=== PATIENT | male | born 1965 | race Caucasian/White ===

== ENCOUNTER → 2016-07-16 | Day surgery (SDC) | payer BC ==
[2016-07-10 07:58] VITALS: Ht 182.9 cm; Wt 168.2 kg
[~2016-07-16] VITALS: Ht 182.9 cm; Wt 168.2 kg
[~2016-07-16] MED LIST: ASPI81TA28 PO; BTP80 PO; CMD5 PO; FURO20TA PO; LIDOCAINE HCL 2% 2 ML VIAL (20MG/ML) ONE; LISI1TAB3 PO; MIDAZOLAM HCL 1 MG/ML 2ML VIAL ONE; ONDANSETRON INJ 2 MG/ML 2 ML VIAL IV PRN; OXYC-57 PO; PHEN-775 PO; PHEN95TA14 PO; PROPOFOL IV EMULSION 10 MG/ML 20 ML VIAL IV ONE; SOTA80TA PO; TAMS0.4C38 PO
[2016-07-16 09:41] VITALS: TEMP 36.6
--- NOTE | 2016-07-16 09:50 | Endo History and Physical ---
History & Physical Date of Service: Jul 16, 2016. Chief Complaint: screening Referring Physician: Liv CAPUTO History of Present Illness patient for CRC screening, no symptoms or family history. Past surgical history notable for an appendectomy and umbilical hernia repair. Past Surgical History Hx Cardiac Surgery: No Hx Internal Defibrillator: No Hx Pacemaker: No Hx Abdominal Surgery: Yes (APPY) Hx Cancer Surgery: No Hx Thoracic Surgery: No Hx Orthopedic: No Hx Urinary Tract Surgery: No Family History None Social History Smoking Status: Never Smoker Hx Alcohol Use: Yes (OCCASSIONALLY) Allergies Coded Allergies: No Known Allergies (Verified , 07/16/16) Current Medications Reported Home Medications Medications Dose Route/Sig Max Daily Dose Days Date Category Zestril (Lisinopril) 30 Mg Tab 30 Mg PO QAM 06/25/16 Reported Aspirin Ec (Aspirin) 81 Mg Tab 81 Mg PO QAM 01/01/16 Reported Vital Signs Weight (Kilograms): 168.18 Height (Feet): 6 Height (Inches): 0 Date Time Temp Pulse Resp B/P Pulse Ox O2 Delivery O2 Flow Rate FiO2 07/16/16 09:41 36.6 84 20 159/78 98 Room Air Physical Exam General Appearance: no apparent distress Respiratory/Chest: Auscultation: breath sounds normal Cardiovascular: Heart Auscultation: RRR Abdomen: Inspection & Palpation: soft Assessment and Plan Patient for CRC screening, discussed the risks to include bleeding, infection, peforation, pain, and missed polyps.
--- NOTE | 2016-07-16 10:43 | Discharge Instructions ---
Endoscopy Patient Instructions Date / Procedure(s) Performed Jul 16, 2016. Colonoscopy Allergy Information Coded Allergies: No Known Allergies (Verified , 07/16/16) Discharge Date / Findings Jul 16, 2016. Several colon polyps Internal hemorrhoids diverticulosis of the colon Medication Instructions Stopped Medication(s): stopped ASA Thursday Reported Home Medications Medications Dose Route/Sig Max Daily Dose Days Date Category Zestril (Lisinopril) 30 Mg Tab 30 Mg PO QAM 06/25/16 Reported Aspirin Ec (Aspirin) 81 Mg Tab 81 Mg PO QAM 01/01/16 Reported Provider Instructions Activity Restrictions - No exercising or heavy lifting for 24 hours. - Do not drink alcohol the day of the procedure. - Do not drive a car or operate machinery until the day after the procedure. - Do not make any important decisions or sign important papers in 24 hours after the procedure. Following Day: - Return to full activity which may include returning to work/school. Diet Start your diet with liquids and light foods (jello, soup, juice, toast). Then eat your usual diet if not nauseated. Treatment For Common After Affects For mild abdominal pain, bloating, or excessive gas: - Rest - Eat lightly - Lie on right side Follow-Up Information Await pathology results Repeat colonoscopy in 3 to 5 years depending on the pathology Anesthesia Information What You Should Know You have had a procedure that required some medicine to reduce anxiety and discomfort. This treatment is called moderate sedation. After receiving the treatment, you may be sleepy, but you will be able to breathe on your own. The effects of the treatment may last for several hours. Follow these instructions along with Activity/Diet recommendations noted above: * Do NOT do anything where dizziness or clumsiness would be dangerous. * Rest quietly at home today, then you can be up and about tomorrow. * Have a responsible person stay with you the rest of today. * You may have had an I.V. today. If so, you may take the dressing off later today. Recommendations Call your doctor if: * Trouble breathing * Continuous vomiting for more than 24 hours * Temperature above 101 degrees * Severe abdominal pain or bloating * Pain not relieved by pain medicine ordered * There is increased drainage or redness from any incision * A large amount of rectal bleeding greater than 2-3 tablespoons. (If you had a polyp/s removed or have hemorrhoids, a small amount of blood - from the rectum is to be expected.) * You have any unanswered questions or concerns. IN THE EVENT OF A SERIOUS EMERGENCY, GO TO THE NEAREST EMERGENCY ROOM Your discharge instructions were prepared by provider Missy Shultz. Patient Instructions Signature Page [place] Patient (or Guardian) Signature/Date: I have read and understand the instructions given to me by my caregivers. Caregiver/RN/Doctor Signature/Date: The above-named patient and/or guardian has received patient instructions on this date. + Original Patient Signature Page (only) stays with chart. Please make copy for patient.
[2016-07-16 11:05] VITALS: BP 146/89; PULSE 70; O2SAT 97
--- NOTE | 2016-07-16 12:34 | Anesthesiology Progress Note ---
Anesthesia Post Op Note Date & Time Jul 16, 2016 at 12:33 Vital Signs Pain Intensity: 0 Vital Signs Past 12 Hours Date Time Temp Pulse Resp B/P Pulse Ox O2 Delivery O2 Flow Rate FiO2 07/16/16 11:05 70 20 146/89 97 Room Air 07/16/16 10:50 76 20 140/76 96 Room Air 07/16/16 10:35 77 20 132/66 97 Room Air 07/16/16 09:41 36.6 84 20 159/78 98 Room Air Notes Mental Status: alert / awake / arousable Nausea / Vomiting: adequately controlled Pain: adequately controlled Airway Patency, RR, SpO2: stable & adequate BP & HR: stable & adequate Hydration State: stable & adequate Anesthetic Complications: no major complications apparent
== END | disposition home or self-care (01) ==
LOC: C.GI 09:22
PROVIDERS: ATTEND Internal Medicine Gastroenterology
DX: Z12.11 Encounter for screening for malignant neoplasm of colon (principal); D12.2 Benign neoplasm of ascending colon; D12.4 Benign neoplasm of descending colon; D12.5 Benign neoplasm of sigmoid colon; K57.32 Diverticulitis of large intestine without perforation or abscess without bleeding; K64.8 Other hemorrhoids; Z79.82 Long term (current) use of aspirin; I10 Essential (primary) hypertension; E66.9 Obesity, unspecified

== ENCOUNTER 2016-09-03 07:02 | Day surgery (SDC) | payer BC ==
[2016-08-25 14:14] VITALS: BMI 50.0
[~2016-09-03] VITALS: Ht 182.9 cm; Wt 165.9 kg
[~2016-09-03 07:02] MED LIST changes: -ASPI81TA28 PO; -BTP80 PO; +CEFAZOLIN 3000 MG/65 ML D5W IV SCH; -CMD5 PO; -FURO20TA PO; +LACTATED RINGER'S 1000ML 1,000 ML IV SCH; -LIDOCAINE HCL 2% 2 ML VIAL (20MG/ML) ONE; -LISI1TAB3 PO; -MIDAZOLAM HCL 1 MG/ML 2ML VIAL ONE; -ONDANSETRON INJ 2 MG/ML 2 ML VIAL IV PRN; -OXYC-57 PO; -PHEN-775 PO; -PHEN95TA14 PO; -PROPOFOL IV EMULSION 10 MG/ML 20 ML VIAL IV ONE; -SOTA80TA PO; -TAMS0.4C38 PO
[2016-09-03 07:44] VITALS: BP 154/80; PULSE 72; TEMP 36.7; O2SAT 99; Ht 182.9 cm; Wt 165.9 kg
[2016-09-03 07:44] LABS: HEMATOCRIT 42.1 % (42-52); MEAN CELL VOLUME 102.7 fL (80-100); MEAN CORPUSCULAR HEMOGLOBIN 35.1 pg (25-34); MEAN PLATELET VOLUME 8.7 fL (7.4-10.4); PLATELET COUNT 204 K/uL (130-400); WHITE BLOOD COUNT 5.07 K/uL (4.8-10.8)
[2016-09-03 07:47] LABS: MEAN CORPUSCULAR HGB CONC 34.2 g/dl (32-36)
[2016-09-03] MEDS ORDERED: FENTANYL CITRATE INJ 50 MCG/1 ML 2 ML VIAL ONE (08:13)
[2016-09-03] MEDS ORDERED: MIDAZOLAM HCL 1 MG/ML 2ML VIAL ONE (08:13)
[2016-09-03] MEDS ORDERED: KETAMINE HCL INJ 50 MG/ML 10 ML VIAL ONE (08:13)
[2016-09-03] MEDS ORDERED: HYDROmorphone INJ 1 MG/ML SYR IV PRN (09:00)
[2016-09-03] MEDS ORDERED: ATROPINE SULFATE 0.1 MG/ML 5ML SYR IV PRN (09:00)
[2016-09-03] MEDS ORDERED: FENTANYL CITRATE INJ 50 MCG/1 ML 2 ML VIAL IV PRN (09:00)
[2016-09-03] MEDS ORDERED: ONDANSETRON INJ 2 MG/ML 2 ML VIAL IV PRN (09:00)
[2016-09-03] MEDS ORDERED: EpHEDrine SULFATE INJ 50 MG/ML AMP IV PRN (09:00)
[2016-09-03] MEDS ORDERED: MEPERIDINE HCL 25 MG/ML CARP IV PRN (09:00)
[2016-09-03] MEDS ORDERED: LABETALOL HCL IV 5 MG/ML 20ML IV PRN (09:00)
--- NOTE | 2016-09-03 09:09 | History & Physical Bridge Note ---
H&P Re-Evaluation Bridge Note: I have examined the patient, reviewed the History & Physical and in the interval since the performance of the History & Physical I have noted the following changes of clinical significance: No changes noted
[2016-09-03] MEDS ORDERED: BELLADONNA/OPIUM SUPP 60 MG SUPP PR ONE (10:15)
[2016-09-03] MEDS ORDERED: DEXAMETHASONE SOD INJ 4 MG/ML VIAL ONE (10:20)
[2016-09-03] MEDS ORDERED: PROPOFOL IV EMULSION 10 MG/ML 20 ML VIAL IV ONE (10:20)
[2016-09-03] MEDS ORDERED: LIDOCAINE HCL 2% 2 ML VIAL (20MG/ML) ONE (10:20)
[2016-09-03] MEDS ORDERED: ROCURONIUM BROMIDE 10 MG/ML 5 ML VIAL ONE (10:20)
[2016-09-03] MEDS ORDERED: SODIUM CHLORIDE 0.9% INJ 10 ML VIAL ONE (10:33)
[2016-09-03] MEDS ORDERED: NEOSTIGMINE METHYLSULFATE 5 MG/5 ML SYR ONE (10:57)
[2016-09-03] MEDS ORDERED: GLYCOPYRROLATE INJ 0.2 MG/ML VIAL ONE (10:57)
--- NOTE | 2016-09-03 11:38 | [facility] Operative Report ---
Operative Report Operative Date Sep 03, 2016. Pre-Operative Diagnosis Large Right Kidney Stone Post-Operative Diagnosis same Procedure(s) Performed cysto right ureteroscopy, laser lithotripsy, right stent placement Surgeon Dr. Roselia Mckeon Fire Lookout Surgeon(s) none Estimated Blood Loss 5ML Findings large radio-opaque renal pelvis stone right Fluids 1700mL Specimens none per surgeon Dr. Roselia Mckeon Drains 6 fr 26 centimeter double J stent right Anesthesia GET Complication(s) None Disposition Recovery Room / PACU Indications large right renal pelvis stone filling the kidney right side. we plan staged right ureteroscopy with laser lithotripsy Description of Procedure Patient was given general GET anesthesia and placed in lithotomy position. His genitals were prepped and draped in sterile fashion. We used bariatric stirrups due to his size and weight of his legs. Time out held with team. I placed a 21 fr rigid cystoscope to bladder. The urethra is unremarkable. The prostate is trilobar but not long. The UOs are normal. I placed a stiff wire up right ureter and saw it reach kidney and stone on fluoro., I calibrated the right UO with the dual lumen cath. I placed a second wire and a 36 centimeter 12/14 fr ureteral access sheath. I spent 80 minutes lasering the large hard right renal pelvis stone. I have most of the middle vaporized but edges are adherent to the urothelium and bleed briskly imparing vision. I opted to stop and finish another day. I placed a 26 centimeter 6 Fr double J stent easily. There is brisk efflux after placement. I left bladder empty and concluded case. I placed a belladonna and opium suppository for post-op pain. He transferred to recovery under my escort, in stable condition. 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 Any exceptions are noted below.
[2016-09-03] MEDS ORDERED: OXYC-57 PO (11:39)
[2016-09-03] MEDS ORDERED: TAMS0.4C38 PO (11:39)
[2016-09-03] MEDS ORDERED: PHEN-775 PO (11:39)
--- NOTE | 2016-09-03 11:41 | Discharge Instructions ---
Discharge Instructions Date of Service Sep 03, 2016. Admission Reason for Admission: Right Kidney Stone Discharge Discharge Diagnosis / Problem: large right kidney stone Discharge Goals Goal(s): Increase independence Activity Recommendations Activity Limitations: resume your previous activity Lifting Limitations: none Exercise/Sports Limitations: as tolerated May Resume Sexual Activity: when tolerated Shower/Bathe: no limitations Driving or Machine Use: resume 1 day after discharge . Instructions / Follow-Up Instructions / Follow-Up urine will be very bloody for several days. We will work on the stone in another 2 weeks. take flomax daily take pyridium as needed if burning with urination use ibuprofen for mild pain and narcotic for severe pain. Discharge Diet Recommended Diet: Regular Diet Fluid Restriction: None Procedures Procedures Performed: Cystoscopy, Right Ureteroscopy, Laser Lithotripsy, Right Stent Placement Pending Studies Studies pending at discharge: no Medical Emergencies . Who to Call and When: Medical Emergencies: If at any time you feel your situation is an emergency, please call 911 immediately. . Non-Emergent Contact Non-Emergency issues call your: Urologist ([phone]) Call Non-Emergent contact if: temperature is above 100.5 . . "Provider Documentation" section prepared by Roselia Mckeon. . VTE Core Measure Inpt VTE Proph given/why not?: SCD's [place] Drug Monitoring Program Search Results: patient reviewed within database, no issues identified
--- NOTE | 2016-09-03 12:07 | DIAGNOSTIC IMAGING REPORT ---
INTRAOPERATIVE RADIOGRAPHS CLINICAL HISTORY: Nephrolithiasis. Right-sided laser lithotripsy and ureteral stent placement. Fluoroscopy time: 26 seconds. FINDINGS: 6 spot fluoroscopic views of the right abdomen from a retrograde ureterogram with lithotripsy and stent placement are correlated with abdominal CT dated 01/01/2016. The initial image shows a staghorn calculus in the right renal pelvis. There is catheterization of the right ureter and a lithotripsy device is noted. The final image shows a right ureteral stent having been deployed. Surgical clips are seen in the right lower quadrant. IMPRESSION: Intraoperative images from right sided lithotripsy and ureteral stent placement as above. See operative report for detailed findings. Electronically signed by: Kade Emerson M.D. 09/03/2016 12:05 PM Dictated Date/Time: 09/03/2016 12:03 PM
--- NOTE | 2016-09-03 12:17 | Anesthesiology Progress Note ---
Anesthesia Post Op Note Date & Time Sep 03, 2016 at 12:16 Vital Signs Pain Intensity: 0 Vital Signs Past 12 Hours Date Time Temp Pulse Resp B/P Pulse Ox O2 Delivery O2 Flow Rate FiO2 09/03/16 12:08 36.6 09/03/16 12:06 168/75 09/03/16 12:04 63 22 09/03/16 12:04 63 22 92 09/03/16 12:01 165/76 09/03/16 11:59 64 21 09/03/16 11:59 63 21 90 09/03/16 11:56 164/77 09/03/16 11:54 66 21 97 09/03/16 11:54 65 21 09/03/16 11:53 62 21 98 09/03/16 11:53 63 21 09/03/16 11:51 165/69 09/03/16 11:48 66 23 99 09/03/16 11:48 66 23 09/03/16 11:46 174/67 09/03/16 11:43 64 19 100 09/03/16 11:43 64 19 09/03/16 11:41 119/84 09/03/16 11:38 72 25 09/03/16 11:38 72 25 98 09/03/16 11:36 181/72 09/03/16 11:33 72 21 09/03/16 11:33 73 21 100 09/03/16 11:31 173/75 09/03/16 11:29 189/80 09/03/16 11:28 75 09/03/16 11:28 75 99 09/03/16 11:28 36.6 74 16 189/80 100 Mask 10 09/03/16 07:44 36.7 72 20 154/80 99 Room Air Notes Mental Status: alert / awake / arousable, participated in evaluation Pt Amnestic to Procedure: Yes Nausea / Vomiting: adequately controlled Pain: adequately controlled Airway Patency, RR, SpO2: stable & adequate BP & HR: stable & adequate Hydration State: stable & adequate Anesthetic Complications: no major complications apparent
[2016-09-03 12:25] VITALS: BP 144/82; PULSE 70; TEMP 37.1; O2SAT 94
[2016-09-03 12:55] VITALS: BP 159/85; PULSE 84; O2SAT 95
[2016-09-03 13:20] VITALS: BP 168/89; PULSE 73; TEMP 36.9; O2SAT 97
[2016-09-04] MEDS ORDERED: CEFAZOLIN 3000 MG/65 ML D5W IV SCH (06:00)
[2016-09-17] MEDS ORDERED: TAMS0.4C38 PO (10:19)
[2016-09-17] MEDS ORDERED: OXYC-57 PO (10:19)
[2016-09-17] MEDS ORDERED: PHEN-775 PO (10:19)
[2016-10-02] MEDS ORDERED: BTP80 PO (17:45)
[2016-10-02] MEDS ORDERED: CMD5 PO (17:49)
[2016-10-20] MEDS ORDERED: SOTA80TA PO (15:40)
== END 2016-09-03 13:23 | disposition home or self-care (01) ==
LOC: C.ACU 07:02
PROVIDERS: ATTEND Urology
DX: N20.0 Calculus of kidney (principal)

== ENCOUNTER → 2016-09-17 | Day surgery (SDC) | payer BC ==
[2016-09-10 11:48] VITALS: BMI 50.0
[~2016-09-17] VITALS: Ht 182.9 cm; Wt 165.9 kg
[~2016-09-17] MED LIST changes: +ASPI81TA28 PO; +ATROPINE SULFATE 0.1 MG/ML 5ML SYR IV PRN; +BELLADONNA/OPIUM SUPP 60 MG SUPP PR ONE; +BTP80 PO; -CEFAZOLIN 3000 MG/65 ML D5W IV SCH; +CEFAZOLIN IV 3,000 MG/65 ML D5W IV ONE; +CMD5 PO; +DEXAMETHASONE SOD INJ 4 MG/ML VIAL ONE; +EpHEDrine SULFATE INJ 50 MG/ML AMP IV PRN; +EpHEDrine SULFATE INJ 50 MG/ML AMP ONE; +FENTANYL CITRATE INJ 50 MCG/1 ML 2 ML VIAL IV PRN; +FENTANYL CITRATE INJ 50 MCG/1 ML 2 ML VIAL ONE; +FURO20TA PO; +LIDOCAINE HCL 2% 2 ML VIAL (20MG/ML) ONE; +LISI1TAB3 PO; +MIDAZOLAM HCL 1 MG/ML 2ML VIAL ONE; +ONDANSETRON INJ 2 MG/ML 2 ML VIAL IV PRN; +ONDANSETRON INJ 2 MG/ML 2 ML VIAL ONE; +OXYC-57 PO; +PHEN-775 PO; +PHEN95TA14 PO; +PHENYLEPHRINE 100MCG/ML 5ML SYR ONE; +PROPOFOL IV EMULSION 10 MG/ML 20 ML VIAL IV ONE; +ROCURONIUM BROMIDE 10 MG/ML 5 ML VIAL ONE; +SOTA80TA PO; +SUCCINYLCHOLINE CHLORIDE 20 MG/ML 10 ML VIAL IV ONE; +TAMS0.4C38 PO
[2016-09-17 05:35] VITALS: BP 159/75; PULSE 74; TEMP 36.6; O2SAT 96; Ht 182.9 cm; Wt 165.9 kg
--- NOTE | 2016-09-17 07:07 | History and Physical ---
History Date of Service: September 17, 2016. Chief Complaint: right staghorn kidney stone Primary Care Physician: Liv Cedillo Pt seen a urologist before?: Yes If yes, why?: stone History of Present Illness Patient presents for second session of lithotripsy of staghorn kidney stone. He had an uneventful recovery from the last treatment. He bled for about [address] Laboratory Labs were reviewed and are within normal limits unless listed below. Labs are available in the chart and at [facility] Problem List Medical Problems: (1) Acute appendicitis with rupture Status: Acute Past History Past Medical History: hypertension, other (morbid obesity, lymphedema) Family History no stones Social History Hx Tobacco Use In Past Year?: No Smoking: non-smoker Alcohol: socially Occupation status: employed Allergies Coded Allergies: No Known Allergies (Unverified , 09/17/16) Medications Home Medications: Home Meds and Scripts Medications Dose Route/Sig Max Daily Dose Days Date Category Percocet 5MG/325MG (Oxycodone/Acetaminophen) Tab 1 Tablet PO Q4H PRN 09/03/16 Rx Flomax (Tamsulosin Hcl) 0.4 Mg Cap 0.4 Mg PO DAILY 30 09/03/16 Rx Zestril (Lisinopril) 30 Mg Tab 30 Mg PO Q2D 06/25/16 Reported Aspirin Ec (Aspirin) 81 Mg Tab 81 Mg PO QAM 01/01/16 Reported Inpatient Medications: Current Inpatient Medications Medications (Trade) Dose Ordered Sig/Cleo Route Start Time Stop Time Status Last Admin Dose Admin Lactated Ringer's (Lr 1000ml) 1,000 ml @ 15 mls/hr Q24H IV 09/17/16 06:00 09/18/16 05:59 Review of Systems Review of Systems Constitutional: No chills, No fever, No weight loss Endocrine: No too cold, No too hot Gastrointestinal: No abdominal pain, No nausea, No vomiting Male : + blood in urine, + frequent urination, + kidney stones, + nocturia more than once/night Physical Exam Vital Signs: Vital Signs Past 12 Hours Date Time Temp Pulse Resp B/P Pulse Ox O2 Delivery O2 Flow Rate FiO2 09/17/16 05:35 36.6 74 18 159/75 96 Room Air Physical Exam: General Appearance: WD/WN, no apparent distress, + obese Eyes: bilateral eyes normal inspection ENT: hearing grossly normal Respiratory/Chest: lungs clear, normal breath sounds, no respiratory distress, no accessory muscle use Cardiovascular: regular rate, rhythm, + pertinent finding (edema) Extremities: non-tender, normal inspection, no calf tenderness, + pedal edema Neurologic/Psychiatric: alert, normal mood/affect, oriented x 3 Skin: normal color, warm/dry, no rash Assessment & Plan Assessment & Plan right staghorn kidney stone plan right ureteroscopy laser lithotripsy basket stone extraction stent exchange general anesthesia 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
--- NOTE | 2016-09-17 10:17 | [facility] Operative Report ---
Operative Report Operative Date September 17, 2016. Pre-Operative Diagnosis Right staghorn kidney stone Post-Operative Diagnosis same Procedure(s) Performed right ureteroscopy laser lithotripsy basket stone extraction stent exchange Surgeon Dr. Roselia Mckeon Route Delivery Service Driver Surgeon(s) None Estimated Blood Loss 10 mL Findings radio-opaque dense right staghorn stone, small ureter Fluids 1700mL Specimens Permanent specimens A: Right staghorn kidney stone for analysis Drains 6 fr 26 centimeter double J stent Anesthesia GET, glidescope Complication(s) None Disposition Recovery Room / PACU Indications large staghorn, obese patient , have opted for staged ureteroscopy rather than put him prone for PCNL. Description of Procedure Patient was given general GET anesthesia this time with glidescope and placed in lithotomy position. His genitals were prepped and draped in sterile fashion. We used bariatric stirrups due to his size and weight of his legs. Time out held with team. I placed a 22 fr rigid cystoscope to bladder. The urethra is unremarkable. The prostate is trilobar but not long. The UOs are normal. I grasped stent tip and withdrew to meatus. I placed a stiff wire thru stent up right ureter and saw it reach kidney and stone on fluoro. I removed stent and found it to be intact. I passed the flexible ureteroscope into the distal and mid ureter about a dozen time to remove dozens of stone fragments which had migrated down the ureter. I used a 2.4 Fr zero tip basket. His ureter has not dilated much with stent and space is tight. Once the ureter was free of stone to the UPJ I placed a second wire and placed a 46 centimeter 14/16 sheath, which would only pass to the top of mid ureter and no further. I spent 2 hours lasering the large hard right renal pelvis stone and removing dozens more fragments with the basket. I did switch to a shorter 14/ 16 36 centimeter sheath to reach into the calyces. I have all of the renal pelvis and 2 calyces free of stone with 2 more calyces still with large stone. I placed a 26 centimeter 6 Fr double J stent easily. There is brisk efflux after placement. Stone fragments were sent for analysis. I left bladder empty and concluded case. I placed a belladonna and opium suppository for post-op pain. He transferred to recovery under my escort, in stable condition. 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 Any exceptions are noted below.
--- NOTE | 2016-09-17 10:20 | Discharge Instructions ---
Discharge Instructions Date of Service September 17, 2016. Admission Reason for Admission: Kidney Stone Discharge Discharge Diagnosis / Problem: right staghorn kidney stone Discharge Goals Goal(s): Improve disease control Activity Recommendations Activity Limitations: resume your previous activity Lifting Limitations: none Exercise/Sports Limitations: none May Resume Sexual Activity: when tolerated Shower/Bathe: no limitations Driving or Machine Use: resume 1 day after discharge . Instructions / Follow-Up Instructions / Follow-Up urine will be bloody call for fever or severe burning repeat surgery in 2 weeks Discharge Diet Recommended Diet: Regular Diet Fluid Restriction: None Procedures Procedures Performed: Cystoscopy, Right Ureteroscopy, Laser Lithotripsy, Basket Stone Extaction; Right ureteral stent Exchange Pending Studies Studies pending at discharge: no Medical Emergencies . Who to Call and When: Medical Emergencies: If at any time you feel your situation is an emergency, please call 911 immediately. . Non-Emergent Contact Non-Emergency issues call your: Urologist ([phone]) Call Non-Emergent contact if: temperature is above 100.5 . . "Provider Documentation" section prepared by Roselia Mckeon. . VTE Core Measure Inpt VTE Proph given/why not?: [place]CD's [place] Drug Monitoring Program Search Results: patient reviewed within database, no issues identified
[2016-09-17 10:45] VITALS: BP 136/73; PULSE 82; TEMP 36.4; O2SAT 94
--- NOTE | 2016-09-17 10:50 | Anesthesiology Progress Note ---
Anesthesia Post Op Note Date & Time September 17, 2016 at 10:50 Vital Signs Pain Intensity: 1 Vital Signs Past 12 Hours Date Time Temp Pulse Resp B/P Pulse Ox O2 Delivery O2 Flow Rate FiO2 09/17/16 10:40 36.5 80 20 128/61 95 Room Air 09/17/16 10:30 82 20 131/68 93 Room Air 09/17/16 10:20 82 20 128/62 100 Mask 10 09/17/16 10:10 78 14 103/52 100 Mask 10 09/17/16 10:01 36.0 81 14 168/98 97 Mask 10 09/17/16 05:35 36.6 74 18 159/75 96 Room Air Notes Mental Status: alert / awake / arousable, participated in evaluation Pt Amnestic to Procedure: Yes Nausea / Vomiting: adequately controlled Pain: adequately controlled Airway Patency, RR, SpO2: stable & adequate BP & HR: stable & adequate Hydration State: stable & adequate Anesthetic Complications: no major complications apparent
[2016-09-17 11:15] VITALS: BP 140/85; PULSE 76; TEMP 36.4; O2SAT 94
--- NOTE | 2016-09-17 12:44 | DIAGNOSTIC IMAGING REPORT ---
FLUOROSCOPIC IMAGES FROM RIGHT RETROGRADE EXAM CLINICAL HISTORY: Cystoscopy. Lithotripsy. Extraction. COMPARISON STUDY: Fluoroscopic images September 03, 2016. Fluoroscopy time: 38 seconds. FINDINGS: 3 fluoroscopic images from right retrograde exam were obtained and demonstrate a right ureteral stent exchange. A right renal staghorn calculus is suspected and partially imaged on this exam. Distal aspect of the stent is within the bladder. IMPRESSION: Fluoroscopic images from right retrograde exam with stent exchange. Electronically signed by: Agus Servin M.D. 09/17/2016 12:43 PM Dictated Date/Time: 09/17/2016 12:40 PM
== END | disposition home or self-care (01) ==
LOC: C.ACU 04:57
PROVIDERS: ATTEND Urology
DX: N20.0 Calculus of kidney (principal); N18.9 Chronic kidney disease, unspecified; I12.9 Hypertensive chronic kidney disease with stage 1 through stage 4 chronic kidney disease, or unspecified chronic kidney disease; E66.01 Morbid (severe) obesity due to excess calories; Z68.43 Body mass index [BMI] 50.0-59.9, adult

== ENCOUNTER 2016-09-29 10:55 | Inpatient (IN) | payer BC ==
[~2016-09-29] VITALS: Ht 182.9 cm; Wt 158.7 kg
[~2016-09-29 10:55] MED LIST changes: -ASPI81TA28 PO; -ATROPINE SULFATE 0.1 MG/ML 5ML SYR IV PRN; -BELLADONNA/OPIUM SUPP 60 MG SUPP PR ONE; -BTP80 PO; -CEFAZOLIN IV 3,000 MG/65 ML D5W IV ONE; -CMD5 PO; -DEXAMETHASONE SOD INJ 4 MG/ML VIAL ONE; -EpHEDrine SULFATE INJ 50 MG/ML AMP IV PRN; -EpHEDrine SULFATE INJ 50 MG/ML AMP ONE; -FENTANYL CITRATE INJ 50 MCG/1 ML 2 ML VIAL IV PRN; -FENTANYL CITRATE INJ 50 MCG/1 ML 2 ML VIAL ONE; -FURO20TA PO; -LACTATED RINGER'S 1000ML 1,000 ML IV SCH; -LIDOCAINE HCL 2% 2 ML VIAL (20MG/ML) ONE; -LISI1TAB3 PO; -MIDAZOLAM HCL 1 MG/ML 2ML VIAL ONE; -ONDANSETRON INJ 2 MG/ML 2 ML VIAL IV PRN; -ONDANSETRON INJ 2 MG/ML 2 ML VIAL ONE; -PHEN-775 PO; -PHEN95TA14 PO; -PHENYLEPHRINE 100MCG/ML 5ML SYR ONE; -PROPOFOL IV EMULSION 10 MG/ML 20 ML VIAL IV ONE; -ROCURONIUM BROMIDE 10 MG/ML 5 ML VIAL ONE; -SOTA80TA PO; -SUCCINYLCHOLINE CHLORIDE 20 MG/ML 10 ML VIAL IV ONE
[2016-09-29] MEDS ORDERED: ASPI81TA28 PO (11:02)
[2016-09-29] MEDS ORDERED: TAMS0.4C38 PO (11:04)
[2016-09-29] MEDS ORDERED: PHEN95TA14 PO (11:05)
[2016-09-29] MEDS ORDERED: DILTIAZEM HCL 5 MG/ML 5 ML VIAL IV STA (11:16)
[2016-09-29] MEDS ORDERED: DILTIAZEM BOLUS / DRIP IV STA ×2 (11:16→14:00)
[2016-09-29] MEDS ORDERED: DILTIAZEM HCL INJ 125 MG in DEXTROSE 5% 100ML IV PRN (11:30)
--- NOTE | 2016-09-29 11:33 | DIAGNOSTIC IMAGING REPORT ---
CHEST ONE VIEW PORTABLE CLINICAL HISTORY: Chest pain and shortness of breath COMPARISON STUDY: 01/01/2016 FINDINGS: The heart is at the upper limits of normal in size. There is no failure. There is no focal pulmonary consolidation. There are no pleural effusions.[ IMPRESSION: No active disease in the chest. Electronically signed by: Mert Araya M.D. 09/29/2016 11:31 AM Dictated Date/Time: 09/29/2016 11:31 AM
[2016-09-29 11:49] LABS: PARTIAL THROMBOPLASTIN RATIO 1.2; PROTHROMBIN TIME (PATIENT) 10.7 SECONDS (9.0-12.0)
[2016-09-29 11:56] LABS: CHLORIDE 107 mmol/L (98-107); POTASSIUM 3.8 mmol/L (3.5-5.1); SODIUM 141 mmol/L (136-145)
[2016-09-29 12:01] LABS: ALT/SGPT 16 U/L (12-78); AST/SGOT 14 U/L (15-37); BLOOD UREA NITROGEN 12 mg/dl (7-18); BUN/CREATININE RATIO 10.3 (10-20); CALCIUM 9.4 mg/dl (8.5-10.1); CARBON DIOXIDE 26 mmol/L (21-32); GLUCOSE 102 mg/dl (70-99)
[2016-09-29 12:03] LABS: MEAN CORPUSCULAR HGB CONC 34.6 g/dl (32-36); MEAN PLATELET VOLUME 9.6 fL (7.4-10.4); PLATELET COUNT 185 K/uL (130-400)
[2016-09-29 12:06] LABS: ALB/GLOB RATIO 0.9 (0.9-2); ALKALINE PHOSPHATASE 59 U/L (45-117); CKMB/CK RATIO 0.7 (0-3.0)
[2016-09-29 12:18] LABS: HEMATOCRIT 43.9 % (42-52); MEAN CELL VOLUME 101.4 fL (80-100); MEAN CORPUSCULAR HEMOGLOBIN 35.1 pg (25-34); RED BLOOD COUNT 4.33 M/uL (4.7-6.1); WHITE BLOOD COUNT 8.21 K/uL (4.8-10.8)
[2016-09-29] MEDS ORDERED: SODIUM CHLORIDE 0.9% 500ML 500 ML IV STA (12:54)
[2016-09-29] MEDS ORDERED: LISI1TAB3 PO (13:13)
[2016-09-29] MEDS ORDERED: ACETAMINOPHEN 325 MG TAB PO PRN (14:00)
[2016-09-29] MEDS ORDERED: ONDANSETRON INJ 2 MG/ML 2 ML VIAL IV PRN (14:00)
[2016-09-29] MEDS ORDERED: IV FLUIDS COMPLETED PRN ×2 (14:00→15:45)
[2016-09-29] MEDS ORDERED: FURO20TA PO (14:06)
[2016-09-29 14:51] LABS: URINE APPEARANCE CLOUDY (CLEAR); URINE BILIRUBIN NEG (NEG); URINE COLOR YELLOW; URINE EPITHELIAL CELL AUTO >30 /lpf (0-5); URINE NITRITE NEG (NEG); UROBILINOGEN NEG (NEG); ZZUR CULT IF INDIC CLEAN CATCH YES
[2016-09-29 14:55] VITALS: BP 163/80; PULSE 86; TEMP 36.9; O2SAT 99; Ht 182.9 cm; Wt 158.7 kg
[2016-09-29 14:55] LABS: MANUAL MICROSCOPIC REQUIRED? NO; REVIEW REQ? YES
[2016-09-29] MEDS ORDERED: PERFLUTREN LIPID MICROSPHERE (DEFINITY) IV ONE (15:29)
[2016-09-29 15:49] VITALS: BP 114/73; PULSE 87; TEMP 36.6; O2SAT 97
--- NOTE | 2016-09-29 16:59 | EMERGENCY ROOM VISIT NOTE ---
History Report prepared by Salvador: Rosa Elena Thurston Under the Supervision of: Dr. Kodak Sinclair M.D. First contact with patient: 11:13 Chief Complaint: CARDIAC ASSESSMENT Stated Complaint: RESPIRATORY/ CHEST PAIN Nursing Triage Summary: pt working at [employer] at 0930 c/o substernal cp, stationary, dull, c/o dizziness and sob, 2 months ago this happened and resolved on its own, pt went to the breakroom at 1015 c/o extreme sob unable to walk any further, sat down recovered on own, police responded and applied o2 felt much better denies any sob or cp on arrival of ems, took 81 mg asa this am, afib on monitor, hx kidney stones pt is scheduled for surgery on . History of Present Illness The patient is a 50 year old male who presents to the Emergency Room for a cardiac assessment. The patient was working at [employer] this morning when he developed a sensation of "fluttering" in his throat around 930am. He then developed shortness of breath and slight, dull chest pain. This pain did not radiate anywhere. He rates the pain as a 2/10 in severity and states that it has resolved at this time. He is still experiencing the shortness of breath. He states that it feels like he has just done an intense work-out. Police responded to the 911 call, and the patient felt better with oxygen. He was brought to the ED by ambulance. EMS found the patient to be in A-fib. He does not have a history of A-fib. The patient states that he has experienced symptoms like this in the past and they typically resolve on their own in about 30 minutes. He initially thought today's symptoms were due to anxiety because he has been more anxious lately. He denies any recent alcohol use. Pt denies LOC , headache, fevers, chills, diaphoresis, visual changes, neck pain, tearing pain radiating to the back, uncontrolled hypertension, leg swelling, coagulation abnormalities, prolonged travel, recent surgery or immobilization, nausea, vomiting, abdominal pain, melena, hematochezia, numbness, lymphadenopathy, rash, or other complaints. He is scheduled to have surgery later this week for a kidney stone. He has been urinating more frequently due to his stone. 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 A total of ten systems were reviewed and were otherwise negative. Past Medical & Surgical Medical Problems: (1) Atrial fibrillation (2) Hypertension Family History No pertinent history stated. Social History Smoking Status: Never Smoker Alcohol Use: occasionally Housing Status: lives with family Occupation Status: employed Current/Historical Medications Scheduled Aspirin (Aspirin Ec), 81 MG PO QAM Furosemide (Lasix), 20 MG PO UD Lisinopril (Zestril), 30 MG PO Q2D Phenazopyridine Hcl (Azo Tabs), 190 MG PO DAILY Tamsulosin Hcl (Flomax), 0.4 MG PO DAILY Allergies Coded Allergies: No Known Allergies (Unverified , 09/29/16) Physical Exam Vital Signs Date Time Temp Pulse Resp B/P Pulse Ox O2 Delivery O2 Flow Rate FiO2 09/29/16 13:33 94 18 99/68 100 Room Air 09/29/16 13:26 97 09/29/16 13:06 98 18 96/52 95 Room Air 09/29/16 12:01 101/60 09/29/16 11:55 104 23 120/78 98 09/29/16 11:46 96/60 09/29/16 11:40 120 19 98 09/29/16 11:36 101/55 09/29/16 11:30 132 09/29/16 11:25 144 32 94 09/29/16 11:13 127 96 Room Air 09/29/16 11:12 100 Room Air 09/29/16 11:10 133 20 99 09/29/16 11:04 144 09/29/16 11:03 100 Room Air 09/29/16 11:03 36.4 132 22 115/78 100 Room Air 09/29/16 11:03 100 Room Air 09/29/16 11:01 115/78 Physical Exam GENERAL: Awake, alert, well-appearing, in no distress HENT: Normocephalic, atraumatic. Oropharynx unremarkable. EYES: Normal conjunctiva. Sclera non-icteric. NECK: Supple. No nuchal rigidity. FROM. No JVD. RESPIRATORY: Clear to auscultation. CARDIAC: Tachycardic rate, irregular rhythm. Extremities warm and well perfused. Pulses equal. ABDOMEN: Soft, non-distended. No tenderness to palpation. No rebound or guarding. No masses. RECTAL: Deferred. MUSCULOSKELETAL: Chest examination reveals no tenderness. The back is symmetrical on inspection without obvious abnormality. There is no CVA tenderness to palpation. No joint edema. LOWER EXTREMITIES: Calves are equal size bilaterally and non-tender. 1+ edema. No discoloration. NEURO: Normal sensorium. No sensory or motor deficits noted. SKIN: No rash or jaundice noted. Medical Decision & Procedures ER Provider Diagnostic Interpretation: Radiology results as stated below per my review and radiologist interpretation: CHEST ONE VIEW PORTABLE CLINICAL HISTORY: Chest pain and shortness of breath COMPARISON STUDY: 01/01/2016 FINDINGS: The heart is at the upper limits of normal in size. There is no failure. There is no focal pulmonary consolidation. There are no pleural effusions.[ IMPRESSION: No active disease in the chest. Electronically signed by: Mert Araya M.D. 09/29/2016 11:31 AM Dictated Date/Time: 09/29/2016 11:31 AM Laboratory Results 09/29/16 11:10 09/29/16 11:10 Test 09/29/16 11:10 09/29/16 11:55 Red Blood Count 4.33 M/uL (4.7-6.1) Mean Corpuscular Volume 101.4 fL (80-100) Mean Corpuscular Hemoglobin 35.1 pg (25-34) Mean Corpuscular Hemoglobin Concent 34.6 g/dl (32-36) RDW Standard Deviation 46.2 fL (36.4-46.3) RDW Coefficient of Variation 12.5 % (11.5-14.5) Mean Platelet Volume 9.6 fL (7.4-10.4) Prothrombin Time 10.7 SECONDS (9.0-12.0) Prothromb Time International Ratio 1.0 (0.9-1.1) Activated Partial Thromboplast Time 31.1 SECONDS (21.0-31.0) Partial Thromboplastin Ratio 1.2 Anion Gap 8.0 mmol/L (3-11) Est Creatinine Clear Calc Drug Dose 116.1 ml/min Estimated GFR () 81.2 Estimated GFR (Non- 70.1 BUN/Creatinine Ratio 10.3 (10-20) Calcium Level 9.4 mg/dl (8.5-10.1) Total Bilirubin 0.4 mg/dl (0.2-1) Aspartate Amino Transf (AST/SGOT) 14 U/L (15-37) Alanine Aminotransferase (ALT/SGPT) 16 U/L (12-78) Alkaline Phosphatase 59 U/L (45-117) Total Creatine Kinase 138 U/L (39-308) Creatine Kinase MB 1.0 ng/ml (0.5-3.6) Creatine Kinase MB Ratio 0.7 (0-3.0) Troponin I < 0.015 ng/ml (0-0.045) Total Protein 7.9 gm/dl (6.4-8.2) Albumin 3.7 gm/dl (3.4-5.0) Globulin 4.2 gm/dl (2.5-4.0) Albumin/Globulin Ratio 0.9 (0.9-2) Thyroid Stimulating Hormone (TSH) 2.790 uIu/ml (0.300-4.500) Urine Color YELLOW Urine Appearance CLOUDY (CLEAR) Urine pH 6.0 (4.5-7.5) Urine Specific Craig 1.010 (1.000-1.030) Urine Protein 2+ (NEG) Urine Glucose (UA) NEG (NEG) Urine Ketones NEG (NEG) Urine Occult Blood 3+ (NEG) Urine Nitrite NEG (NEG) Urine Bilirubin NEG (NEG) Urine Urobilinogen NEG (NEG) Urine Leukocyte Esterase MODERATE (NEG) Urine WBC (Auto) 10-30 /hpf (0-5) Urine RBC (Auto) 5-10 /hpf (0-4) Urine Hyaline Casts (Auto) 5-10 /lpf (0-5) Urine Epithelial Cells (Auto) >30 /lpf (0-5) Urine Bacteria (Auto) NEG (NEG) Urine Renal Epithelial Cells 0-5 /lpf (0-5) Laboratory results reviewed by me. Medications Administered Medications (Trade) Dose Ordered Sig/Cleo Route Start Time Stop Time Status Last Admin Dose Admin Diltiazem HCl 10 mg 10 mg NOW STAT IV 09/29/16 11:16 09/29/16 11:18 DC 09/29/16 11:29 10 MG Diltiazem HCl 125 mg/Dextrose 125 ml @ 5 mls/hr Q24H PRN IV 09/29/16 11:30 10/29/16 11:29 09/29/16 11:36 5 MLS/HR Sodium Chloride (Nss 500ml) 500 ml @ 999 mls/hr Q31M STAT IV 09/29/16 12:54 09/29/16 13:24 DC 09/29/16 13:04 999 MLS/HR ECG Indication: SOB/dyspnea Rate (beats per minute): 127 Rhythm: atrial fibrillation (with RVR) Findings: nonspecific-ST abn, other (no WPW) ED Course 1113: The patient was evaluated in room C7. A complete history and physical exam was performed. 1116: Diltiazem HCl 125 ml @ 5 mls/hr IV, Cardizem 10 mg IV 1254: NSS 500 ml @ 999 mls/hr IV 1257: I spoke with Dr. Donald. We discussed the patient's results and treatment plan. [facility]. 1305: I reassessed the patient at this time. He is feeling better and resting comfortably. I discussed the results and treatment plan with the patient. I answered all pertaining questions that he had. He expressed understanding and verbalized agreement. Medical Decision Triage Nursing notes reviewed. The patient's presentation and history were concerning for palpitations and shortness of breath. Etiologies such as ectopy, cardiac dysrhythmia, electrolyte abnormality, thyroid dysfunction, pulmonary embolism, infection, gastrointestinal, as well as others were entertained. The patient was evaluated. He was found to be in rapid atrial fibrillation. His chest x-ray, chemistry panel, coags and cardiac markers were unremarkable. The patient was placed on a diltiazem drip after 10 mg bolus. His heart rate improved. He was still in atrial fibrillation. His blood pressure was mildly low but he was tolerating this very well. The patient will need further evaluation and management in the hospital. Internal medicine was consulted. The patient was evaluated in the Emergency Room for further treatment. The chart was completed utilizing [employer] voice recognition software. Grammatical errors, random word insertions, pronoun errors, and incomplete sentences are an occasional consequence of this system due to software limitations, ambient noise, and hardware issues. Any formal questions or concerns about the content, text, or information contained within the body of this dictation should be directly addressed to the physician for clarification. Consults Time Called: [phone] Consulting Physician: Dr. Donald Returned Call: [phone] Donald. We discussed the patient's results and treatment plan. [facility]. Impression Primary Impression: Atrial fibrillation with rapid ventricular response Scribe Attestation The scribe's documentation has been prepared under my direction and personally reviewed by me in its entirety. I confirm that the note above accurately reflects all work, treatment, procedures, and medical decision making performed by me. Departure Information Dispostion Being Evaluated By Hospitalist Referrals Rohan Murray M.D. (MEDICAL) (PCP) Patient Instructions My [facility]
[2016-09-29] MEDS ORDERED: ASPIRIN 81 MG CHEW PO STA (17:35)
--- NOTE | 2016-09-29 17:57 | History and Physical ---
History & Physical Date & Time of Service: September 29, 2016 at 14:08 Chief Complaint: Respiratory/ Chest Pain Primary Care Physician: Liv Cedillo History of Present Illness Source: patient, clinic records This is a 50 year old male with PMH of hypertension, dyslipidemia, obesity, and other problems listed below who presents to the ED with fluttering in chest. Patient states he was in his usual state of health until 9 am this morning while working at [employer] he developed fluttering in his chest. His work involved lifting boxes 40 lb or less which he typically does with no issues. While walking to break room he developed associated SOB, dull discomfort in left chest which was nonradiating, diaphoresis, lightheadedness. He improved with rest but fluttering and SOB returned when he was walking back to the work area. 911 was called and EMS found patient to be in atrial fibrillation. In the ER rate was up to 140s with EKG showing Afib. Patient was started on Cardizem bolus and drip with improvement of rate to 90s-100. Patient is now feeling asymptomatic. Patient states he has a staghorn renal calculus and has undergone 2 of [address] Mckeon with the next planned for 10/01/16. He has urinary frequency while on Flomax and has been passing stone pieces. He does not believe he has had any UTI's. He reports chronic BLLE edema which increases throughout the day and resolves with elevation of the legs. He denies prior exertional chest pain or SOB. He denies fever, chills, weight gain, focal neurological symptoms, URI symptoms, cough, N/V/D, dysuria, hematuria, calf pain , abnormal bleeding. Patient denies prior dx of AF. He reports having a similar episode of fluttering a few months ago lasting 15 minutes. No history of DM, stroke, TIA. No known hx of valvular disease or CHF. Has not had echo or stress test in the past. Past Medical/Surgical History Medical Problems: (1) Dyslipidemia Status: Chronic (2) Hypertension Status: Chronic (3) Obesity, Class III, BMI 40-49.9 (morbid obesity) Status: Chronic (4) Staghorn renal calculus Status: Chronic Surgical Problems: (1) H/O lithotripsy Status: Chronic (2) H/O umbilical hernia repair Status: Chronic (3) Hx of tympanostomy tubes Status: Chronic (4) S/P laparoscopic appendectomy Status: Chronic (5) S/P tonsillectomy Status: Chronic Family History Stroke FATHER Valvular heart disease MOTHER No family history of arrhythmia or CAD. Social History Drinks 1 cup decaf coffee and 2 diet Pepsi per day. Smoking Status: Never Smoker Alcohol Use: occasionally (occasional glass of wine. none in past few days. ) Drug Use: none Occupational Status: employed ([employer]) Allergies Coded Allergies: No Known Allergies (Unverified , 09/29/16) Home Medications Scheduled Aspirin (Aspirin Ec), 81 MG PO QAM Furosemide (Lasix), 20 MG PO UD Lisinopril (Zestril), 30 MG PO Q2D Phenazopyridine Hcl (Azo Tabs), 190 MG PO DAILY Tamsulosin Hcl (Flomax), 0.4 MG PO DAILY Physical Exam Vital Signs Date Time Temp Pulse Resp B/P Pulse Ox O2 Delivery O2 Flow Rate FiO2 09/29/16 13:33 94 18 99/68 100 Room Air 09/29/16 13:26 97 09/29/16 13:06 98 18 96/52 95 Room Air 09/29/16 12:01 101/60 09/29/16 11:55 104 23 120/78 98 09/29/16 11:46 96/60 09/29/16 11:40 120 19 98 09/29/16 11:36 101/55 09/29/16 11:30 132 09/29/16 11:25 144 32 94 09/29/16 11:13 127 96 Room Air 09/29/16 11:12 100 Room Air 09/29/16 11:10 133 20 99 09/29/16 11:04 144 09/29/16 11:03 100 Room Air 09/29/16 11:03 36.4 132 22 115/78 100 Room Air 09/29/16 11:03 100 Room Air 09/29/16 11:01 115/78 General Appearance: no apparent distress, + obese, + pertinent finding ( pleasant alert 50 y/o male, not in distress) Head: normocephalic, atraumatic Eyes: normal inspection, PERRL, EOMI ENT: hearing grossly normal, pharynx normal Neck: supple, trachea midline Respiratory/Chest: lungs clear, normal breath sounds, no respiratory distress Cardiovascular: no murmur, + irregularly irregular (rate 90-100) Abdomen/GI: normal bowel sounds, non tender, soft Extremities/Musculoskelatal: no calf tenderness, normal capillary refill, + pertinent finding (trace pretibial edema bilaterally) Neurologic/Psych: alert, normal mood/affect, oriented x 3, + pertinent finding (no focal deficit on gross examination) Skin: normal color, warm/dry Diagnostics Laboratory Results Results Past 24 Hours Test 09/29/16 11:10 Range/Units White Blood Count 8.21 4.8-10.8 K/uL Red Blood Count 4.33 4.7-6.1 M/uL Hemoglobin 15.2 14.0-18.0 g/dL Hematocrit 43.9 42-52 % Mean Corpuscular Volume 101.4 80-100 fL Mean Corpuscular Hemoglobin 35.1 25-34 pg Mean Corpuscular Hemoglobin Concent 34.6 32-36 g/dl RDW Standard Deviation 46.2 36.4-46.3 fL RDW Coefficient of Variation 12.5 11.5-14.5 % Platelet Count 185 130-400 K/uL Mean Platelet Volume 9.6 7.4-10.4 fL Prothrombin Time 10.7 9.0-12.0 SECONDS Prothromb Time International Ratio 1.0 0.9-1.1 Activated Partial Thromboplast Time 31.1 21.0-31.0 SECONDS Partial Thromboplastin Ratio 1.2 Sodium Level 141 136-145 mmol/L Potassium Level 3.8 3.5-5.1 mmol/L Chloride Level 107 98-107 mmol/L Carbon Dioxide Level 26 21-32 mmol/L Anion Gap 8.0 3-11 mmol/L Blood Urea Nitrogen 12 7-18 mg/dl Creatinine 1.20 0.60-1.40 mg/dl Est Creatinine Clear Calc Drug Dose 116.1 ml/min Estimated GFR () 81.2 Estimated GFR (Non- 70.1 BUN/Creatinine Ratio 10.3 10-20 Random Glucose 102 70-99 mg/dl Calcium Level 9.4 8.5-10.1 mg/dl Total Bilirubin 0.4 0.2-1 mg/dl Aspartate Amino Transf (AST/SGOT) 14 15-37 U/L Alanine Aminotransferase (ALT/SGPT) 16 12-78 U/L Alkaline Phosphatase 59 45-117 U/L Total Creatine Kinase 138 39-308 U/L Creatine Kinase MB 1.0 0.5-3.6 ng/ml Creatine Kinase MB Ratio 0.7 0-3.0 Troponin I < 0.015 0-0.045 ng/ml Total Protein 7.9 6.4-8.2 gm/dl Albumin 3.7 3.4-5.0 gm/dl Globulin 4.2 2.5-4.0 gm/dl Albumin/Globulin Ratio 0.9 0.9-2 Diagnostic Radiology CHEST ONE VIEW PORTABLE CLINICAL HISTORY: Chest pain and shortness of breath COMPARISON STUDY: 01/01/2016 FINDINGS: The heart is at the upper limits of normal in size. There is no failure. There is no focal pulmonary consolidation. There are no pleural effusions.[ IMPRESSION: No active disease in the chest. EKG atrial fibrillation with RVR, rate 127, nonspecific ST and T wave abnormality, when compared to prior EKG Afib is new, rate increased by 45 bpm, nonspecific T wave abnormality worse in inferior leads Impression Assessment and Plan NEW ONSET ATRIAL FIBRILLATION WITH RVR Rate up to 140s in ER -> improved to 90s with Cardizem bolus and drip CXR- no acute findings; UA- possibly infected, c/o frequency, known staghorn calculus -> start IV Rocephin Potassium WNL, check Mag-pending, TSH WNL Initial troponin negative; EKG with nonspecific STTWA Chest pain (resolved) possibly due to AF, will r/o ACS Trend serial cardiac enzymes Aspirin 324 mg and atorvastatin 80 mg x 1 dose Check echo Lipid panel in am Cardizem drip continued- will transition to PO Cardizem this evening CHADS2 score 1 for HTN Consult cardiology HYPERTENSION BP is stable On Cardizem drip; being transitioned to PO Cardizem Hold lisinopril and Lasix for now DYSLIPIDEMIA Will give Lipitor 80 mg x 1 Check fasting lipid panel in am STAGHORN CALCULUS S/p 2 recent lithotripsy procedures, planned for 3rd procedure on 10/01- patient aware it will need to be postponed Continue Flomax and Azo F/u with urology as outpatient LYMPHEDEMA Hold Lasix for now DVT PROPHYLAXIS Heparin SQ FULL CODE DISPOSITION Admission to telemetry Follows with Dr. Murray for primary care Patient seen in collaboration with Dr. Donald. Please see her addendum. I have seen and evaluated the patient and discussed the case with the provider above. For new onset atrial fibrillation, there are no signs/symptoms of PE or pulmonary infection, other infection, abnormal thyroid function, heart disease present. TTE ordered to evaluate structure/function of heart. Rate being controlled with dilt drip and will transition to PO. Cards added heparin drip while contemplating long-term plan. I agree with the assessment and plan with the exceptions that I don't agree he has lymphedema-he is just obese. Additionally, I don't see a need to hold his lisinopril, and have restarted it in the morning. Lasix may be restarted at the discretion of the provider tomorrow. Odilon, DO Level of Care Telemetry Resuscitation Status FULL RESUSCITATION VTE Prophylaxis VTE Risk Assessment Done? Y/N: Yes Risk Level: Moderate Given or contraindicated: Other Anticoagulation (heparin)
[2016-09-29 17:58] LABS: CKMB/CK RATIO 0.7 (0-3.0)
[2016-09-29] MEDS ORDERED: DILTIAZEM HCL 30 MG TAB PO ONE (18:00)
[2016-09-29] MEDS ORDERED: ATORVASTATIN 40 MG TAB PO ONE (18:15)
[2016-09-29] MEDS: CEFTRIAXONE SOD INJ 1 GM in DEXTROSE 5% ADD-VANTAGE 50ML 50 ML IV SCH (18:20)
[2016-09-29 19:38] VITALS: BP 114/74; PULSE 75; TEMP 36.8; O2SAT 96
[2016-09-29] MEDS ORDERED: HEPARIN IV BOLUS 9,000 UNIT in SYRINGE 0 ML IV ONE (19:45)
[2016-09-29] MEDS: DILTIAZEM HCL 60 MG TAB PO SCH (20:04)
[2016-09-29] MEDS: HEPARIN 25,000 UNIT/500ML D5W 500 ML IV PRN (20:05)
[2016-09-29] MEDS ORDERED: DILTIAZEM HCL 30 MG TAB PO SCH (21:00)
[2016-09-29] MEDS ORDERED: HEPARIN SOD 5000 UNIT/0.5 ML CARP SQ SCH (22:00)
[2016-09-29 23:38] VITALS: BP 120/77; PULSE 98; TEMP 36.7; O2SAT 95
[2016-09-30] VITALS (7 sets, daily range): BP systolic 109–136; BP diastolic 70–79; PULSE 69–81; TEMP 36.4–36.9; O2SAT 95–98
[2016-09-30 02:42] LABS: PARTIAL THROMBOPLASTIN RATIO 2.7
[2016-09-30 06:31] LABS: HEMATOCRIT 41.7 % (42-52); MEAN CELL VOLUME 102.2 fL (80-100); MEAN CORPUSCULAR HEMOGLOBIN 34.1 pg (25-34); MEAN CORPUSCULAR HGB CONC 33.3 g/dl (32-36); MEAN PLATELET VOLUME 9.1 fL (7.4-10.4); PLATELET COUNT 208 K/uL (130-400); RED BLOOD COUNT 4.08 M/uL (4.7-6.1)
[2016-09-30 07:18] LABS: BUN/CREATININE RATIO 16.5 (10-20); CHOLESTEROL/HDL RATIO 4.2; MAGNESIUM 2.3 mg/dl (1.8-2.4); POTASSIUM 4.6 mmol/L (3.5-5.1)
[2016-09-30] MEDS: ASPIRIN 81 MG ECTAB PO SCH (07:33)
[2016-09-30] MEDS: DILTIAZEM HCL 60 MG TAB PO SCH ×2 (07:33→13:32)
[2016-09-30] MEDS: TAMSULOSIN HCL 0.4 MG CAP PO SCH (07:34)
[2016-09-30] MEDS: HEPARIN 25,000 UNIT/500ML D5W 500 ML IV PRN ×2 (07:36→21:09)
[2016-09-30] MEDS ORDERED: SOTALOL HCL 80 MG TAB PO ONE (11:04)
--- NOTE | 2016-09-30 11:35 | ECHOCARDIOGRAM REPORT ---
*NOTICE TO RECEIVING LIBERTARIAN AGENCY This information is strictly Confidential and protected under [place] law. [place] law prohibits you from making any further disclosure of this information unless further disclosure is expressly permitted by the written consent of the person to whom it pertains or is authorized by law. A general authorization for the release of medical or other information is not sufficient for this purpose. Hospital accepts no responsibility if the information is made available to any other person, INCLUDING THE PATIENT. Interpretation Summary * Name: FABRIZIO MENON Study Date: 09/29/2016 02:56 PM BP: 114/73 mmHg * Patient Location: C.2T\S\E221\S\1 HR: 101 * : 1965 (M/d/yyyy) Gender: Male Height: 72 in * Age: 50 yrs Ethnicity: CA Weight: 357 lb * Ordering Physician: Roselia Crain * Referring Physician: Self, Referred * Performed By: Ada Beavers RCS * * Reason For Study: A-FIB * BSA: 2.7 m2 * -- Conclusions -- * Normal LV chamber size with mild concentric LVH. * Normal LV systolic function, EF 55-60%. * No segmental left ventricular wall motion abnormalities are noted. * No significant valvular pathology. * Mild left atrial enlargement. Procedure Details * A complete two-dimensional transthoracic echocardiogram was performed (2D, M-mode, Doppler and color flow Doppler). * The study was technically difficult. * There were technical limitations due to patient'sbody habitus * A contrast injection of Definity was performed to improve assessment of LV function. * Contrast was injected into an intravenous site in the right arm. * One vial of Definity ultrasound contrast was diluted in normal saline to a total volume of 10 ml. A total of '2' ml of solution was administered during imaging. * Lot # [id number] of Definity utilized for procedure. * Expiration date SEP 02. * The attending nurse who injected the contrast agent was AAKASH MCCORMICK RN. Left Ventricle * The left ventricle is normal in size. * There is mild concentric left ventricular hypertrophy. * Ejection Fraction = 55-60%. * Left ventricular systolic function is normal. * No segmental left ventricular wall motion abnormalities are noted. * The left ventricular wall motion is normal. Right Ventricle * The right ventricular cavity size is normal (basal dimension <4.2 cm in right ventricular apical 4-chamber view). * The right ventricular systolic function is normal as assessed by tricuspid annular plane systolic excursion (TAPSE) (normal >1.5 cm). Atria * The left atrium is mildly dilated. * Right atrium not well visualized. * There is no evidence of atrial septal defect, but resolution does not allow assessment for a patent foramen ovale. Mitral Valve * The mitral valve is normal in structure and function. Tricuspid Valve * The tricuspid valve is normal in structure and function. Aortic Valve * The aortic valve is not well visualized. * No hemodynamically significant valvular aortic stenosis. * There is no significant aortic regurgitation. Pulmonic Valve * The pulmonary valve is not well seen, but the Doppler examination is normal without significant regurgitation or stenosis. Great Vessels * The aortic root and proximal ascending aorta are normal sized. Pericardium/Pleural * Pericardial fat pad present. * There is no pericardial effusion. MMode 2D Measurements and Calculations IVSd 1.7 cm IVSs 2.0 cm LVIDd 3.8 cm LVIDs 2.9 cm LVPWd 1.5 cm LVPWs 1.8 cm IVS/LVPW 1.2 FS 23.1 % EDV(Teich) 60.4 ml ESV(Teich) 32.0 ml EF(Teich) 47.0 % EDV(cubed) 53.1 ml ESV(cubed) 24.2 ml EF(cubed) 54.5 % % IVS thick 15.8 % % LVPW thick 20.1 % LV mass(C)d 244.7 grams LV mass(C)dI 89.8 grams/m\S\2 LV mass(C)s 234.9 grams LV mass(C)sI 86.2 grams/m\S\2 SV(Teich) 28.4 ml SI(Teich) 10.4 ml/m\S\2 SV(cubed) 28.9 ml SI(cubed) 10.6 ml/m\S\2 Ao root diam 4.0 cm Ao root area 12.6 cm\S\2 LA dimension 4.0 cm LA/Ao 0.99 LVOT diam 2.0 cm LVOT area 3.3 cm\S\2 LVAd ap4 27.0 cm\S\2 LVLd ap4 7.5 cm EDV(MOD-sp4) 79.8 ml EDV(sp4-el) 83.0 ml LVAs ap4 18.8 cm\S\2 LVLs ap4 7.1 cm ESV(MOD-sp4) 42.2 ml ESV(sp4-el) 41.9 ml EF(MOD-sp4) 47.1 % EF(sp4-el) 49.5 % SV(MOD-sp4) 37.6 ml SI(MOD-sp4) 13.8 ml/m\S\2 SV(sp4-el) 41.1 ml SI(sp4-el) 15.1 ml/m\S\2 Doppler Measurements and Calculations MV E max shailesh 91.1 cm/sec MV P1/2t max shailesh 138.9 cm/sec MV P1/2t 68.2 msec MVA(P1/2t) 3.2 cm\S\2 MV dec slope 596.7 cm/sec\S\2 MV dec time 0.24 sec Ao V2 max 160.1 cm/sec Ao max PG 10.3 mmHg Ao max PG (full) 5.4 mmHg TAD(V,A) 2.2 cm\S\2 TAD(V,D) 2.2 cm\S\2 AI max shailesh 353.1 cm/sec AI max PG 49.9 mmHg AI dec slope 138.7 cm/sec\S\2 AI P1/2t 745.8 msec LV V1 max PG 4.8 mmHg LV V1 max 109.7 cm/sec PA V2 max 89.5 cm/sec PA max PG 3.2 mmHg
--- NOTE | 2016-09-30 14:27 | CARDIOLOGY CONSULTATION ---
DATE OF CONSULTATION: 09/30/2016 CONSULTATION REQUESTED BY: Dr. Donald. REASON FOR CONSULTATION: New onset atrial fibrillation. HISTORY OF PRESENT ILLNESS: Mr. Bay is a very pleasant 50-year-old gentleman who presented to [facility] on 09/29/2016 with a complaint of fluttering sensation in his chest. The patient states he woke up yesterday in his normal state of health and then after going to work, he started noticing some fluttering in his chest. He was not overly exerting himself, just doing his normal work of lifting boxes when he felt his heart start to race faster and he was getting a little tired. He then walked across the room to go to the break room when he became significantly dyspneic. Evidently, his coworkers told him that he was very pale and frail in appearance and helped him to sit down. At that time, his overwhelming sensations were as palpitations and significant shortness of breath. Upon further questioning, he admits that he had a similar episode approximately 1 month ago, but that episode lasted only approximately 12 minutes. 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 Upon arrival, he was found to be in atrial fibrillation with rapid ventricular response. He was transported to [facility] Emergency Department. In the Emergency Department, he was given IV Cardizem with successful improvement of his rate response and he was admitted to telemetry. I started the patient on heparin anticoagulation. Currently, he is without complaint at rest and states he is feeling much better. He denies any further chest pain, shortness of breath, palpitations, lightheadedness, dizziness, or syncope. PAST SURGICAL HISTORY: 1. Colonoscopy. 2. Laparoscopic appendectomy. 3. Tonsillectomy. 4. Hernia repair. 5. Tympanostomy tube. MEDICAL ILLNESSES: 1. Dyslipidemia. 2. Hypertension. 3. Varicella. 4. Obesity. FAMILY HISTORY: Denies any premature coronary artery disease or sudden cardiac . SOCIAL HISTORY: Denies any alcohol, tobacco or recreational drug use. He does not drink any significant caffeine, but admits he does not drink much water during the day. He is not . No children. He lives by himself. He is currently employed at [employer]. REVIEW OF SYSTEMS: As per HPI, all other review of systems reviewed and negative at this time. ALLERGIES: ZOFRAN. MEDICATIONS AN OUTPATIENT: 1. Lisinopril 30 mg daily. 2. Lasix 20 mg p.r.n. fluid accumulation. 3. Aspirin 81 mg daily. PHYSICAL EXAMINATION: VITALS: Temperature 36.8, pulse 71, respiratory rate 12, and blood pressure 123/79. GENERAL: Awake, alert, and oriented x3, in no acute distress. HEENT: Normocephalic and atraumatic. Pupils equal, round, and reactive to light and accommodation. Extraocular muscles intact. Anicteric sclerae. Moist mucous membranes. NECK: No JVD. No bruit. CARDIOVASCULAR: Irregularly irregular. Unable to appreciate any murmurs, rubs or gallops. PULMONARY: Clear to auscultation bilaterally. No rales, rhonchi, or wheezing. ABDOMEN: Bowel sounds x4, soft. No rebound, guarding, or tenderness. No organomegaly. EXTREMITIES: No clubbing, cyanosis or edema. +2 pedal pulses bilaterally. SKIN: Warm and dry. TEST RESULTS: 2D echocardiogram performed on 09/30/2016 was read as normal LV chamber size with mild concentric LVH, normal LV systolic function, EF 55%-60%, no segmental left ventricle wall motion abnormalities were noted. No significant valvular pathology. Mild left atrial enlargement. IMPRESSION: 1. New onset atrial fibrillation with rapid ventricular response with a TIARA score of 1. 2. Hypertension. 3. Normal ventricular systolic function. RECOMMENDATIONS: It was my pleasure to see Mr. Bay in consultation today. The pathophysiology and treatment options were discussed with the patient at great lengths. After the pros and cons of rate versus rhythm control strategy were discussed with the patient at great lengths, the patient has elected to proceed with a MICHELLE-guided cardioversion along with sotalol loading. The patient has also elected for Coumadin anticoagulation over any novel oral anticoagulants. So, Coumadin will be started today at 10 mg daily. I will start sotalol 80 mg b.i.d., first dose now. Daily EKGs will be maintained and the patient will be followed on telemetry continuously for the next few days. The patient will be made n.p.o. after midnight and we will proceed with MICHELLE-guided cardioversion in the a.m.
[2016-09-30] MEDS: WARFARIN SOD 5 MG TAB PO SCH (16:32)
[2016-09-30] MEDS: CEFTRIAXONE SOD INJ 1 GM in DEXTROSE 5% ADD-VANTAGE 50ML 50 ML IV SCH (18:21)
[2016-09-30] MEDS ORDERED: NURSING VERBAL MED ORDER ONE (19:00)
[2016-09-30] MEDS: SOTALOL HCL 80 MG TAB PO SCH (21:10)
--- NOTE | 2016-09-30 21:52 | Progress Note ---
Medicine Progress Note Date & Time of Visit: September 30, 2016 at 21:46. Subjective converted to sinus rhythm, HR controlled resting in bed, comfortable , pleasant states he feels fine overall denies chest pain, dyspnea, dizziness, palpitations no bleeding no other symptoms Objective Last 8 Hrs Date Time Temp Pulse Resp B/P Pulse Ox O2 Delivery O2 Flow Rate FiO2 09/30/16 20:00 Room Air 09/30/16 19:57 36.9 69 16 116/74 97 Room Air 09/30/16 16:12 36.6 73 16 117/70 98 Room Air 09/30/16 16:00 Room Air Physical Exam: General- oriented x 3, not in distress, speaks in sentences with no effort Head- atraumatic Eyes- EOMI, anicteric ENT- oropharynx clear Neck- supple, no JVD, no adenopathy, no thyromegaly; no bruits appreciated Lungs- clear to auscultation b/l Heart- regular rhythm; no murmur, no gallop, normal rate Abdomen- normal bowel sounds, soft, nontender Extremities- no pretibial edema, no calf tenderness; peripheral pulses intact Neuro- alert, oriented x 3; no gross focal deficits Skin- warm & dry Laboratory Results: Last 24 Hours Test 09/29/16 23:10 09/30/16 02:10 09/30/16 06:20 Total Creatine Kinase 104 U/L Creatine Kinase MB 1.0 ng/ml Creatine Kinase MB Ratio 1.0 Troponin I < 0.015 ng/ml Activated Partial Thromboplast Time 69.0 SECONDS Partial Thromboplastin Ratio 2.7 White Blood Count 5.30 K/uL Red Blood Count 4.08 M/uL Hemoglobin 13.9 g/dL Hematocrit 41.7 % Mean Corpuscular Volume 102.2 fL Mean Corpuscular Hemoglobin 34.1 pg Mean Corpuscular Hemoglobin Concent 33.3 g/dl RDW Standard Deviation 47.2 fL RDW Coefficient of Variation 12.7 % Platelet Count 208 K/uL Mean Platelet Volume 9.1 fL Sodium Level 140 mmol/L Potassium Level 4.6 mmol/L Chloride Level 107 mmol/L Carbon Dioxide Level 27 mmol/L Anion Gap 6.0 mmol/L Blood Urea Nitrogen 16 mg/dl Creatinine 1.00 mg/dl Est Creatinine Clear Calc Drug Dose 138.7 ml/min Estimated GFR () 101.3 Estimated GFR (Non- 87.4 BUN/Creatinine Ratio 16.5 Random Glucose 106 mg/dl Calcium Level 9.0 mg/dl Magnesium Level 2.3 mg/dl Triglycerides Level 105 mg/dl Cholesterol Level 166 mg/dl HDL Cholesterol 40 mg/dl LDL Cholesterol, Calculated 105 mg/dl VLDL Cholesterol, Calculated 21 mg/dl Cholesterol/HDL Ratio 4.2 Chemistry Specimen Hemolysis Assessment & Plan NEW ONSET ATRIAL FIBRILLATION WITH RVR Rate up to 140s in ER -> improved to 90s with Cardizem bolus and drip - placed on Cardizem IV then po and Sotalol also started on Heparin + Coumadin - converted to Sinus Rhythm this evening NPO for possible MICHELLE/Cardioversion in AM in case he reverts back to A fib POSSIBLE UTI HISTORY OF [facility] - ff up urine cultures - on Ceftriaxone IV HYPERTENSION usual Lisinopril and Lasix on hold DYSLIPIDEMIA lipid panel ordered [facility] S/p 2 recent lithotripsy procedures, planned for 3rd procedure on 10/01- patient aware it will need to be postponed Continue Flomax and Azo F/u with urology as outpatient LYMPHEDEMA Hold Lasix for now DVT PROPHYLAXIS Heparin drip + coumadin FULL CODE DISPOSITION pending anticipate d/c home when cleared by cardiology may need lovenox bridge with coumadin on discharge will need to be established with Coumadin Clinic PCP and Cardiology ff up Current Inpatient Medications: Current Inpatient Medications Medications (Trade) Dose Ordered Sig/Cleo Route Start Time Stop Time Status Last Admin Dose Admin Acetaminophen (Tylenol Tab) 650 mg Q4H PRN PO 09/29/16 14:00 10/29/16 13:59 Ondansetron HCl (Zofran Inj) 4 mg Q6H PRN IV 09/29/16 14:00 10/29/16 13:59 Miscellaneous (Iv Fluids Completed) 1 ea PRN PRN N/A 09/29/16 14:00 09/29/17 13:59 Aspirin (Ecotrin Tab) 81 mg QAM PO 09/30/16 09:00 10/30/16 08:59 09/30/16 07:33 81 MG Tamsulosin HCl (Flomax Cap) 0.4 mg DAILY PO 09/30/16 09:00 10/30/16 08:59 09/30/16 07:34 0.4 MG Miscellaneous Information (Order Awaiting Action) 1 ea QS N/A 09/29/16 16:00 10/29/16 15:59 Miscellaneous 1 ea 1 ea PRN PRN N/A 09/29/16 15:45 09/29/17 15:44 Ceftriaxone Sodium 1 gm/ Dextrose 50 ml @ 100 mls/hr Q24H IV 09/29/16 18:00 10/09/16 17:29 09/30/16 18:21 100 MLS/HR Heparin Sodium/ Dextrose (Heparin 25,000 Unit/500ml D5W) 500 ml @ 41 mls/hr [id number] PRN IV 09/29/16 19:45 10/29/16 19:44 09/30/16 21:09 41 MLS/HR Lisinopril (Zestril Tab) 30 mg Q2D@0900 PO 10/01/16 09:00 10/31/16 08:59 Sotalol HCl (Betapace Tab) 80 mg BID PO 09/30/16 21:00 10/30/16 20:59 09/30/16 21:10 80 MG Warfarin Sodium (Coumadin Tab) 10 mg DAILY@16 PO 09/30/16 16:00 10/30/16 15:59 09/30/16 16:32 10 MG
[2016-10-01] VITALS (10 sets, daily range): BP systolic 94–120; BP diastolic 58–74; PULSE 66–106; TEMP 36.4–37; O2SAT 95–98
[2016-10-01 05:26] LABS: HEMATOCRIT 41.3 % (42-52); MEAN CELL VOLUME 102.2 fL (80-100); MEAN CORPUSCULAR HEMOGLOBIN 35.1 pg (25-34); MEAN PLATELET VOLUME 9.3 fL (7.4-10.4); PLATELET COUNT 196 K/uL (130-400); RED BLOOD COUNT 4.04 M/uL (4.7-6.1); WHITE BLOOD COUNT 5.42 K/uL (4.8-10.8)
[2016-10-01 05:32] LABS: MEAN CORPUSCULAR HGB CONC 34.4 g/dl (32-36)
[2016-10-01 05:43] LABS: PARTIAL THROMBOPLASTIN RATIO 2.1; PROTHROMBIN TIME (PATIENT) 10.7 SECONDS (9.0-12.0)
[2016-10-01 05:51] LABS: BUN/CREATININE RATIO 15.5 (10-20); CALCIUM 8.6 mg/dl (8.5-10.1); CREATININE 1.1 mg/dl (0.60-1.40); POTASSIUM 4.4 mmol/L (3.5-5.1)
[2016-10-01] MEDS: SOTALOL HCL 80 MG TAB PO SCH ×2 (07:06→21:26)
[2016-10-01] MEDS: ASPIRIN 81 MG ECTAB PO SCH (07:07)
[2016-10-01] MEDS: TAMSULOSIN HCL 0.4 MG CAP PO SCH (07:08)
[2016-10-01] MEDS ORDERED: LISINOPRIL 20 MG TAB PO SCH (09:00)
[2016-10-01] MEDS: HEPARIN 25,000 UNIT/500ML D5W 500 ML IV PRN ×2 (09:57→22:12)
--- NOTE | 2016-10-01 11:11 | Cardiology Follow-Up ---
Subjective Subjective Date of Service: October 01, 2016. Pt evaluation today including: conversation w/ patient, physical exam, chart review, lab review, review of studies, review of inpatient medication list Additional Details: Pt seen and examined, states that he feels great. Denies cp, sob, palpitations, lightheadedness or dizziness Tele reviewed: spontaneously converted to sinus rhythm last PM, no further arrhythmias or significant ectopy EKG: sinus rhythm QTc of 431 ms. Problem List Medical Problems: (1) Acute appendicitis with rupture Status: Acute (2) Atrial fibrillation with rapid ventricular response Status: Acute Review of Systems Respiratory: No cough, No dyspnea at rest, No dyspnea on exertion, No hemoptysis, No problem reported, No see HPI, No shortness of breath, No sputum, No wheezing Cardiac: No PND, No chest pain, No claudication, No edema, No orthopnea, No palpitations, No problem reported, No see HPI Objective Vital Signs Last Vital Signs Documentation Date Time Temp Pulse Resp B/P Pulse Ox O2 Delivery O2 Flow Rate FiO2 10/01/16 08:00 96 Room Air 10/01/16 07:20 36.9 73 18 114/74 Physical Exam: General Appearance: WD/WN, no apparent distress Eyes: bilateral eyes EOMI, bilateral eyes PERRL, bilateral eyes normal inspection ENT: normal ENT inspection, hearing grossly normal, pharynx normal Neck: supple, no adenopathy, thyroid normal, no JVD, no carotid bruits, trachea midline Respiratory/Chest: lungs clear, normal breath sounds, no respiratory distress, no accessory muscle use Cardiovascular: regular rate, rhythm, no edema, no JVD, no murmur, + gallop/S4 Abdomen: normal bowel sounds, non tender, soft, no organomegaly Extremities: non-tender, normal inspection, no pedal edema, no calf tenderness , + pedal edema Neurologic/Psychiatric: director safety II-XII nml as tested, no motor/sensory deficits, alert, normal mood/affect, oriented x 3 Skin: normal color, warm/dry, no rash Lymphatic: no adenopathy Assessment and Plan 1. atrial fibrillation new onset spontaneously converted to sinus MICHELLE/CV obviously canceled tolerating sotalol well, QTc stable will cont heparin bridge along with coumadin, goal INR of 2-3 CHADS2 score of 1, will anticoagulate for at least 1 month daily ECG to monitor QTc on sotalol load cont to monitor on tele sotalol dose should not be held unless directed by cardiology
[2016-10-01] MEDS: WARFARIN SOD 5 MG TAB PO SCH (16:44)
[2016-10-01] MEDS: CEFTRIAXONE SOD INJ 1 GM in DEXTROSE 5% ADD-VANTAGE 50ML 50 ML IV SCH (17:33)
--- NOTE | 2016-10-01 22:52 | Progress Note ---
Internal Med Progress Note Date of Service: October 01, 2016. Provider Documentation: SUBJECTIVE: denies of any chest pain or SOB ' remains in sinus rhythm in monitor OBJECTIVE: Vital Signs-as noted below Exam: General-no sign of distress Eyes-sclera non icteric ENT-NAd Neck-no JVD , no thyromegaly Lungs-CTA, no wheeze or rales Heart-regular S1/S2 Abdomen-soft, non tender, bowel sound active Extremities-no edema, no rash or deformity Neuro-AAO x3,no focal deficit Lab data as noted below. ASSESSMENT & PLAN: AFIB RVR ; new diagnosis , converted to sinus spontaneously stated on Sotalol load calculated CHAD2 score ~1 on IV heparin /started on Coumadin no evidence of ACS , no complain of chest pain ECHO :no wall motion abnormality appreciate input from Cardiology pt will remain in Tele while getting Sotalol Daily EKG monitoring to assess Qtc prolongation will be discharged home with Coumadin need to establish care with Coumadin clinic Cardiology follow up as out patient [facility] S/p 2 recent lithotripsy procedures, planned for 3rd procedure on 10/01- patient aware it will need to be postponed as pt will be on Coumadin urine culture -no growth D/C Rocephin Continue Flomax and Azo F/u with urology as outpatient DVT PROPHYLAXIS IV heparin /Coumadin DISPOSITION Discharge home when medically stable Vital Signs: Date Time Temp Pulse Resp B/P Pulse Ox O2 Delivery O2 Flow Rate FiO2 10/02/16 18:02 36.9 65 18 99 Room Air 10/02/16 16:00 Room Air 10/02/16 15:25 36.9 65 18 143/75 99 Room Air 10/02/16 12:00 Room Air 10/02/16 11:41 37.2 62 18 124/73 97 Room Air 10/02/16 08:00 Room Air 10/02/16 07:49 37.1 67 18 123/83 97 Room Air 10/02/16 04:00 94 Room Air 10/02/16 03:07 36.5 70 17 107/69 94 Room Air 10/02/16 00:01 97 Room Air 10/01/16 23:29 36.4 68 21 98/61 97 Room Air 10/01/16 20:00 98 Room Air Lab Results: Results Past 24 Hours Test 10/02/16 04:40 10/02/16 04:44 Range/Units Prothrombin Time 11.1 9.0-12.0 SECONDS Prothromb Time International Ratio 1.0 0.9-1.1 Activated Partial Thromboplast Time 60.4 21.0-31.0 SECONDS Partial Thromboplastin Ratio 2.3 White Blood Count 6.07 4.8-10.8 K/uL Red Blood Count 4.06 4.7-6.1 M/uL Hemoglobin 14.1 14.0-18.0 g/dL Hematocrit 40.8 42-52 % Mean Corpuscular Volume 100.5 80-100 fL Mean Corpuscular Hemoglobin 34.7 25-34 pg Mean Corpuscular Hemoglobin Concent 34.6 32-36 g/dl RDW Standard Deviation 45.8 36.4-46.3 fL RDW Coefficient of Variation 12.4 11.5-14.5 % Platelet Count 201 130-400 K/uL Mean Platelet Volume 9.1 7.4-10.4 fL Sodium Level 140 136-145 mmol/L Potassium Level 4.4 3.5-5.1 mmol/L Chloride Level 106 98-107 mmol/L Carbon Dioxide Level 29 21-32 mmol/L Anion Gap 5.0 3-11 mmol/L Blood Urea Nitrogen 19 7-18 mg/dl Creatinine 1.10 0.60-1.40 mg/dl Est Creatinine Clear Calc Drug Dose 124.6 ml/min Estimated GFR () 90.2 Estimated GFR (Non- 77.9 BUN/Creatinine Ratio 17.5 10-20 Random Glucose 96 70-99 mg/dl Calcium Level 8.5 8.5-10.1 mg/dl
[2016-10-02] VITALS (7 sets, daily range): BP systolic 107–143; BP diastolic 69–83; PULSE 62–70; TEMP 36.5–37.2; O2SAT 94–99
[2016-10-02 04:48] LABS: HEMATOCRIT 40.8 % (42-52); MEAN CELL VOLUME 100.5 fL (80-100); MEAN CORPUSCULAR HEMOGLOBIN 34.7 pg (25-34); MEAN CORPUSCULAR HGB CONC 34.6 g/dl (32-36); MEAN PLATELET VOLUME 9.1 fL (7.4-10.4); PLATELET COUNT 201 K/uL (130-400); RED BLOOD COUNT 4.06 M/uL (4.7-6.1); WHITE BLOOD COUNT 6.07 K/uL (4.8-10.8)
[2016-10-02 05:04] LABS: PARTIAL THROMBOPLASTIN RATIO 2.3; PROTHROMBIN TIME (PATIENT) 11.1 SECONDS (9.0-12.0)
[2016-10-02 05:07] LABS: BUN/CREATININE RATIO 17.5 (10-20); CALCIUM 8.5 mg/dl (8.5-10.1); CREATININE 1.1 mg/dl (0.60-1.40); POTASSIUM 4.4 mmol/L (3.5-5.1)
[2016-10-02] MEDS: ASPIRIN 81 MG ECTAB PO SCH (08:05)
[2016-10-02] MEDS: TAMSULOSIN HCL 0.4 MG CAP PO SCH (08:05)
[2016-10-02] MEDS: SOTALOL HCL 80 MG TAB PO SCH (08:05)
[2016-10-02] MEDS ORDERED: SODIUM CHLORIDE 0.9% 1000ML 1,000 ML IV SCH (08:15)
--- NOTE | 2016-10-02 09:10 | Cardiology Follow-Up ---
Subjective Subjective Date of Service: October 02, 2016. Pt evaluation today including: conversation w/ patient, physical exam, chart review, lab review, review of studies, review of inpatient medication list Additional Details: Pt seen and examined, states that he continues to feel great. Denies cp, sob, palpitations, lightheadedness or dizziness. Tele reviewed: sinus rhythm without arrhythmia or significant ectopy EKG: sinus rhythm QTc of 415 ms. Problem List Medical Problems: (1) Acute appendicitis with rupture Status: Acute (2) Atrial fibrillation with rapid ventricular response Status: Acute Review of Systems Respiratory: No cough, No dyspnea at rest, No dyspnea on exertion, No hemoptysis, No problem reported, No see HPI, No shortness of breath, No sputum, No wheezing Cardiac: No PND, No chest pain, No claudication, No edema, No orthopnea, No palpitations, No problem reported, No see HPI Objective Vital Signs Last Vital Signs Documentation Date Time Temp Pulse Resp B/P Pulse Ox O2 Delivery O2 Flow Rate FiO2 10/02/16 07:49 37.1 67 18 123/83 97 Room Air Physical Exam: General Appearance: WD/WN, no apparent distress Eyes: bilateral eyes EOMI, bilateral eyes PERRL, bilateral eyes normal inspection ENT: normal ENT inspection, hearing grossly normal, pharynx normal Neck: supple, no adenopathy, thyroid normal, no JVD, no carotid bruits, trachea midline Respiratory/Chest: lungs clear, normal breath sounds, no respiratory distress, no accessory muscle use Cardiovascular: regular rate, rhythm, no edema, no JVD, no murmur, + gallop/S4 Abdomen: normal bowel sounds, non tender, soft, no organomegaly Extremities: non-tender, normal inspection, no pedal edema, no calf tenderness , + pedal edema Neurologic/Psychiatric: air vice marshal II-XII nml as tested, no motor/sensory deficits, alert, normal mood/affect, oriented x 3 Skin: normal color, warm/dry, no rash Lymphatic: no adenopathy Assessment and Plan 1. atrial fibrillation new onset spontaneously converted to sinus MICHELLE/CV obviously canceled tolerating sotalol well, QTc actually decreasing cont heparin and coumadin since converted to since do not need to bridge, ok to d/c to home with INR <2 will need to be scheduled with outpatient coumadin clinic CHADS2 score of 1, will anticoagulate for at least 1 month since no arrhythmias and QTc actually shortening will give 6th dose at 1600 check ECG at 1700 as long as no significant abnormality will d/c to home this evening my office will arrange f/u with me in 1 month
[2016-10-02] MEDS ORDERED: SOTALOL HCL 80 MG TAB PO ONE ×2 (14:00→16:00)
[2016-10-02] MEDS: WARFARIN SOD 5 MG TAB PO SCH (16:08)
[2016-10-02] MEDS ORDERED: BTP80 PO (17:45)
--- NOTE | 2016-10-02 17:48 | Discharge Instructions ---
Discharge Instructions Date of Service October 02, 2016. Admission Reason for Admission: Atrial Fibrillation Discharge Discharge Diagnosis / Problem: ATRIAL FIBRILLATION Discharge Goals Goal(s): Decrease discomfort, Increase independence, Diagnostic testing Activity Recommendations Activity Limitations: resume your previous activity . Instructions / Follow-Up Instructions / Follow-Up HOSPITAL FOLLOW UP ON 10/06/2016 @ 1:[address] Tobi Murray MD Family Practice, [place] CARDIOLOGY FOLLOW UP ON @ 3:[address] Oscar Monzon Jr., DO Cardiology, [facility] NEED TO FOLLOW UP WITH COUMADIN CLINIC AT [facility] FOR MONITORING OF BLOOD WORK/PT/INR PERIODICALLY AND ADJUSTMENT OF COUMADIN DOSE APPOINTMENT SCHEDULED WITH COUMADIN CLINIC FOR TOMORROW Thursday10/03/2016 @ 6 :15 PM [facility] [place] [facility], [facility] Diet Patient's current hospital diet: AHA Diet (Heart Healthy) Discharge Diet Recommended Diet: AHA Diet (Heart Healthy) Pending Studies Studies pending at discharge: yes List of pending studies: LAB WORK : PT/INR ON THRUS10/03/16 Laboratory Results Lipid Panel Test 09/30/16 06:20 Range/Units Triglycerides Level 105 0-150 mg/dl Cholesterol Level 166 0-200 mg/dl HDL Cholesterol 40 mg/dl Cholesterol/HDL Ratio 4.2 LDL Cholesterol, Calculated 105 mg/dl Medical Emergencies . Who to Call and When: Medical Emergencies: If at any time you feel your situation is an emergency, please call 911 immediately. . Non-Emergent Contact Non-Emergency issues call your: Primary Care Provider . . "Provider Documentation" section prepared by Catalina Topete. . VTE Core Measure Inpt VTE Proph given/why not?: Warfarin (Coumadin), Other Anticoagulation ( heparin) [place] Drug Monitoring Program Search Results: no issues identified
[2016-10-02] MEDS ORDERED: CMD5 PO (17:49)
--- NOTE | 2016-10-02 19:43 | Progress Note ---
Internal Med Progress Note Date of Service: October 02, 2016. Provider Documentation: SUBJECTIVE: remains asymptomatic no complain of chest pain or SOB , no [place] feels fine remains in sinus rhythm evaluated by Cardiology this Am stable to be discharged home OBJECTIVE: Vital Signs-as noted below Exam: General-no sign of distress Eyes-sclera non icteric ENT-NAd Neck-no JVD , no thyromegaly Lungs-CTA, no wheeze or rales Heart-regular S1/S2 Abdomen-soft, non tender, bowel sound active Extremities-no edema, no rash or deformity Neuro-AAO x3,no focal deficit Lab data as noted below. ASSESSMENT & PLAN: AFIB RVR ; new diagnosis , converted to sinus spontaneously stated on Sotalol load , Qtc remains stable calculated CHAD2 score with spontaneous conversion to sinus ~1 need at least 1 months of anticoagulation on IV heparin /started on Coumadin ;does not need bridge anticoagulation tx oK to discharge home with Coumadin no evidence of ACS , no complain of chest pain ECHO :no wall motion abnormality appreciate input from Cardiology EKG today shows Qtc 412 stable to be be discharged home with Coumadin follow up with Coumadin clinic tomorrow 10/03/16 for PT/INR check and establish care Cardiology follow up as out patient on 11/03/16 [facility] S/p 2 recent lithotripsy procedures, planned for 3rd procedure on 10/01- patient aware it will need to be postponed as pt will be on Coumadin urine culture -no growth D/C Rocephin Continue Flomax and Azo F/u with urology as outpatient HTN : BP remains stable cont Lisinopril DVT PROPHYLAXIS Coumadin DISPOSITION Discharge home today Vital Signs: Date Time Temp Pulse Resp B/P Pulse Ox O2 Delivery O2 Flow Rate FiO2 10/02/16 18:02 36.9 65 18 99 Room Air 10/02/16 16:00 Room Air 10/02/16 15:25 36.9 65 18 143/75 99 Room Air 10/02/16 12:00 Room Air 10/02/16 11:41 37.2 62 18 124/73 97 Room Air 10/02/16 08:00 Room Air 10/02/16 07:49 37.1 67 18 123/83 97 Room Air 10/02/16 04:00 94 Room Air 10/02/16 03:07 36.5 70 17 107/69 94 Room Air 10/02/16 00:01 97 Room Air 10/01/16 23:29 36.4 68 21 98/61 97 Room Air 10/01/16 20:00 98 Room Air Lab Results: Results Past 24 Hours Test 10/02/16 04:40 10/02/16 04:44 Range/Units Prothrombin Time 11.1 9.0-12.0 SECONDS Prothromb Time International Ratio 1.0 0.9-1.1 Activated Partial Thromboplast Time 60.4 21.0-31.0 SECONDS Partial Thromboplastin Ratio 2.3 White Blood Count 6.07 4.8-10.8 K/uL Red Blood Count 4.06 4.7-6.1 M/uL Hemoglobin 14.1 14.0-18.0 g/dL Hematocrit 40.8 42-52 % Mean Corpuscular Volume 100.5 80-100 fL Mean Corpuscular Hemoglobin 34.7 25-34 pg Mean Corpuscular Hemoglobin Concent 34.6 32-36 g/dl RDW Standard Deviation 45.8 36.4-46.3 fL RDW Coefficient of Variation 12.4 11.5-14.5 % Platelet Count 201 130-400 K/uL Mean Platelet Volume 9.1 7.4-10.4 fL Sodium Level 140 136-145 mmol/L Potassium Level 4.4 3.5-5.1 mmol/L Chloride Level 106 98-107 mmol/L Carbon Dioxide Level 29 21-32 mmol/L Anion Gap 5.0 3-11 mmol/L Blood Urea Nitrogen 19 7-18 mg/dl Creatinine 1.10 0.60-1.40 mg/dl Est Creatinine Clear Calc Drug Dose 124.6 ml/min Estimated GFR () 90.2 Estimated GFR (Non- 77.9 BUN/Creatinine Ratio 17.5 10-20 Random Glucose 96 70-99 mg/dl Calcium Level 8.5 8.5-10.1 mg/dl
--- NOTE | 2016-10-02 19:45 | Discharge Summary ---
Discharge Summary Date of Service October 02, 2016. Discharge Summary Admission Date: September 29, 2016 at 14:02 Discharge Date: October 02, 2016 Discharge Disposition: Home Principal Diagnosis: ATRIAL FIBRILLATION Procedures: ECHO : Normal LV chamber size with mild concentric LVH. Normal LV systolic function, EF 55-60%. No segmental left ventricular wall motion abnormalities are noted. No significant valvular pathology. Mild left atrial enlargement. Consultations: [facility] DR GARCIA Medication Reconciliation New Medications: Sotalol HCl (Sotalol HCl) 80 Mg Tab 80 MG PO BID for 30 Days, #60 TAB 2 Refills Warfarin Sod (Coumadin) 5 Mg Tab 10 MG PO DAILY@16 for 30 Days, #60 TAB Continued Medications: Aspirin (Aspirin Ec) 81 Mg Tab 81 MG PO QAM Furosemide (Lasix) 20 Mg Tab 20 MG PO UD, TAB 20 mg by mouth twice a day for 3 days then off for 3 days. Lisinopril (Zestril) 30 Mg Tab 30 MG PO Q2D, TAB Phenazopyridine Hcl (Azo Tabs) 95 Mg Tab 190 MG PO DAILY Tamsulosin Hcl (Flomax) 0.4 Mg Cap 0.4 MG PO DAILY, CAP Referrals At Discharge Follow up Referrals: Roofing Machine Tender Referral - 11/03/16 with Oscar Garcia D.O. Physician Referral - 10/06/16 with Rohan Murray M.D. (MEDICAL) Admission Information HPI (per Admitting provider): This is a 50 year old male with PMH of hypertension, dyslipidemia, obesity, and other problems listed below who presents to the ED with fluttering in chest. Patient states he was in his usual state of health until 9 am this morning while working at [employer] he developed fluttering in his chest. His work involved lifting boxes 40 lb or less which he typically does with no issues. While walking to break room he developed associated SOB, dull discomfort in left chest which was nonradiating, diaphoresis, lightheadedness. He improved with rest but fluttering and SOB returned when he was walking back to the work area. 911 was called and EMS found patient to be in atrial fibrillation. In the ER rate was up to 140s with EKG showing Afib. Patient was started on Cardizem bolus and drip with improvement of rate to 90s-100. Patient is now feeling asymptomatic. Patient states he has a staghorn renal calculus and has undergone 2 of [address] Mckeon with the next planned for 10/01/16. He has urinary frequency while on Flomax and has been passing stone pieces. He does not believe he has had any UTI's. He reports chronic BLLE edema which increases throughout the day and resolves with elevation of the legs. He denies prior exertional chest pain or SOB. He denies fever, chills, weight gain, focal neurological symptoms, URI symptoms, cough, N/V/D, dysuria, hematuria, calf pain , abnormal bleeding. Patient denies prior dx of AF. He reports having a similar episode of fluttering a few months ago lasting 15 minutes. No history of DM, stroke, TIA. No known hx of valvular disease or CHF. Has not had echo or stress test in the past. Physical Exam (per Admitting): General Appearance: no apparent distress, + obese, + pertinent finding ( pleasant alert 50 y/o male, not in distress) Head: normocephalic, atraumatic Eyes: normal inspection, PERRL, EOMI ENT: hearing grossly normal, pharynx normal Neck: supple, trachea midline Respiratory/Chest: lungs clear, normal breath sounds, no respiratory distress Cardiovascular: no murmur, + irregularly irregular (rate 90-100) Abdomen/GI: normal bowel sounds, non tender, soft Extremities/Musculoskelatal: no calf tenderness, normal capillary refill, + pertinent finding (trace pretibial edema bilaterally) Neurologic/Psych: alert, normal mood/affect, oriented x 3, + pertinent finding (no focal deficit on gross examination) Skin: normal color, warm/dry Hospital Course AFIB RVR ; new diagnosis , converted to sinus spontaneously stated on Sotalol load , Qtc remains stable calculated CHAD2 score with spontaneous conversion to sinus ~1 need at least 1 months of anticoagulation on IV heparin /started on Coumadin ;does not need bridge anticoagulation tx oK to discharge home with Coumadin no evidence of ACS , no complain of chest pain ECHO :no wall motion abnormality appreciate input from Cardiology EKG today shows Qtc 412 stable to be be discharged home with Coumadin follow up with Coumadin clinic tomorrow 10/03/16 for PT/INR check and establish care Cardiology follow up as out patient on 11/03/16 STAGHORN CALCULUS S/p 2 recent lithotripsy procedures, planned for 3rd procedure on 10/01- patient aware it will need to be postponed as pt will be on Coumadin urine culture -no growth D/C Rocephin Continue Flomax and Azo F/u with urology as outpatient HTN : BP remains stable cont Lisinopril DVT PROPHYLAXIS Coumadin DISPOSITION Discharge home today Total time spent on discharge = 40 MINS This includes examination of the patient, discharge planning, medication reconciliation, and communication with other providers. Discharge Instructions DI: Medical v4 Discharge Instructions Date of Service October 02, 2016. Admission Reason for Admission: Atrial Fibrillation Discharge Discharge Diagnosis / Problem: ATRIAL FIBRILLATION Discharge Goals Goal(s): Decrease discomfort, Increase independence, Diagnostic testing Activity Recommendations Activity Limitations: resume your previous activity . Instructions / Follow-Up Instructions / Follow-Up HOSPITAL FOLLOW UP ON 10/06/2016 @ 1:[address] Tobi Murray MD [facility] CARDIOLOGY FOLLOW UP ON @ 3:[address] Oscar Garcia Jr., Cardiology, [facility] NEED TO FOLLOW UP WITH COUMADIN CLINIC AT [facility] FOR MONITORING OF BLOOD WORK/PT/INR PERIODICALLY AND ADJUSTMENT OF COUMADIN DOSE APPOINTMENT SCHEDULED WITH COUMADIN CLINIC FOR TOMORROW Thursday10/03/2016 @ 6 :15 PM [facility], [facility] Diet Patient's current hospital diet: AHA Diet (Heart Healthy) Discharge Diet Recommended Diet: AHA Diet (Heart Healthy) Pending Studies Studies pending at discharge: yes List of pending studies: LAB WORK : PT/INR ON THRUS10/03/16 Laboratory Results Lipid Panel Test 09/30/16 06:20 Range/Units Triglycerides Level 105 0-150 mg/dl Cholesterol Level 166 0-200 mg/dl HDL Cholesterol 40 mg/dl Cholesterol/HDL Ratio 4.2 LDL Cholesterol, Calculated 105 mg/dl Medical Emergencies . Who to Call and When: Medical Emergencies: If at any time you feel your situation is an emergency, please call 911 immediately. . Non-Emergent Contact Non-Emergency issues call your: Primary Care Provider . . "Provider Documentation" section prepared by Catalina Topete. . VTE Core Measure Inpt VTE Proph given/why not?: Warfarin (Coumadin), Other Anticoagulation ( heparin) [place] Drug Monitoring Program Search Results: no issues identified Additional Copies To Rohan Murray M.D. (MEDICAL) Oscar Garcia D.O.
[2016-10-20] MEDS ORDERED: SOTA80TA PO (15:40)
[2016-10-22] MEDS ORDERED: PHEN-775 PO (13:36)
[2016-10-22] MEDS ORDERED: OXYC-57 PO (13:36)
[2016-11-05] MEDS ORDERED: OXYC-57 PO (10:50)
[2016-11-05] MEDS ORDERED: PHEN-775 PO (10:50)
== END 2016-10-02 19:40 | disposition home or self-care (01) | DRG 309 ==
LOC: ENRESERVTM → ENRESERVDT → EDBD 10:55 → C.EDC 10:57 → C.2T 14:02
PROVIDERS: ADMIT Hospitalist; ATTEND Hospitalist
DX: I48.91 Unspecified atrial fibrillation (principal); Z68.42 Body mass index [BMI] 45.0-49.9, adult; I10 Essential (primary) hypertension; E78.5 Hyperlipidemia, unspecified; E66.01 Morbid (severe) obesity due to excess calories; N20.0 Calculus of kidney; Z79.82 Long term (current) use of aspirin; Z79.899 Other long term (current) drug therapy; Z90.49 Acquired absence of other specified parts of digestive tract; Z82.49 Family history of ischemic heart disease and other diseases of the circulatory system

== ENCOUNTER 2016-10-22 08:46 | Day surgery (SDC) | payer BC ==
[2016-10-20 15:41] VITALS: BMI 49.0
[~2016-10-22] VITALS: Ht 182.9 cm; Wt 162.7 kg
[~2016-10-22 08:46] MED LIST changes: +ASPI81TA28 PO; +ATROPINE SULFATE 0.1 MG/ML 5ML SYR IV PRN; +EpHEDrine SULFATE INJ 50 MG/ML AMP IV PRN; +FENTANYL CITRATE INJ 50 MCG/1 ML 2 ML VIAL IV PRN; +FURO20TA PO; +LACTATED RINGER'S 1000ML 1,000 ML IV SCH; +LISI1TAB3 PO; -OXYC-57 PO; +SOTA80TA PO; -TAMS0.4C38 PO
[2016-10-22 09:26] VITALS: BP 140/72; PULSE 62; TEMP 36.8; O2SAT 98; Ht 182.9 cm; Wt 162.7 kg
[2016-10-22 09:47] LABS: PARTIAL THROMBOPLASTIN RATIO 1.1; PROTHROMBIN TIME (PATIENT) 10.2 SECONDS (9.0-12.0)
[2016-10-22] MEDS ORDERED: LIDOCAINE HCL 2% 2 ML VIAL (20MG/ML) ONE (09:53)
[2016-10-22] MEDS ORDERED: PROPOFOL IV EMULSION 10 MG/ML 20 ML VIAL IV ONE (09:53)
[2016-10-22] MEDS ORDERED: ROCURONIUM BROMIDE 10 MG/ML 5 ML VIAL ONE ×2 (09:53→11:37)
[2016-10-22] MEDS ORDERED: NEOSTIGMINE METHYLSULFATE 5 MG/5 ML SYR ONE (09:53)
[2016-10-22] MEDS ORDERED: FENTANYL CITRATE INJ 50 MCG/1 ML 2 ML VIAL ONE (09:53)
[2016-10-22] MEDS ORDERED: ONDANSETRON INJ 2 MG/ML 2 ML VIAL ONE (09:53)
[2016-10-22] MEDS ORDERED: GLYCOPYRROLATE INJ 0.2 MG/ML VIAL ONE (09:53)
[2016-10-22] MEDS ORDERED: MIDAZOLAM HCL 1 MG/ML 2ML VIAL ONE (09:53)
[2016-10-22] MEDS ORDERED: CEFAZOLIN 3000 MG/65 ML D5W IV SCH (10:00)
--- NOTE | 2016-10-22 10:52 | History and Physical ---
History Date of Service: Oct 22, 2016. Chief Complaint: large right kidney stone Primary Care Physician: Rohan Murray M.D. (MEDICAL) Pt seen a urologist before?: Yes If yes, why?: kidney stone History of Present Illness Patient presents for 3rd session of treating a large right kidney stone. Since last session he had a episode of a fib with rvr and was hospitalized. he is back in sinus rhythm and off coumadin. Laboratory Labs were reviewed and are within normal limits unless listed below. Labs are available in the chart and at [facility] Problem List Medical Problems: (1) Acute appendicitis with rupture Status: Acute (2) Atrial fibrillation with rapid ventricular response Status: Acute Past History Past Medical History: A Fib, hypertension, kidney stones, renal disease, other Past Surgical History: appendectomy, tonsillectomy, other (umbilical hernia repair) Family History Stroke FATHER Valvular heart disease MOTHER Social History Hx Tobacco Use In Past Year?: No Smoking: non-smoker Alcohol: socially Marital status: Occupation status: employed Allergies Coded Allergies: No Known Allergies (Unverified , 10/22/16) Medications Home Medications: Home Meds and Scripts Medications Dose Route/Sig Max Daily Dose Days Date Category Dose Instructions Sotalol Hcl 80 Mg Tab 1 Tab PO BID 90 10/20/16 Reported Lasix (Furosemide) 20 Mg Tab 20 Mg PO UD 09/29/16 Reported 20 mg by mouth twice a day for 3 days then off for 3 days. Zestril (Lisinopril) 30 Mg Tab 30 Mg PO Q2D 06/25/16 Reported AM Aspirin Ec (Aspirin) 81 Mg Tab 81 Mg PO QAM 01/01/16 Reported PER PT- WAS INSTRUCTED TO CONTINUE TAKING Inpatient Medications: Current Inpatient Medications Medications (Trade) Dose Ordered Sig/Cleo Route Start Time Stop Time Status Last Admin Dose Admin Lactated Ringer's 1,000 ml @ 15 mls/hr Q24H IV 10/22/16 06:00 10/23/16 05:59 Fentanyl Citrate (Fentanyl Inj) 50 mcg Q5M PRN IV 10/22/16 08:30 10/22/16 13:30 Ephedrine Sulfate (EpHEDrine SULFATE INJ) 5 mg Q5M PRN IV 10/22/16 08:30 10/22/16 13:30 Atropine Sulfate (Atropine Sulfate 0.1MG/Ml Inj) 0.5 mg Q1M PRN IV 10/22/16 08:30 10/22/16 13:30 Cefazolin Sodium 65 ml @ 100 mls/hr TODAY@1000 IV 10/22/16 10:00 10/22/16 18:00 Review of Systems Review of Systems Constitutional: No fever, No chills, No frequent headaches Endocrine: No excessive thirst, No too cold Gastrointestinal: No abdominal pain, No nausea, No vomiting Cardiovascular: + irregular heartbeat, + palpitations, + swelling ankles/feet, No chest pain Respiratory: No shortness of breath, No chronic cough Male : + frequent urination, + blood in urine, + kidney stones, + nocturia more than once/night, No painful urination, No urinary retention Physical Exam Vital Signs: Vital Signs Past 12 Hours Date Time Temp Pulse Resp B/P (MAP) Pulse Ox O2 Delivery O2 Flow Rate FiO2 10/22/16 09:26 36.8 62 18 140/72 (94) 98 Room Air Physical Exam: General Appearance: WD/WN, no apparent distress, + obese Eyes: bilateral eyes normal inspection ENT: hearing grossly normal Neck: no adenopathy Respiratory/Chest: normal breath sounds, no respiratory distress, no accessory muscle use Cardiovascular: regular rate, rhythm Extremities: normal range of motion, non-tender, + pedal edema Neurologic/Psychiatric: alert, normal mood/affect, oriented x 3 Skin: normal color, warm/dry, no rash Assessment & Plan Assessment & Plan large right kidney stone plan right ureteroscopy laser lithotripsy basket stone extraction stent exchange ancef software sales consultant scds
[2016-10-22] MEDS ORDERED: SUCCINYLCHOLINE 100MG/5ML SYR IV ONE (11:37)
[2016-10-22] MEDS ORDERED: DEXAMETHASONE SOD INJ 4 MG/ML VIAL ONE (11:37)
[2016-10-22] MEDS ORDERED: BELLADONNA/OPIUM SUPP 60 MG SUPP PR ONE ×2 (11:38→12:32)
[2016-10-22] MEDS ORDERED: KETOROLAC TROMETHAMINE 30 MG/ML VIAL ONE (12:01)
--- NOTE | 2016-10-22 13:34 | [facility] Operative Report ---
Operative Report Operative Date Oct 22, 2016. Pre-Operative Diagnosis Large right kidney stone Post-Operative Diagnosis same Procedure(s) Performed cysto right ureteroscopy laser lithotripsy basket stone extraction stent exchange. Surgeon Dr. Mckeon Elastic Cutter Surgeon(s) none Estimated Blood Loss 5 ml Findings radio-opaque right kidney stone Fluids 800mL Specimens None Per Surgeon Drains 6 fr 26 centimeter double j stent Anesthesia GET Complication(s) None Disposition Recovery Room / PACU Indications large right kidney stone in a morbidly obese medically complex male. We have opted for serial ureteroscopy instead of PCNL Description of Procedure Patient was given general GET anesthesia this time with glidescope and placed in lithotomy position. His genitals were prepped and draped in sterile fashion. We used bariatric stirrups due to his size and weight of his legs. Time out held with team. I placed a 21 fr rigid cystoscope to bladder. The urethra is unremarkable. The prostate is trilobar but not long. The UOs are normal. I grasped stent tip and withdrew to meatus. I placed a stiff wire thru stent up right ureter and saw it reach kidney and stone on fluoro. I removed stent and found it to be intact. I passed the flexible ureteroscope into the distal and mid ureter about a 8 times to remove stone fragments which had migrated down the ureter. I used a 2.4 Fr zero tip basket. His ureter has dilated better with stent. Once the ureter was free of stone to the UPJ I placed a second wire and placed a 46 centimeter 14/16 sheath, which would only pass to the top of mid ureter and no further. I then switched to a 36 centimeter sheath. I spent 2 hours lasering the large hard right renal pelvis stone and removing dozens more fragments with the basket. I have all of the stone fragmented and there are about 30 pieces remaining in 2 calyces. I placed a 26 centimeter 6 Fr double J stent easily. There is brisk efflux after placement. Stone fragments were sent for analysis last time so none sent today. I left bladder empty and concluded case. I placed a belladonna and opium suppository for post-op pain. He transferred to recovery under my escort, in stable condition. Plan: Home today Pyridium for dysuria x 3 days flomax daily oral pain meds as needed ASA 3 clean contaminated case 38 seconds fluoro ancef antibiotic software validation engineer I attest to the content of the Intraoperative Record and any orders documented therein. Any exceptions are noted below.
[2016-10-22] MEDS ORDERED: OXYC-57 PO (13:36)
[2016-10-22] MEDS ORDERED: PHEN-775 PO (13:36)
--- NOTE | 2016-10-22 13:37 | Discharge Instructions ---
Discharge Instructions Date of Service Oct 22, 2016. Admission Reason for Admission: Right Kidney Stone Discharge Discharge Diagnosis / Problem: right kidney stone Discharge Goals Goal(s): Improve disease control Activity Recommendations Activity Limitations: resume your previous activity Lifting Limitations: none Exercise/Sports Limitations: none May Resume Sexual Activity: when tolerated Shower/Bathe: no limitations Driving or Machine Use: resume 1 day after discharge . Instructions / Follow-Up Instructions / Follow-Up call with fever or uncontrolled pain drink extra water with a splash of lemon juice to keep urine clear cut salt decrease meat intake to 2 servings per day each the size of a deck of cards Discharge Diet Recommended Diet: Regular Diet Procedures Procedures Performed: Cystoscopy, Right Ureteroscopy, Laser Lithotripsy - Basket Stone Extraction; Stent Exchange Pending Studies Studies pending at discharge: no Laboratory Results Lipid Panel Test 09/30/16 06:20 Range/Units Triglycerides Level 105 0-150 mg/dl Cholesterol Level 166 0-200 mg/dl HDL Cholesterol 40 mg/dl Cholesterol/HDL Ratio 4.2 LDL Cholesterol, Calculated 105 mg/dl Medical Emergencies . Who to Call and When: Medical Emergencies: If at any time you feel your situation is an emergency, please call 911 immediately. . Non-Emergent Contact Non-Emergency issues call your: Urologist ([phone]) Call Non-Emergent contact if: temperature is above 100.5, your pain is not controlled . . "Provider Documentation" section prepared by Roselia Mckeon. . VTE Core Measure Inpt VTE Proph given/why not?: SCD's [place] Drug Monitoring Program Search Results: patient reviewed within database, no issues identified
[2016-10-22] MEDS ORDERED: METOCLOPRAMIDE HCL INJ 5 MG/ML 2 ML VIAL ONE (13:48)
[2016-10-22] MEDS ORDERED: METOCLOPRAMIDE HCL INJ 5 MG/ML 2 ML VIAL IV PRN (14:00)
[2016-10-22] MEDS ORDERED: ONDANSETRON INJ 2 MG/ML 2 ML VIAL IV PRN (14:00)
--- NOTE | 2016-10-22 14:02 | DIAGNOSTIC IMAGING REPORT ---
INTRAOPERATIVE RADIOGRAPHS CLINICAL HISTORY: Right-sided lithotripsy and ureteral stent placement. Fluoroscopy time: 42 seconds. FINDINGS: 4 spot fluoroscopic views of the right abdomen from a right-sided laser lithotripsy and stent placement procedure are presented. Correlation is made with abdominal CT dated 01/01/2016. There is cannulation of the right ureter. The initial images show a staghorn calculus in the right renal pelvis. There is evidence of lithotripsy. The final image shows the distal end of a right ureteral stent in the pelvis. IMPRESSION: Intraoperative images from a right sided lithotripsy procedure and ureteral stent placement procedure. See operative report for detailed findings. Electronically signed by: Kade Emerson M.D. 10/22/2016 2:01 PM Dictated Date/Time: 10/22/2016 1:59 PM
--- NOTE | 2016-10-22 14:08 | Anesthesiology Progress Note ---
Anesthesia Post Op Note Date & Time Oct 22, 2016 at 14:09 Vital Signs Pain Intensity: 0 Vital Signs Past 12 Hours Date Time Temp Pulse Resp B/P (MAP) Pulse Ox O2 Delivery O2 Flow Rate FiO2 10/22/16 13:37 36.6 62 21 154/91 99 Mask 10 10/22/16 09:26 36.8 62 18 140/72 (94) 98 Room Air Notes Mental Status: alert / awake / arousable, participated in evaluation Pt Amnestic to Procedure: Yes Nausea / Vomiting: adequately controlled Pain: adequately controlled Airway Patency, RR, SpO2: stable & adequate BP & HR: stable & adequate Hydration State: stable & adequate Anesthetic Complications: no major complications apparent
[2016-10-22 14:20] VITALS: BP 138/88; PULSE 67; TEMP 36.4; O2SAT 96
[2016-10-22 14:45] VITALS: BP 166/79; PULSE 68; TEMP 36; O2SAT 96
== END 2016-10-22 15:00 | disposition home or self-care (01) ==
LOC: C.ACU 08:46
PROVIDERS: ATTEND Urology
DX: N20.0 Calculus of kidney (principal); I10 Essential (primary) hypertension; I48.91 Unspecified atrial fibrillation; E66.01 Morbid (severe) obesity due to excess calories; Z68.42 Body mass index [BMI] 45.0-49.9, adult; Z90.89 Acquired absence of other organs; Z98.890 Other specified postprocedural states; Z79.82 Long term (current) use of aspirin; Z82.3 Family history of stroke; Z82.49 Family history of ischemic heart disease and other diseases of the circulatory system

== ENCOUNTER 2016-11-05 06:51 | Day surgery (SDC) | payer BC ==
[2016-11-04 16:34] VITALS: BMI 49.0
[2016-11-04 16:57] VITALS: Ht 182.9 cm; Wt 162.7 kg
[~2016-11-05] VITALS: Ht 182.9 cm; Wt 162.7 kg
[~2016-11-05 06:51] MED LIST changes: -ATROPINE SULFATE 0.1 MG/ML 5ML SYR IV PRN; +CEFAZOLIN 3000 MG/65 ML D5W IV SCH; -EpHEDrine SULFATE INJ 50 MG/ML AMP IV PRN; -FENTANYL CITRATE INJ 50 MCG/1 ML 2 ML VIAL IV PRN; +OXYC-57 PO
--- NOTE | 2016-11-05 07:21 | History and Physical ---
History & Physical Date Nov 05, 2016. Chief Complaint large right kidney stone History of Present Illness The patient is a 51 year old male here for final stone removal surgery right kidney. He had a staghorn stone and has had several staged right ureteroscopies. no new problems. post-op has done well. Past Medical/Surgical History Medical Problems: (1) Atrial fibrillation (2) Atrial fibrillation with RVR (3) Dyslipidemia (4) Hypertension (5) Obesity, Class III, BMI 40-49.9 (morbid obesity) (6) Staghorn renal calculus Surgical Problems: (1) H/O lithotripsy (2) H/O umbilical hernia repair (3) Hx of tympanostomy tubes (4) S/P laparoscopic appendectomy (5) S/P tonsillectomy Additional History Hepatic Disease: No Endocrine Disorder: No Kidney Disease: No Hypertension: Yes Heart Disease: No Bleeding Tendencies: No Infectious Diseases: No Allergies Coded Allergies: No Known Allergies (Unverified , 10/22/16) Home Medications Scheduled Aspirin (Aspirin Ec), 81 MG PO QAM Furosemide (Lasix), 20 MG PO UD Lisinopril (Zestril), 30 MG PO Q2D Sotalol Hcl (Sotalol Hcl), 1 TAB PO BID Scheduled PRN Oxycodone/Acetaminophen 5MG/325MG (Percocet 5MG/325MG), 1 TABLET PO Q6H PRN for Pain Physical Examination Skin: warm/dry, no rash Eyes: normal inspection Respiratory/Chest: lungs clear, normal breath sounds, no respiratory distress Cardiovascular: regular rate, rhythm Addiitonal Comments: ext no edema or calf tenderness Diagnosis right staghorn kidney stone plan right uscope laser litho basket stone extraction sent exchange ancef 3 g photonics engineering technologist knee high scds
[2016-11-05 07:23] VITALS: BP 141/69; PULSE 60; TEMP 36.6; O2SAT 96
[2016-11-05] MEDS ORDERED: FENTANYL CITRATE INJ 50 MCG/1 ML 2 ML VIAL ONE (07:42)
[2016-11-05] MEDS ORDERED: MIDAZOLAM HCL 1 MG/ML 2ML VIAL ONE (07:42)
[2016-11-05] MEDS ORDERED: SCOPOLAMINE 1.5 MG TDSY TD ONE ×2 (08:16→08:30)
[2016-11-05] MEDS ORDERED: HYDROmorphone INJ 1 MG/ML SYR IV PRN (08:30)
[2016-11-05] MEDS ORDERED: FENTANYL CITRATE INJ 50 MCG/1 ML 2 ML VIAL IV PRN (08:30)
[2016-11-05] MEDS ORDERED: ONDANSETRON INJ 2 MG/ML 2 ML VIAL IV PRN (08:30)
[2016-11-05] MEDS ORDERED: ATROPINE SULFATE 0.1 MG/ML 5ML SYR IV PRN (08:30)
[2016-11-05] MEDS ORDERED: EpHEDrine SULFATE INJ 50 MG/ML AMP IV PRN (08:30)
[2016-11-05] MEDS ORDERED: CONRAY 60% 50 ML VIAL ONE (08:32)
[2016-11-05] MEDS ORDERED: BELLADONNA/OPIUM SUPP 60 MG SUPP PR ONE ×2 (08:47→09:32)
[2016-11-05] MEDS ORDERED: PROPOFOL IV EMULSION 10 MG/ML 20 ML VIAL IV ONE ×2 (09:10→09:11)
[2016-11-05] MEDS ORDERED: ROCURONIUM BROMIDE 10 MG/ML 5 ML VIAL ONE (09:10)
[2016-11-05] MEDS ORDERED: LIDOCAINE HCL 2% 2 ML VIAL (20MG/ML) ONE (09:10)
[2016-11-05] MEDS ORDERED: SUCCINYLCHOLINE 100MG/5ML SYR IV ONE (09:11)
[2016-11-05] MEDS ORDERED: KETOROLAC TROMETHAMINE 30 MG/ML VIAL ONE (10:32)
--- NOTE | 2016-11-05 10:46 | [facility] Operative Report ---
Operative Report Operative Date Nov 05, 2016. Pre-Operative Diagnosis Large Right Kidney Stone Post-Operative Diagnosis renal and ureteral stones Procedure(s) Performed cysto right ureteroscopy laser lithotripsy basket stone extraction stent exchange Surgeon Dr. Mckeon Online Merchant Surgeon(s) none Estimated Blood Loss 4 ML Findings radio-opaque stones in ureter and kidney right Fluids 1400mL Specimens None per surgeon Drains 6 fr 26 centimeter double j stent Anesthesia GET Complication(s) None Disposition Recovery Room / PACU Indications many stone fragments of a staghorn stone right side. Description of Procedure Patient was given general GET anesthesia this time with glidescope and placed in lithotomy position. His genitals were prepped and draped in sterile fashion. We used bariatric stirrups due to his size and weight of his legs. Time out held with team. I placed a 21 fr rigid cystoscope to bladder. The urethra is unremarkable. The prostate is trilobar but not long. The UOs are normal. I grasped stent tip and withdrew to meatus. I placed a road runner wire thru stent up right ureter and saw it reach kidney and stone on fluoro. I removed stent and found it to be intact. I exchanged the wire for a stiff wire. I passed the flexible ureteroscope into the distal and mid ureter about a 20 times to remove stone fragments which had migrated down the ureter. I used a 2.4 Fr zero tip basket. His ureter has dilated better with stent. Once the ureter was free of stone to the UPJ I placed a second wire and placed a 35 centimeter 12/14 sheath, which would passed easily to the top of mid ureter. I spent 90 minutes removing scores of fragments with the basket. One stone was stuck in ureter and lasered there and a second stone was lasered in the lower pole calyx. I have removed all but tiny pieces and there is no radio-opaque stone on fluoro. I placed a 26 centimeter 6 Fr double J stent easily. There is brisk efflux after placement. I left bladder empty and concluded case. I placed a belladonna and opium suppository for post-op pain. He transferred to recovery under my escort, in stable condition. Plan: Home today Pyridium for dysuria x 3 days flomax daily oral pain meds as needed stent removal in 1 week I attest to the content of the Intraoperative Record and any orders documented therein. Any exceptions are noted below.
[2016-11-05] MEDS ORDERED: PHEN-775 PO (10:50)
[2016-11-05] MEDS ORDERED: OXYC-57 PO (10:50)
--- NOTE | 2016-11-05 10:52 | Discharge Instructions ---
Discharge Instructions Date of Service Nov 05, 2016. Admission Reason for Admission: Right Kidney Stone Discharge Discharge Diagnosis / Problem: right ureteral and renal stones Discharge Goals Goal(s): Decrease discomfort, Improve disease control Activity Recommendations Activity Limitations: resume your previous activity Lifting Limitations: none Exercise/Sports Limitations: none May Resume Sexual Activity: when tolerated Shower/Bathe: no limitations Driving or Machine Use: resume 1 day after discharge . Instructions / Follow-Up Instructions / Follow-Up urine will be bloody for days back to work in 2-3 days depending on your pain stent out at the [facility] urology office [address] yourself to that appointment Discharge Diet Recommended Diet: Regular Diet Fluid Restriction: None Procedures Procedures Performed: Cystoscopy, Right Ureteroscopy, Laser Lithotripsy - Basket Stone Extraction; Stent Exchange Pending Studies Studies pending at discharge: no Laboratory Results Lipid Panel Test 09/30/16 06:20 Range/Units Triglycerides Level 105 0-150 mg/dl Cholesterol Level 166 0-200 mg/dl HDL Cholesterol 40 mg/dl Cholesterol/HDL Ratio 4.2 LDL Cholesterol, Calculated 105 mg/dl Medical Emergencies . Who to Call and When: Medical Emergencies: If at any time you feel your situation is an emergency, please call 911 immediately. . Non-Emergent Contact Non-Emergency issues call your: Urologist ([phone]) Call Non-Emergent contact if: temperature is above 100.5 . . "Provider Documentation" section prepared by Roselia Mckeon. . VTE Core Measure Inpt VTE Proph given/why not?: SCD's [place] Drug Monitoring Program Search Results: patient reviewed within database, no issues identified
--- NOTE | 2016-11-05 11:14 | Anesthesiology Progress Note ---
Anesthesia Post Op Note Date & Time Nov 05, 2016 at 11:13 Vital Signs Pain Intensity: 0 Vital Signs Past 12 Hours Date Time Temp Pulse Resp B/P (MAP) Pulse Ox O2 Delivery O2 Flow Rate FiO2 11/05/16 10:45 36.4 67 12 147/78 100 Mask 10 11/05/16 07:23 36.6 60 20 141/69 (93) 96 Room Air Notes Mental Status: alert / awake / arousable, participated in evaluation Pt Amnestic to Procedure: Yes Nausea / Vomiting: adequately controlled Pain: adequately controlled Airway Patency, RR, SpO2: stable & adequate BP & HR: stable & adequate Hydration State: stable & adequate Anesthetic Complications: no major complications apparent
--- NOTE | 2016-11-05 11:22 | DIAGNOSTIC IMAGING REPORT ---
KUB CLINICAL HISTORY: RT CYSTO/LASER/STENT EXCHANGE TECHNIQUE: Image intensifier COMPARISON STUDY: None FINDINGS: Right ureteral stent exchange IMPRESSION: Right ureteral stent exchange Electronically signed by: Ajit Mckeon M.D. 11/05/2016 11:21 AM Dictated Date/Time: 11/05/2016 11:20 AM
[2016-11-05 11:37] VITALS: BP 131/75; PULSE 67; TEMP 36.5; O2SAT 94
[2016-11-05 12:10] VITALS: BP 129/66; PULSE 67; O2SAT 97
[2016-11-05 12:40] VITALS: BP 123/70; PULSE 62; TEMP 36.4; O2SAT 98
== END 2016-11-05 12:45 | disposition home or self-care (01) ==
LOC: C.ACU 06:51
PROVIDERS: ATTEND Urology
DX: N20.2 Calculus of kidney with calculus of ureter (principal); I48.91 Unspecified atrial fibrillation; I10 Essential (primary) hypertension; E78.5 Hyperlipidemia, unspecified; E66.9 Obesity, unspecified; Z68.41 Body mass index [BMI] 40.0-44.9, adult; Z79.82 Long term (current) use of aspirin; Z79.899 Other long term (current) drug therapy

== ENCOUNTER 2024-09-16 21:26 | Inpatient (IN) ==
[2024-09-16] MEDS: SODIUM CHLORIDE 0.9% 1,000 ML IV ONE (21:51)
[2024-09-16 21:57] LABS: Base Excess VBG -0.4 mEq/L; HCO3 VBG 25 mmol/L; Oxygen Saturation VBG < 60.0 %; PCO2 VBG 42 mmHg (38-50); PO2 VBG 23 mmHg; pH VBG 7.38 (7.36-7.41)
[2024-09-16 22:05] LABS: Basophils # (auto) 0.04 K/uL (0.00-0.20); Basophils % (auto) 0.3 %; Eosinophils # (auto) 0.04 K/uL (0.00-0.50); Eosinophils % (auto) 0.3 %; Hematocrit (blood only) 37.1 % (42.0-52.0); Hemoglobin 12.4 g/dl (14.0-18.0); Immature Granulocytes % (auto) 0.8 %; Lymphocytes # (auto) 1.79 K/uL (1.20-3.40); Lymphocytes % (auto) 14.3 %; Mean Corpuscular Hemoglobin 35.6 pg (25.0-34.0); Mean Corpuscular Hgb Conc 33.4 g/dL (32.0-36.0); Mean Corpuscular Volume 106.6 fL (80.0-100.0); Mean Platelet Volume 8.6 fL (9.4-12.4); Monocytes # (auto) 0.76 K/uL (0.11-0.59); Monocytes % (auto) 6.1 %; Neutrophils # (auto) 9.76 K/uL (1.40-6.50); Neutrophils % (auto) 78.2 %; Nucleated RBC # (auto) 0.02 K/uL (0.00-0.12); Nucleated RBC % (auto) 0.2 %; Platelet Count 250 K/uL (130-400); RDW Coefficient of Variation 14.5 % (11.5-14.5); RDW Standard Deviation 56.4 fL (36.4-46.3); Red Blood Count 3.48 M/uL (4.70-6.10); White Blood Count 12.49 K/ul (4.8-10.8)
[2024-09-16] MEDS ORDERED: VANCOMYCIN CONSULT ACTIVE PRN (22:15)
[2024-09-16 22:16] LABS: Albumin Level 3.2 gm/dl (3.4-5.0); BUN Creatinine Ratio 10.2 (10-20); Bilirubin Direct 0.3 mg/dl (0-0.2); Calcium 8.5 mg/dl (8.6-10.3); Creatinine Clr Calc Pharmacy 130.6 ml/min; Magnesium 1.5 mg/dl (1.7-2.4); Potassium 4.4 mmol/L (3.5-5.1); Total Protein 7.7 gm/dl (6.0-8.3)
[2024-09-16 22:22] LABS: Troponin I High Sensitivity 36.3 pg/ml (0-20)
[2024-09-16] MEDS: PIPERACILLIN/TAZOBACTAM 4.5 GM/120 ML BAG IV ONE (22:27)
[2024-09-16 22:36] LABS: INR 1.2 (0.9-1.1); Partial Thromboplastin Ratio 1.2; Partial Thromboplastin Time 33 Seconds (21-31); Prothrombin Time 13.3 Seconds (9.0-12.0)
[2024-09-16] MEDS: MAGNESIUM SULFATE / D5W 1 GM/100 ML BAG IV SCH (22:58)
[2024-09-16] MEDS: RAPID SEQUENCE INDUCTION BAG ONE (23:02)
[2024-09-16 23:13] LABS: Adenovirus PCR Not Detected (NotDetected); Bordetella parapertussis PCR Not Detected (NotDetected); Bordetella pertussis PCR Not Detected (NotDetected); Chlamydia pneumoniae PCR Not Detected (NotDetected); Coronavirus 229E PCR Not Detected (NotDetected); Coronavirus CoV-2 (COVID19)PCR Not Detected (NotDetected); Coronavirus HKU1 PCR Not Detected (NotDetected); Coronavirus NL63 PCR Not Detected (NotDetected); Coronavirus OC43PCR Not Detected (NotDetected); Human Metapneumovirus PCR Not Detected (NotDetected); Influenza A PCR Not Detected (NotDetected); Influenza B PCR Not Detected (NotDetected); Mycoplasma pneumoniae PCR Not Detected (NotDetected); Parainfluenza Virus 1 PCR Not Detected (NotDetected); Parainfluenza Virus 2 PCR Not Detected (NotDetected); Parainfluenza Virus 3 PCR Not Detected (NotDetected); Parainfluenza Virus 4 PCR Not Detected (NotDetected); Respiratory Syncytial VirusPCR Not Detected (NotDetected); Rhinovirus/Enterovirus PCR Not Detected (NotDetected)
[2024-09-16] MEDS: VANCOMYCIN HCL 2,750 MG in SODIUM CHLORIDE 0.9% 500 ML IV ONE (23:35)
--- NOTE | 2024-09-16 23:48 | Emergency Department Note ---
History of Present Illness General Chief complaint: Leg Weakness, Bilateral Stated complaint: Edema Bilateral Legs, Hypotension, Weakness Time Seen by Provider: 09/16/24 21:33 Source: patient and EMS History of Present Illness Provider complaint: Weakness 58-year-old male presents emergency department for weakness. Patient reports he has been feeling weak over the last 2 days. He reports yesterday he was vomiting. He reports difficulty breathing and swelling of his legs. He reports swelling of his legs only began 1 week ago. Patient reports he does not usually wear oxygen. EMS reported that the patient was hypoxic on room air 82% which improved with supplemental oxygen saturation. Patient was febrile for EMS and they gave a gram of Tylenol prior to arrival. Home Medications Medication Instructions Recorded Confirmed Type multivitamin 1 tab PO DAILY 08/17/24 09/16/24 History apixaban 5 mg tablet (Eliquis) 5 mg PO BID 90 days #180 tabs 08/30/24 09/16/24 Rx losartan 25 mg tablet 25 mg PO QAM 90 days #90 tabs 08/30/24 09/16/24 Rx metoprolol succinate 100 mg 100 mg PO QAM 90 days #90 tabs 08/30/24 09/16/24 Rx tablet,extended release 24 hr rosuvastatin 20 mg tablet 20 mg PO DAILY 90 days #90 tabs 08/30/24 09/16/24 Rx torsemide 100 mg tablet 100 mg PO DAILY 90 days #90 tabs 08/30/24 09/16/24 Rx Allergies Allergy/AdvReac Type Severity Reaction Status Date / Time ondansetron [From Zofran] Allergy Intermediate Nausea Verified 09/16/24 22:19 Past Med/Surg History Problem List (Updated 09/17/24 @ 00:53 by Alon Casey MD) Cellulitis Sepsis Hypertension (Chronic) Dyslipidemia (Chronic) Staghorn renal calculus (Chronic) Obesity, Class III, BMI 40-49.9 (morbid obesity) (Chronic) Hx of tympanostomy tubes (Chronic) S/P laparoscopic appendectomy (Chronic) S/P tonsillectomy (Chronic) H/O umbilical hernia repair (Chronic) H/O lithotripsy (Chronic) Atrial fibrillation with RVR Medical History Hypertension History of COVID-19 last year > not hospitalized History of kidney stones Diastolic heart failure Sleep apnea possible? getting test on May 12 Dyslipidemia Atrial fibrillation dx approx 2 -3 yrs ago > no pacer > Jantoven > follows with Dr. Paiz Surgical History Hx of tympanostomy tubes History of colonoscopy History of tonsillectomy H/O umbilical hernia repair S/P laparoscopic appendectomy H/O lithotripsy Family History Mother Breast cancer Heart disease Kidney disease Sister Breast cancer Father Stroke Social History Smoking Status: Never smoker Second Hand Exposure: No; Do You Dip or Chew Tobacco: No; Hx Alcohol Use: Yes Alcohol type: wine Hx Substance Use: No Preferred Language: Palauan Communication Ability: Effective Senior Lead Developer Required: No Beliefs That Will Affect Care: None Current Living Situation: Alone Feels Safe at Home: Yes Assistive Devices: Denture - Lower Physical Exam Vital Signs Vital Signs - 24 hr 09/16/24 21:34 09/16/24 21:44 09/16/24 21:48 Temperature 38.8 C H Temperature Source Oral Pulse Rate 112 H 118 H 117 H Pulse Rate from SpO2 Sensor Pulse Rhythm Irregular Pulse Strength Normal Respiratory Rate 24 35 H Respiratory Effort / Characteristics Spontaneous Short of Breath Respiratory Depth Normal Respiratory Pattern Regular Blood Pressure 99/50 L 92/50 L Blood Pressure Mean 66 64 Blood Pressure Position Sitting Pulse Oximetry 92 100 Oxygen Delivery Method Nebulizer Non-rebreather Oxygen Flow Rate 15 10 Sepsis Recent Fever Within 48 Hours Yes Sepsis New/Unexplained Change in Mental Status N/A Sepsis Action Taken by Nursing No Action Required 09/16/24 22:09 09/16/24 22:12 09/16/24 22:21 Temperature Temperature Source Pulse Rate 109 H 106 H Pulse Rate from SpO2 Sensor 113 H 110 H 110 H Pulse Rhythm Pulse Strength Respiratory Rate 34 H 36 H Respiratory Effort / Characteristics Respiratory Depth Respiratory Pattern Blood Pressure 73/42 L 96/54 L 118/57 L Blood Pressure Mean 52 68 77 Blood Pressure Position Pulse Oximetry 95 98 96 Oxygen Delivery Method Oxymask Oxymask Nasal Cannula Oxygen Flow Rate 6 6 4 Sepsis Recent Fever Within 48 Hours Sepsis New/Unexplained Change in Mental Status Sepsis Action Taken by Nursing 09/16/24 23:00 09/16/24 23:03 09/16/24 23:05 Temperature 38.6 C H Temperature Source Oral Pulse Rate 115 H Pulse Rate from SpO2 Sensor 120 H Pulse Rhythm Pulse Strength Respiratory Rate 32 H Respiratory Effort / Characteristics Respiratory Depth Respiratory Pattern Blood Pressure 98/47 L 98/47 L Blood Pressure Mean 64 56 Blood Pressure Position Pulse Oximetry 99 Oxygen Delivery Method Nasal Cannula Oxygen Flow Rate 4 Sepsis Recent Fever Within 48 Hours Sepsis New/Unexplained Change in Mental Status Sepsis Action Taken by Nursing 09/16/24 23:46 09/17/24 00:03 09/17/24 00:15 Temperature Temperature Source Pulse Rate 114 H 110 H 112 H Pulse Rate from SpO2 Sensor 108 H 104 H Pulse Rhythm Pulse Strength Respiratory Rate 23 32 H 32 H Respiratory Effort / Characteristics Respiratory Depth Respiratory Pattern Blood Pressure 92/51 L 84/44 L 107/60 Blood Pressure Mean 66 57 75 Blood Pressure Position Pulse Oximetry 92 100 100 Oxygen Delivery Method Room Air Oxygen Flow Rate Sepsis Recent Fever Within 48 Hours Sepsis New/Unexplained Change in Mental Status Sepsis Action Taken by Nursing Physical Exam GENERAL: Ill-appearing HENT: Exam performed. - Head: Normocephalic and atraumatic. CV: Tachycardic rate, irregular rhythm, normal heart sounds and intact distal pulses. Palpable radial pulses bue. PULM/CHEST: Diminished breath sounds bilaterally. ABD: The abdomen is soft. Obese. There is no tenderness. There is no rebound, no guarding. MUSC/SKEL: Bilateral lower extremity lymphedema with extremely purulent foul- smelling discharge weeping from both bilateral lower extremities. NEURO: He is alert and oriented to person, place, and time. He has normal strength. Course Course 2132: The patient was evaluated in room A1. A complete history and physical exam was performed Cardiac monitoring: An order was placed for continuous cardiac monitoring. The monitor shows a rate of 110 with atrial fibrilation rhythm interpreted by nm Sepsis protocols initiated for the patient. 2204: Vital signs stable with IV fluids running. Patient's lactic acid 2.6. Will hold off on giving a full 30 cc/kg normal saline bolus as patient has history of congestive heart failure. Broad-spectrum antibiotics will be ordered for the patient. 2214: Chest x-ray viewed by nm shows mild cardiomegaly and mild cephalization. No infiltrate. X-ray of the bilateral tib-fib show no soft tissue gas or fracture when viewed by me. 0000: Patient becoming hypotensive again. Second liter IV fluid started on the patient. 0025: Discussed case with Dr. Casey [facility] hospitalist who asked that critical care be consulted on the patient. Spoke with [facility] who states she will be down to evaluate the patient. Administered Medications Discontinued Medications Sodium Chloride (Nss) 1,000 mls @ 999 mls/hr IV .Q1H1M ONE Stop: 09/16/24 22:35 Last Infusion: 09/16/24 22:54 Dose: Infused Documented By: Admin: 09/16/24 21:51 Dose: 999 mls/hr Documented By: WESTLEY Sodium Chloride (Nss) 1,000 mls @ 999 mls/hr IV .Q1H1M ONE Stop: 09/16/24 23:11 Last Admin: 09/17/24 00:40 Dose: 999 mls/hr Documented By: PHILIP Piperacillin Sod/Tazobactam Sod (Zosyn) 4.5 gm in 120 mls @ 240 mls/hr IV NOW ONE Stop: 09/16/24 22:44 Last Infusion: 09/16/24 22:54 Dose: Infused Documented By: Admin: 09/16/24 22:27 Dose: 240 mls/hr Documented By: WESTLEY Vancomycin HCl 2,750 mg/ (Sodium Chloride) 555 mls @ 200 mls/hr IV NOW ONE Stop: 09/17/24 01:01 Last Admin: 09/16/24 23:35 Dose: 200 mls/hr Documented By: PHILIP Magnesium Sulfate/Dextrose (Magnesium Sulfate / D5w) 1 gm in 100 mls @ 100 mls/hr IV Q1H [facility] Stop: 09/17/24 00:17 Last Infusion: 09/17/24 01:01 Dose: Infused Documented By: Admin: 09/17/24 00:01 Dose: 100 mls/hr Documented By: Infusion: 09/17/24 00:00 Dose: Infused Documented By: Admin: 09/16/24 22:58 Dose: 100 mls/hr Documented By: WESTLEY Norepinephrine Bitartrate (Levophed/D5w) 4 mg in 250 mls @ 36.225 mls/hr IV .Q6H55M YULIYA; Protocol Stop: 10/17/24 00:14 Last Admin: 09/17/24 00:40 Dose: Not Given Documented By: PHILIP Miscellaneous (Rapid Sequence Induction Bag) Confirm Administered Dose 1 each N/A .STK-MED ONE Stop: 09/16/24 21:53 Last Admin: 09/16/24 23:02 Dose: Not Given Documented By: TORY Critical Care Time Critical Care Time: Yes Total Critical Care Time: 58 I have personally spent greater than 58 minutes of critical care time in the direct management of this patient. This includes bedside care, interpretation of diagnostic studies, and testing, discussion with consultants, patient, and family members, and other required patient management activities. This 58 minutes is in excess of all separately billable procedures. Medical Decision Making Laboratory Data Attestation: I reviewed the patient's lab results. 09/16/24 21:45 09/16/24 21:45 Lab Results 09/16/24 09/16/24 09/16/24 Range/Units 21:45 21:54 23:38 WBC 12.49 H (4.8-10.8) K/ul RBC 3.48 L (4.70-6.10) M/uL Hgb 12.4 L (14.0-18.0) g/dl Hct 37.1 L (42.0-52.0) % MCV 106.6 H (80.0-100.0) fL MCH 35.6 H (25.0-34.0) pg MCHC 33.4 (32.0-36.0) g/dL RDW Std Deviation 56.4 H (36.4-46.3) fL RDW Coeff of Kristan 14.5 (11.5-14.5) % Plt Count 250 (130-400) K/uL MPV 8.6 L (9.4-12.4) fL Immature Gran % (Auto) 0.8 % Neut % (Auto) 78.2 % Lymph % (Auto) 14.3 % [place] % (Auto) 6.1 % Eos % (Auto) 0.3 % Baso % (Auto) 0.3 % Neut # (Auto) 9.76 H (1.40-6.50) K/uL Lymph # (Auto) 1.79 (1.20-3.40) K/uL [place] # (Auto) 0.76 H (0.11-0.59) K/uL Eos # (Auto) 0.04 (0.00-0.50) K/uL Baso # (Auto) 0.04 (0.00-0.20) K/uL Immature Gran # (Auto) 0.10 (0.01-0.20) K/uL Absolute Nucleated RBC 0.02 (0.00-0.12) K/uL Nucleated RBC % (auto) 0.2 % PT 13.3 H (9.0-12.0) Seconds INR 1.2 H (0.9-1.1) APTT 33 H (21-31) Seconds PTT Ratio 1.2 VBG pH 7.38 (7.36-7.41) VBG pCO2 42 (38-50) mmHg VBG pO2 23 mmHg VBG HCO3 25 mmol/L VBG O2 Saturation < 60.0 % VBG Base Excess -0.4 mEq/L Sodium 136 (136-145) mmol/L Potassium 4.4 (3.5-5.1) mmol/L Chloride 104 (98-107) mmol/L Carbon Dioxide 25 (21-32) mmol/L Anion Gap 7 (3-11) BUN 11 (6-23) mg/dl Creatinine 1.08 (0.6-1.4) mg/dl Est Cr Clr Drug Dosing 130.6 ml/min eGFR 79.54 BUN/Creatinine Ratio 10.2 (10-20) Glucose 99 (70-99(Fasting)) mg/dl Lactate 2.6 H* 2.3 H* (0.4-2.0) mmol/L Calcium 8.5 L (8.6-10.3) mg/dl Magnesium 1.5 L (1.7-2.4) mg/dl Total Bilirubin 1.0 (0.2-1.0) mg/dl Direct Bilirubin 0.3 H (0-0.2) mg/dl AST 32 (13-39) U/L ALT 9 (7-52) U/L Alkaline Phosphatase 54 (34-104) U/L Troponin I High Sens 36.3 H 46.8 H D (0-20) pg/ml B-Natriuretic Peptide 406 H (0-100) pg/ml Total Protein 7.7 (6.0-8.3) gm/dl Albumin 3.2 L (3.4-5.0) gm/dl Procalcitonin 13.40 H (0-0.5) ng/ml Adenovirus (PCR) Not Detected (NotDetected) B. pertussis DNA (PCR) Not Detected (NotDetected) B.parapertussis DNA PCR Not Detected (NotDetected) C. pneumoniae DNA (PCR) Not Detected (NotDetected) Coronavirus OC43 (PCR) Not Detected (NotDetected) Coronavirus HKU1 (PCR) Not Detected (NotDetected) Coronavirus 229E (PCR) Not Detected (NotDetected) SARS-CoV-2 (PCR) Not Detected (NotDetected) Coronavirus NL63 (PCR) Not Detected (NotDetected) Human Metapneumovir PCR Not Detected (NotDetected) Influenza Type A (PCR) Not Detected (NotDetected) Influenza Type B (PCR) Not Detected (NotDetected) M. pneumoniae (PCR) Not Detected (NotDetected) Parainfluenza 1 (PCR) Not Detected (NotDetected) Parainfluenza 2 (PCR) Not Detected (NotDetected) Parainfluenza 3 (PCR) Not Detected (NotDetected) Parainfluenza 4 (PCR) Not Detected (NotDetected) RSV (PCR) Not Detected (NotDetected) Entero/Rhino (PCR) Not Detected (NotDetected) Imaging Data Attestation: I personally reviewed and interpreted this imaging study as follows: My Impression: Chest x-ray viewed by me shows mild cardiomegaly and mild cephalization. No infiltrate. X-ray of the bilateral tib-fib show no soft tissue gas or fracture when viewed by me. Radiologist's Impression: Chest X-Ray 09/16/24 21:34 Exam(s): XR CXR 1 VIEW EXAM: XR Chest, 1 View CLINICAL HISTORY: Reason for exam: Sepsis. TECHNIQUE: Frontal view of the chest. COMPARISON: September 29, 2016 FINDINGS: Lungs: Unremarkable. No consolidation. Pleural space: Unremarkable. No pneumothorax. Heart: The cardiac silhouette is mildly enlarged, exaggerated by body habitus, portable technique, an expiratory chest. Mediastinum: Unremarkable. Normal mediastinal contour. Bones/joints: Unremarkable. No acute fracture. Upper abdomen: Unremarkable as visualized. No pneumoperitoneum under the diaphragm. IMPRESSION: The cardiac silhouette is mildly enlarged, exaggerated by body habitus, portable technique, an expiratory chest. Electronically signed by: Yury Vargas MD 09/17/24 00:55 AM Tibia/Fibula X-Ray 09/16/24 21:35 Exam(s): XR LEFT TIB/FIB, 2 views EXAM: XR Left Tibia and Fibula, 2 Views CLINICAL HISTORY: Reason for exam: leg swelling infection. TECHNIQUE: Frontal and lateral views of the left tibia and fibula. COMPARISON: No relevant prior studies available. FINDINGS: Bones/joints: Severe narrowing and mild osteophytosis of the medial joint space as well as mild narrowing and osteophytosis of the lateral joint space and patellofemoral joint space consistent with osteoarthritis of the left knee. Mild degenerative changes in the left ankle. No fracture or dislocation is seen. Soft tissues: There is diffuse soft tissue edema throughout the visualized left lower leg. No subcutaneous emphysema or foreign body is seen. IMPRESSION: There is diffuse soft tissue edema throughout the visualized left lower leg. No subcutaneous emphysema or foreign body is seen. Mild to moderate osteoarthritic changes of the left knee and ankle. No acute fracture or dislocation is seen. Electronically signed by: Yury Vargas MD 09/17/24 00:57 AM Tibia/Fibula X-Ray 09/16/24 21:35 Exam(s): XR RIGHT TIB/FIB, 2 views EXAM: XR Right Tibia and Fibula, 2 Views CLINICAL HISTORY: Reason for exam: leg swelling infection. TECHNIQUE: Frontal and lateral views of the right tibia and fibula. COMPARISON: No relevant prior studies available. FINDINGS: Bones/joints: Moderate lateral and severe medial knee joint space narrowing and osteophytosis consistent with osteoarthritis. No acute fracture. No dislocation. Soft tissues: Diffuse soft tissue edema throughout the right lower leg. No subcutaneous emphysema or foreign body is seen. IMPRESSION: 1. Diffuse soft tissue edema throughout the right lower leg. No subcutaneous emphysema or foreign body is seen. 2. Moderate lateral and severe medial knee joint space narrowing and osteophytosis consistent with osteoarthritis. There are also mild osteoarthritic changes of the right ankle. No acute fracture or dislocation is seen. Electronically signed by: Yury Vargas MD 09/17/24 00:58 AM ECG Data Attestation: I personally reviewed and interpreted this ECG as follows: Rate (beats per minute): 117 Rhythm: + atrial fibrillation ECG Intervals/blocks: + Normal QT-c ECG ST segments: + Normal ST segments Additional Comments: QRS 76 MDM Narrative 2132: The patient was evaluated in room A1. A complete history and physical exam was performed Cardiac monitoring: An order was placed for continuous cardiac monitoring. The monitor shows a rate of 110 with atrial fibrilation rhythm interpreted by me Sepsis protocols initiated for the patient. 2205: Vital signs stable with IV fluids running. Patient's lactic acid 2.6. Will hold off on giving a full 30 cc/kg normal saline bolus as patient has history of congestive heart failure. Broad-spectrum antibiotics will be ordered for the patient. 2215: Chest x-ray viewed by me shows mild cardiomegaly and mild cephalization. No infiltrate. X-ray of the bilateral tib-fib show no soft tissue gas or fracture when viewed by me. 0000: Patient becoming hypotensive again. Second liter IV fluid started on the patient. 0025: Discussed case with Dr. Casey [facility] hospitalist who asked that critical care be consulted on the patient. Spoke with [facility] who states she will be down to evaluate the patient. Impression & Plan Sepsis, Cellulitis Discharge Plan Visit Data Chief Complaint: Leg Weakness, Bilateral Stated Complaint: Edema Bilateral Legs, Hypotension, Weakness ED Provider: Woodrow Hugo Discharge Problem: Sepsis, Cellulitis Patient Disposition: Admitted As Inpatient Condition: Critical Forms Stand Alone Forms: My [facility] Prescriptions Prescriptions: No Action multivitamin Tablet 1 tab PO DAILY Eliquis 5 mg tablet 5 mg PO BID 90 Days Qty: 180 2RF losartan 25 mg tablet 25 mg PO QAM 90 Days Qty: 90 3RF metoprolol succinate 100 mg tablet extended release 24 hr 100 mg PO QAM 90 Days Qty: 90 3RF rosuvastatin 20 mg tablet 20 mg PO DAILY 90 Days Qty: 90 4RF torsemide 100 mg tablet 100 mg PO DAILY 90 Days Qty: 90 2RF Referrals Referrals: Melody Jones MD [Primary Care Provider] -
--- NOTE | 2024-09-16 23:59 | History & Physical Report ---
Date of Service September 16, 2024 Assessment & Plan (1) Atrial fibrillation with RVR: (2) Sepsis: (3) Cellulitis: Plan 58 year old male with chronic lymphedema and presents to the ER with left leg cellulitis, sepsis, a. fib RVR #Sepsis / left leg cellulitis / bilateral leg ulceration Increased WBC, RR, tachycardia Lactate 2.6 -> 2.3, initially full sepsis bolus not given due to concern for heart failure however given no worsening respiratory status will IV Zosyn and vancomycin given in the ER. Will switch from vancomycin to daptomycin given elevated BMI and reduced risk of PATRICIA with Zosyn CT leg to assess for abscess Consult wound care #A. fib RVR Previously diagnosed however patient reports paroxysmal Continue anticoagulation with Eliquis 5mg PO BID Although rate currently fast it appears appropriate for current illness, hold metoprolol pending reassessment tomorrow, but likely can be restarted on full or half normal dose #Chronic HFpEF Currently appears intravascularly dry with BP responsive to IV fluids. Hold torsemide but like TTE #HTN Hold metoprolol, torsemide, losartan #Hyperlipidemia Hold rosuvastatin while on daptomycin VTE Prophylaxis - Eliquis Disposition - admit to PCU Admission and Anticipated Discharge Date Admission Date: September 16, 2024 History of Present Illness Chief Complaint: Vomiting Generalized weakness Primary Care Provider: Melody Jones MD Jose De [place] is a 58 year old male who presents to the ER with fever, vomiting, generalized weakness, left leg swelling and erythema. He has chronic lymphedema but reports worsening leg swelling and erythema for the last 1.5 weeks. He reports nausea and vomiting for the last 2 days with fever, chills, left leg erythema, swelling and pain. No abdominal pain, change in bowels, hematemesis, melena or hematochezia. EMS reported that the patient was hypoxic on room air 82% however he denies any shortness of breath, cough or chest pain. No urinary symptoms. Some concern for obstructive sleep apnea however he is yet to undergo testing for this. Allergies Allergy/AdvReac Type Severity Reaction Status Date / Time ondansetron [From Zofran] Allergy Intermediate Nausea Verified 09/16/24 22:19 Home Medications Medication Instructions Recorded Confirmed Type multivitamin 1 tab PO DAILY 08/17/24 09/16/24 History apixaban 5 mg tablet (Eliquis) 5 mg PO BID 90 days #180 tabs 08/30/24 09/16/24 Rx losartan 25 mg tablet 25 mg PO QAM 90 days #90 tabs 08/30/24 09/16/24 Rx metoprolol succinate 100 mg 100 mg PO QAM 90 days #90 tabs 08/30/24 09/16/24 Rx tablet,extended release 24 hr rosuvastatin 20 mg tablet 20 mg PO DAILY 90 days #90 tabs 08/30/24 09/16/24 Rx torsemide 100 mg tablet 100 mg PO DAILY 90 days #90 tabs 08/30/24 09/16/24 Rx Past Med/Surg History Problem List (Updated 09/17/24 @ 00:53 by Alon Casey MD) Cellulitis Sepsis Hypertension (Chronic) Dyslipidemia (Chronic) Staghorn renal calculus (Chronic) Obesity, Class III, BMI 40-49.9 (morbid obesity) (Chronic) Hx of tympanostomy tubes (Chronic) S/P laparoscopic appendectomy (Chronic) S/P tonsillectomy (Chronic) H/O umbilical hernia repair (Chronic) H/O lithotripsy (Chronic) Atrial fibrillation with RVR Medical History Atrial fibrillation dx approx 2 -3 yrs ago > no pacer > [place] > follows with Dr. Paiz Diastolic heart failure Dyslipidemia History of COVID-19 last year > not hospitalized History of kidney stones Hypertension Sleep apnea possible? getting test on May 12 Surgical History Hx of tympanostomy tubes History of colonoscopy History of tonsillectomy H/O umbilical hernia repair S/P laparoscopic appendectomy H/O lithotripsy Family History (Updated 08/30/24 @ 08:55 by Chelsea Verdugo LPN) Mother Breast cancer Heart disease Kidney disease Sister Breast cancer Father Stroke Social History Smoking Status: Never smoker Second Hand Exposure: No; Do You Dip or Chew Tobacco: No; Hx Alcohol Use: Yes Alcohol type: wine Hx Substance Use: No Preferred Language: British Communication Ability: Effective Manager Corporate Strategy Required: No Beliefs That Will Affect Care: None Current Living Situation: Alone Feels Safe at Home: Yes Assistive Devices: Denture - Lower Review of Systems 2 Review of Systems: All systems reviewed & are unremarkable except as noted in HPI & below Physical Exam 2 Constitutional: well developed; + not well nourished and no acute distress Eyes: + anicteric sclerae; normal pupil size ENMT: Mouth: + dry oral mucous membranes Respiratory: normal respiratory effort, lungs clear to auscultation Cardiovascular: Rate/Rhythm: + tachycardic and + irregularly irregular H eart Sounds: + murmur (MARIE 3/6 LUSB) Extremities: normal capillary refill and + pedal edema Gastrointestinal (Abdomen): normal bowel sounds, soft, nontender, no hepatosplenomegaly Skin: Left leg erythema and swelling from chronic venous ulcers to groin Right lower extremity with venous ulcerations with weeping ulcers Neurologic: moves all extremities and awake; not confused Psychiatric: A+Ox3, euthymic affect Results & Data Results & Data Vital Signs (Past 12 Hours) Vital Signs Temp Pulse Resp BP Pulse Ox O2 Del Method O2 Flow Rate 09/16/24 23:46 114 H 23 92/51 L 92 Room Air 09/16/24 23:05 38.6 C H 09/16/24 23:03 98/47 L 09/16/24 23:00 115 H 32 H 98/47 L 99 Nasal Cannula 4 09/16/24 22:21 106 H 36 H 118/57 L 96 Nasal Cannula 4 09/16/24 22:12 96/54 L 98 Oxymask 6 09/16/24 22:09 109 H 34 H 73/42 L 95 Oxymask 6 09/16/24 21:48 117 H 35 H 92/50 L 100 Non-rebreather 10 09/16/24 21:44 118 H 09/16/24 21:34 38.8 C H 112 H 24 99/50 L 92 Nebulizer 15 Laboratory Results Abnormal lab results 09/16/24 09/16/24 Range/Units 21:45 23:38 WBC 12.49 H (4.8-10.8) K/ul RBC 3.48 L (4.70-6.10) M/uL Hgb 12.4 L (14.0-18.0) g/dl Hct 37.1 L (42.0-52.0) % MCV 106.6 H (80.0-100.0) fL MCH 35.6 H (25.0-34.0) pg RDW Std Deviation 56.4 H (36.4-46.3) fL MPV 8.6 L (9.4-12.4) fL Neut # (Auto) 9.76 H (1.40-6.50) K/uL Barber # (Auto) 0.76 H (0.11-0.59) K/uL PT 13.3 H (9.0-12.0) Seconds INR 1.2 H (0.9-1.1) APTT 33 H (21-31) Seconds Lactate 2.6 H* 2.3 H* (0.4-2.0) mmol/L Calcium 8.5 L (8.6-10.3) mg/dl Magnesium 1.5 L (1.7-2.4) mg/dl Direct Bilirubin 0.3 H (0-0.2) mg/dl Troponin I High Sens 36.3 H (0-20) pg/ml B-Natriuretic Peptide 406 H (0-100) pg/ml Albumin 3.2 L (3.4-5.0) gm/dl Procalcitonin 13.40 H (0-0.5) ng/ml Diagnostic Findings XR Chest, 1 View CLINICAL HISTORY: Reason for exam: Sepsis. TECHNIQUE: Frontal view of the chest. COMPARISON: September 29, 2016 FINDINGS: Lungs: Unremarkable. No consolidation. Pleural space: Unremarkable. No pneumothorax. Heart: The cardiac silhouette is mildly enlarged, exaggerated by body habitus, portable technique, an expiratory chest. Mediastinum: Unremarkable. Normal mediastinal contour. Bones/joints: Unremarkable. No acute fracture. Upper abdomen: Unremarkable as visualized. No pneumoperitoneum under the diaphragm. IMPRESSION: The cardiac silhouette is mildly enlarged, exaggerated by body habitus, portable technique, an expiratory chest. XR Left Tibia and Fibula, 2 Views CLINICAL HISTORY: Reason for exam: leg swelling infection. TECHNIQUE: Frontal and lateral views of the left tibia and fibula. COMPARISON: No relevant prior studies available. FINDINGS: Bones/joints: Severe narrowing and mild osteophytosis of the medial joint space as well as mild narrowing and osteophytosis of the lateral joint space and patellofemoral joint space consistent with osteoarthritis of the left knee. Mild degenerative changes in the left ankle. No fracture or dislocation is seen. Soft tissues: There is diffuse soft tissue edema throughout the visualized left lower leg. No subcutaneous emphysema or foreign body is seen. IMPRESSION: There is diffuse soft tissue edema throughout the visualized left lower leg. No subcutaneous emphysema or foreign body is seen. Mild to moderate osteoarthritic changes of the left knee and ankle. No acute fracture or dislocation is seen. XR RIGHT TIB/FIB, 2 views EXAM: XR Right Tibia and Fibula, 2 Views CLINICAL HISTORY: Reason for exam: leg swelling infection. TECHNIQUE: Frontal and lateral views of the right tibia and fibula. COMPARISON: No relevant prior studies available. FINDINGS: Bones/joints: Moderate lateral and severe medial knee joint space narrowing and osteophytosis consistent with osteoarthritis. No acute fracture. No dislocation. Soft tissues: Diffuse soft tissue edema throughout the right lower leg. No subcutaneous emphysema or foreign body is seen. IMPRESSION: 1. Diffuse soft tissue edema throughout the right lower leg. No subcutaneous emphysema or foreign body is seen. 2. Moderate lateral and severe medial knee joint space narrowing and osteophytosis consistent with osteoarthritis. There are also mild osteoarthritic changes of the right ankle. No acute fracture or dislocation is seen. Medications Administered ER Medications Given: Normal saline 1L bolus Normal saline 1L bolus Zosyn 4.5g IV Vancomycin 2750mg IV Magnesium sulfate 2g IV ECG Rate (beats per minute): 117 Rhythm: atrial fibrillation Findings: + ST depression (anterolateral leads) Comparison ECG Date: from (October 02, 2016) Change: the following changes noted (atrial fibrillation replaced NSR) Code Status & VTE Plan Code Status Full VTE Prophylaxis Plan VTE Prophylaxis will be ordered: Yes PG Care Time/CCT Total # of Minutes Spent Total Time Spent with Patient: Total time spent is greater than 50% in coordination of care (as documented) at patient's floor/unit and/or counseling patient: Coding Level of Care Code 60971 INT INP/OBS CARE 3/75MIN Diagnoses Atrial fibrillation with RVR I48.91 Sepsis A41.9 Cellulitis L03.90
[2024-09-17] MEDS ORDERED: STAT IV Infusion **Titration per Protocol STA (00:13)
[2024-09-17] MEDS ORDERED: PROCHLORPERAZINE 5 MG in SYRINGE 4 ML IV ONE (00:32)
[2024-09-17] MEDS: SODIUM CHLORIDE 0.9% 1,000 ML IV ONE (00:40)
[2024-09-17] MEDS: NOREPINEPHRINE/D5W 4 MG/250 ML PLCT IV SCH (00:40)
--- NOTE | 2024-09-17 00:56 | XRay Report ---
Exam(s): XR CXR 1 VIEW EXAM: XR Chest, 1 View CLINICAL HISTORY: Reason for exam: Sepsis. TECHNIQUE: Frontal view of the chest. COMPARISON: September 29, 2016 FINDINGS: Lungs: Unremarkable. No consolidation. Pleural space: Unremarkable. No pneumothorax. Heart: The cardiac silhouette is mildly enlarged, exaggerated by body habitus, portable technique, an expiratory chest. Mediastinum: Unremarkable. Normal mediastinal contour. Bones/joints: Unremarkable. No acute fracture. Upper abdomen: Unremarkable as visualized. No pneumoperitoneum under the diaphragm. IMPRESSION: The cardiac silhouette is mildly enlarged, exaggerated by body habitus, portable technique, an expiratory chest. Electronically signed by: Yury Vargas MD 09/17/24 00:55 AM
--- NOTE | 2024-09-17 00:57 | XRay Report ---
Exam(s): XR LEFT TIB/FIB, 2 views EXAM: XR Left Tibia and Fibula, 2 Views CLINICAL HISTORY: Reason for exam: leg swelling infection. TECHNIQUE: Frontal and lateral views of the left tibia and fibula. COMPARISON: No relevant prior studies available. FINDINGS: Bones/joints: Severe narrowing and mild osteophytosis of the medial joint space as well as mild narrowing and osteophytosis of the lateral joint space and patellofemoral joint space consistent with osteoarthritis of the left knee. Mild degenerative changes in the left ankle. No fracture or dislocation is seen. Soft tissues: There is diffuse soft tissue edema throughout the visualized left lower leg. No subcutaneous emphysema or foreign body is seen. IMPRESSION: There is diffuse soft tissue edema throughout the visualized left lower leg. No subcutaneous emphysema or foreign body is seen. Mild to moderate osteoarthritic changes of the left knee and ankle. No acute fracture or dislocation is seen. Electronically signed by: Yury Vargas MD 09/17/24 00:57 AM
--- NOTE | 2024-09-17 00:58 | XRay Report ---
Exam(s): XR RIGHT TIB/FIB, 2 views EXAM: XR Right Tibia and Fibula, 2 Views CLINICAL HISTORY: Reason for exam: leg swelling infection. TECHNIQUE: Frontal and lateral views of the right tibia and fibula. COMPARISON: No relevant prior studies available. FINDINGS: Bones/joints: Moderate lateral and severe medial knee joint space narrowing and osteophytosis consistent with osteoarthritis. No acute fracture. No dislocation. Soft tissues: Diffuse soft tissue edema throughout the right lower leg. No subcutaneous emphysema or foreign body is seen. IMPRESSION: 1. Diffuse soft tissue edema throughout the right lower leg. No subcutaneous emphysema or foreign body is seen. 2. Moderate lateral and severe medial knee joint space narrowing and osteophytosis consistent with osteoarthritis. There are also mild osteoarthritic changes of the right ankle. No acute fracture or dislocation is seen. Electronically signed by: Yury Vargas MD 09/17/24 00:58 AM
[2024-09-17] MEDS: PROCHLORPERAZINE 5 MG/ML 2 ML VIAL IV STA (02:01)
[2024-09-17] MEDS: OPTIRAY 320 125ml IV ONE (02:48)
[2024-09-17 02:49] LABS: Appearance Urine Cloudy (Clear); Bacteria Urine Automated None Seen (None Seen); Bilirubin Urine 1+ (Negative); Blood Urine Negative (Negative); Calcium Oxalate Crystals Urine Present (None Prsent); Color Urine Orange; Glucose Urine UA Negative (Negative); Ketones Urine 1+ (Negative); Leukocyte Esterase Urine Trace (Negative); Nitrite Urine Positive (Negative); Protein Urine 1+ (Negative); Specific Gravity Urine 1.034 (1.000-1.030); Urobilinogen Urine Negative (Negative); WBC Urine Automated 0-5 /hpf (0-5)
[2024-09-17] MEDS: ACETAMINOPHEN 325 MG TAB PO PRN (03:26)
--- NOTE | 2024-09-17 03:57 | CT Scan Report ---
EXAM: CT tib/fib LT w con CLINICAL HISTORY: left leg cellulitis ?abscess TECHNIQUE: Thin axial images post contrast (119 ml opti 320) of the left tibia/fibula were obtained along with coronal and sagittal reconstructions. One of the following dose reduction techniques were utilized for this exam: Automated exposure control, adjustment of the mA and/or kV according to patient size, and use of iterative reconstruction. COMPARISON: None. FINDINGS: Bones: Normal alignment of the lower femur, tibia, fibula, and patella. No fractures or dislocations. No lytic or sclerotic lesions. No evidence of bone marrow edema. No osteomyelitis of the underlying bone. Joint Space: Narrowed knee joint space with marginal osteophytes and subchondral sclerosis denoting degenerative changes Soft Tissues: Diffuse skin / subcutaneous tissue edema and thickening of the left lower leg are suggestive of cellulitis, with no localized fluid collection or abscess formation. Similar and to a lesser extent, changes are noted in the visualized parts of the right leg. Patent venous blood flow and visualized vasculature. No thrombosis. IMPRESSION: 1. Diffuse skin / subcutaneous tissue edema and thickening of the left lower leg, suggestive of cellulitis, no localized fluid collection or abscess formation. 2. Similar and to a lesser extent, changes are noted in the visualized parts of the right leg. 3. No osteomyelitis of the underlying bone 4. Knee osteoarthritic changes Electronically signed by Jose Maria Adams 09-17-2024 03:57 AM
--- NOTE | 2024-09-17 03:58 | CT Scan Report ---
EXAM: CT femur LT w con CLINICAL HISTORY: left leg swelling, cellulitis ?abscess TECHNIQUE: Multislice CT was performed for the left hip with contrast (119 ml opti 320) then multiplanar reconstruction in sagittal and coronal planes. Images were sent through PACs for interpretation. One of the following dose reduction techniques was utilized for this exam: Automated exposure control, adjustment of the mA and/or kV according to patient size, and use of iterative reconstruction. CTDI: mGy DLP: mGy*cm. COMPARISON: No prior images for comparison. FINDINGS: Soft Tissues: Diffuse subcutaneous fat swelling and edema of both thighs, mainly along the medial aspects with ill definitions of the epimuscular fascia. No loculated collections or intramusclar extensions however proper soft tissue assessment requires MRI. Bones: Normal alignment of the femoral heads, necks, and acetabula. Signs of chronic advanced knee osteoarthritic changes with genu vara. No fractures, lytic, or sclerotic lesions. No evidence of avascular necrosis of the femoral heads. No signs of hip septic arthritis or bony erosive changes. Vascular Structures: Normal opacification of the visualized arteries and veins. No evidence of aneurysm, thrombosis, or significant vascular abnormalities. Prominent left axillary lymph nodes. IMPRESSION: 1. Diffuse subcutaneous fat swelling and edema of both thighs, mainly along the medial aspects, likely due to inflammatory process (cellulitis), other differential is due to generalized body edema. For clinical correlations. 2. No localized collections. 3. Osteoarthritic changes of left knee joint. Electronically signed by Jose Maria Adams 09-17-2024 03:58 AM
[2024-09-17] MEDS: DAPTOmycin 850 MG in SYRINGE 0 ML IV SCH (04:02)
[2024-09-17] MEDS: PIPERACILLIN/TAZOBACTAM 4.5 GM/100 ML BAG IV SCH (04:02)
[2024-09-17] MEDS: LACTATED RINGER'S 500 ML IV ONE (04:20)
[2024-09-17] MEDS: LACTATED RINGER'S 1,000 ML IV STA (04:23)
--- NOTE | 2024-09-17 07:35 | Hospitalist Progress Note ---
Date of Service September 17, 2024 Assessment & Plan (1) Atrial fibrillation with RVR: (2) Sepsis: (3) Cellulitis: Plan 58 year old male with chronic lymphedema admitted with left leg cellulitis, sepsis, a. fib RVR #Sepsis / left leg cellulitis / bilateral leg ulceration underlying bilateral lymphedema and hyperkeratosis Remains septic. blood pressure improved, tachycardic with A-fib but rates reasonable and less than 120, high fever this morning, lactate remains in low twos. Blood cultures positive for gram-positive cocci in chains consistent with Streptococcus Repeat procal and lactate - lactate stable mildly elevated, Pro-Alejandro still pending Continue pip-tazo and daptomycin CT LE with contrast - reviewed - no fluid collections, compatible with cellulitis especially of LLE take cultures of bilateral lower extremity wounds and urine Consult wound care #A. fib RVR Previously diagnosed however patient reports paroxysmal Continue anticoagulation with Eliquis 5mg PO BID continue holding metoprolol, BP trend is improving but still borderline heart rate acceptable at less than 120 # nausea vomiting and an episode of diarrhea no abdominal pain, abdominal exam benign, LFTs are unremarkable - treated with Compazine, monitor for now, further evaluation if persisting. Add probiotic #Chronic HFpEF # mildly elevated high-sensitivity troponin trending up from 40s to 60s this morning, no evidence of acute coronary syndrome probably myocardial demand ischemia caused by sepsis appears relatively euvolemic continuing IV fluids for sepsis, diuretics held TTE completed and reading is pending #HTN Hold metoprolol, torsemide, losartan #Hyperlipidemia Hold rosuvastatin while on daptomycin hypomag - replaced IV in ED, 1.8 today abnormal UA, but also contaminated and no culture submitted, no bacteria. repeat UA and culture from catheter specimen mainly to see if any resistant organism grows albumin low, also low in 2020. 1+ proteinuria on UA suspect malnutrition macrocytosis depression B12, TSH, B1, folate. folate normal but B12 is low normal around 300 probably deficient, TSH and B1 pending - replace B12 empirically with 1000 mg IM x 7 days, replace B1 empirically with 500 mg IV every 8 hours x 48 hours morbid obesity BMI 58 obstructive sleep apneahe says that he has this is not using CPAP has an appointment for sleep study this summer. At bedtime CPAP/BiPAP order VTE Prophylaxis - Jeromy will need PT OT when more stable, was too weak to stand on day of admission remains severely ill and significant risk of clinical decompensation Admission and Anticipated Discharge Date Admission Date: September 16, 2024 Subjective some nausea and vomiting this am and an episode of diarrhea. no abdominal pain left leg pain improved a little bit. Overall doesn't have a lot of leg pain. pus on legs apx 2 weeks feeling really bad last several days not short of breath and no chest pain Physical Exam 2 Physical Exam: Last 24h vitals reviewed GEN: lying in bed, awake/alert HEENT: pupils equal, sclerae anicteric, moist MM RESP: normal WOB, CTAB anteriorly CV: reg no mrg ABD: soft/nt/nd +BT : Does not seem to have any significant scrotal or groin erythema SKIN: warm and dry, no generalized rashes, very red erythema to entirety of left leg. Apparent on upper leg and thigh all the way up to the groin fold. Both lower legs with severe lymphedema hyperkeratosis and pus lower anterior shins NEURO: AOx person, place, and situation. Face symmetric, speech normal, moves 4 ext spontaneously and equally Results & Data Results & Data Vital Signs (Past 12 Hours) Vital Signs Temp Pulse Pulse Resp BP BP Pulse Ox 09/17/24 06:12 106 H 09/17/24 05:01 36.9 C 09/17/24 03:32 09/17/24 03:32 38.9 C H 121 H 24 99/63 L 99 09/17/24 03:15 114 H 09/17/24 02:30 95 09/17/24 02:12 0 L 16 91/61 L 76 L 09/17/24 02:01 126/97 09/17/24 01:48 107 H 27 H 109/45 L 96 09/17/24 01:45 103 H 35 H 109/45 L 100 09/17/24 01:33 97 H 27 H 89/71 L 97 09/17/24 01:15 90/69 L 09/17/24 01:15 107 H 32 H 90/69 L 98 09/17/24 00:45 97/47 L 09/17/24 00:15 112 H 32 H 107/60 100 09/17/24 00:03 110 H 32 H 84/44 L 100 09/16/24 23:46 114 H 23 92/51 L 92 09/16/24 23:05 38.6 C H 09/16/24 23:03 98/47 L 09/16/24 23:00 115 H 32 H 98/47 L 99 09/16/24 22:21 106 H 36 H 118/57 L 96 09/16/24 22:12 96/54 L 98 09/16/24 22:09 109 H 34 H 73/42 L 95 09/16/24 21:48 117 H 35 H 92/50 L 100 09/16/24 21:44 118 H 09/16/24 21:34 38.8 C H 112 H 24 99/50 L 92 O2 Del Method O2 Flow Rate 09/17/24 06:12 09/17/24 05:01 09/17/24 03:32 Nasal Cannula 3 09/17/24 03:32 Nasal Cannula 4 09/17/24 03:15 09/17/24 02:30 09/17/24 02:12 09/17/24 02:01 09/17/24 01:48 09/17/24 01:45 09/17/24 01:33 09/17/24 01:15 09/17/24 01:15 09/17/24 00:45 09/17/24 00:15 09/17/24 00:03 09/16/24 23:46 Room Air 09/16/24 23:05 09/16/24 23:03 09/16/24 23:00 Nasal Cannula 4 09/16/24 22:21 Nasal Cannula 4 09/16/24 22:12 Oxymask 6 09/16/24 22:09 Oxymask 6 09/16/24 21:48 Non-rebreather 10 09/16/24 21:44 09/16/24 21:34 Nebulizer 15 Laboratory Results 09/17/24 07:12 09/17/24 07:12 PG Care Time/CCT Total # of Minutes Spent Total Time Spent with Patient: Total time spent is greater than 50% in coordination of care (as documented) at patient's floor/unit and/or counseling patient: Coding Level of Care Code 53505 SUB INP/OBS CARE 3/50MIN Diagnoses Atrial fibrillation with RVR I48.91 Sepsis A41.9 Cellulitis L03.90
[2024-09-17 07:53] LABS: Hematocrit (blood only) 32.1 % (42.0-52.0); Hemoglobin 10.8 g/dl (14.0-18.0); Mean Corpuscular Hemoglobin 35.8 pg (25.0-34.0); Mean Corpuscular Hgb Conc 33.6 g/dL (32.0-36.0); Mean Corpuscular Volume 106.3 fL (80.0-100.0); Mean Platelet Volume 8.8 fL (9.4-12.4); Platelet Count 197 K/uL (130-400); RDW Coefficient of Variation 14.6 % (11.5-14.5); RDW Standard Deviation 56.6 fL (36.4-46.3); Red Blood Count 3.02 M/uL (4.70-6.10)
[2024-09-17 08:09] LABS: Albumin Globulin Ratio 0.7 (0.9-2); Albumin Level 2.5 gm/dl (3.4-5.0); BUN Creatinine Ratio 12.2 (10-20); Bilirubin,Total 0.8 mg/dl (0.2-1.0); Calcium 7.9 mg/dl (8.6-10.3); Creatinine Clr Calc Pharmacy 115.3 ml/min; Globulin 3.6 gm/dl (2.5-4.0); Magnesium 1.8 mg/dl (1.7-2.4); Potassium 3.8 mmol/L (3.5-5.1); Total Protein 6.1 gm/dl (6.0-8.3)
[2024-09-17 08:13] LABS: Folate (Folic Acid),Ser orPlas 21.9 ng/ml (>5.38)
[2024-09-17 08:17] LABS: Basophils # (auto) 0.03 K/uL (0.00-0.20); Basophils % (auto) 0.3 %; Immature Granulocytes # (auto) 0.08 K/uL (0.01-0.20); Immature Granulocytes % (auto) 0.7 %; Lymphocytes % (auto) 13.9 %; Monocytes # (auto) 0.58 K/uL (0.11-0.59); Monocytes % (auto) 5.4 %; Neutrophils % (auto) 79.7 %; White Blood Count 10.79 K/ul (4.8-10.8)
[2024-09-17 10:29] LABS: A calco-baum cmplx NotReported Not Detected (NotDetected); Bact fragilis Not Reported Not Detected (NotDetected); Blood Culture Id Panel See PCR Comment (NotDetected); C auris Not Reported Not Detected (NotDetected); Calbicans Not Reported Not Detected (NotDetected); Candida glabrata Not Reported Not Detected (NotDetected); Candida krusei Not Reported Not Detected (NotDetected); Cneoformans/gatti Not Reported Not Detected (NotDetected); Cparapsilosis Not Reported Not Detected (NotDetected); Ctropicalis Not Reported Not Detected (NotDetected); E cloacae compx Not Reported Not Detected (NotDetected); Efaecalis Not Reported Not Detected (NotDetected); Efaecium Not Reported Not Detected (NotDetected); Enterobacterales Not Reported Not Detected (NotDetected); Escherichia coli Not Reported Not Detected (NotDetected); H influenzae Not Reported Not Detected (NotDetected); K aerogenes Not Reported Not Detected (NotDetected); Koxytoca Not Reported Not Detected (NotDetected); Kpneumoniae grp Not Reported Not Detected (NotDetected); Lmonocyt Not Reported Not Detected (NotDetected); N meningitidis Not Reported Not Detected (NotDetected); P aeruginosa Not Reported Not Detected (NotDetected); Proteus spp Not Reported Not Detected (NotDetected); Salmonella spp Not Reported Not Detected (NotDetected); Staph lugdunensis Not Reported Not Detected (NotDetected); Staph spp. Not Reported Not Detected (NotDetected); Staphaureus Not Reported Not Detected (NotDetected); Staphepi Not Reported Not Detected (NotDetected); Stenmaltophilia Not Reported Not Detected (NotDetected); Strep agal(GrpB) Not Reported Not Detected (NotDetected); Strep pneum Not Reported Not Detected (NotDetected); Strep pyog (GrpA) Not Reported Not Detected (NotDetected); Strep spp Not Reported DETECTED (NotDetected)
[2024-09-17] MEDS: PROCHLORPERAZINE 5 MG in SYRINGE 4 ML IV PRN (10:33)
[2024-09-17 10:56] LABS: Streptococcus spp DETECTED (NotDetected)
[2024-09-17] MEDS: APIXABAN 5 MG TABLET PO SCH (11:36)
[2024-09-17] MEDS: THIAMINE HCL 500 MG in SODIUM CHLORIDE 0.9% 50 ML IV SCH (13:33)
[2024-09-17 14:11] LABS: Appearance Urine Clear (Clear); Bilirubin Urine Negative (Negative); Blood Urine 3+ (Negative); Color Urine Yellow; Glucose Urine UA Negative (Negative); Ketones Urine Negative (Negative); Leukocyte Esterase Urine Negative (Negative); Nitrite Urine Negative (Negative); Protein Urine 1+ (Negative); Specific Gravity Urine >= 1.030 (1.000-1.030); Urobilinogen Urine Negative (Negative); pH Urine 5.5 (4.5-7.5)
[2024-09-17 15:00] LABS: Bacteria Urine None Seen (None Seen); Epithelial Cell Urine 0-2 /hpf (0-2); WBC Urine 0-5 /hpf (0-5)
[2024-09-17 19:32] LABS: BUN Creatinine Ratio 15.5 (10-20); Calcium 7.9 mg/dl (8.6-10.3); Creatinine Clr Calc Pharmacy 128.9 ml/min; Potassium 3.3 mmol/L (3.5-5.1)
[2024-09-17 19:47] LABS: Troponin I High Sensitivity 51.7 pg/ml (0-20)
[2024-09-18 06:59] LABS: Hematocrit (blood only) 30.8 % (42.0-52.0); Hemoglobin 10.2 g/dl (14.0-18.0); Mean Corpuscular Hemoglobin 35.5 pg (25.0-34.0); Mean Corpuscular Hgb Conc 33.1 g/dL (32.0-36.0); Mean Corpuscular Volume 107.3 fL (80.0-100.0); Platelet Count 183 K/uL (130-400); RDW Coefficient of Variation 14.2 % (11.5-14.5); RDW Standard Deviation 56.7 fL (36.4-46.3); Red Blood Count 2.87 M/uL (4.70-6.10); White Blood Count 9.55 K/ul (4.8-10.8)
[2024-09-18 07:25] LABS: Albumin Globulin Ratio 0.7 (0.9-2); Albumin Level 2.5 gm/dl (3.4-5.0); BUN Creatinine Ratio 17.4 (10-20); Bilirubin,Total 0.6 mg/dl (0.2-1.0); Calcium 8.2 mg/dl (8.6-10.3); Globulin 3.8 gm/dl (2.5-4.0); Magnesium 1.9 mg/dl (1.7-2.4); Potassium 3.7 mmol/L (3.5-5.1); Total Protein 6.3 gm/dl (6.0-8.3)
[2024-09-18 07:39] LABS: Thyroid Stimulating Hormone 3.271 uIu/ml (0.300-4.500)
[2024-09-18 08:59] LABS: Estimated Average Glucose 120 mg/dl; Hemoglobin A1C 5.8 % (4.5-5.6)
--- NOTE | 2024-09-18 09:12 | Electrocardiogram Report ---
Test Reason : Blood Pressure : */* mmHG Vent. Rate : 117 BPM Atrial Rate : * BPM P-R Int : * ms QRS Dur : 76 ms QT Int : 296 ms P-R-T Axes : * 65 63 degrees QTcB Int : 412 ms Atrial fibrillation with rapid ventricular response Nonspecific ST abnormality Abnormal ECG When compared with ECG of 02-Oct-2016 17:02, Atrial fibrillation has replaced Sinus rhythm Vent. rate has increased by 54 bpm QRS duration has decreased ST now depressed in Anterolateral leads T wave amplitude has decreased in Anterolateral leads Confirmed by Jessica Melchor (Arturo) on 09/18/2024 9:12:18 AM Referred By: REFERRED SELF Confirmed By: Jessica Melchor
[2024-09-18] MEDS: ADVANCED PROBIOTIC 625 MG CAPSULE PO SCH (09:40)
[2024-09-18] MEDS: CYANOCOBALAMIN 1000 MCG/ML VIAL IM SCH (09:40)
--- NOTE | 2024-09-18 15:21 | Hospitalist Progress Note ---
Date of Service September 18, 2024 Assessment & Plan (1) Sepsis: (2) Cellulitis: (3) Atrial fibrillation with RVR: Plan 58 year old male with chronic lymphedema admitted with left leg cellulitis, sepsis, a. fib RVR #Sepsis / left leg cellulitis / bilateral leg ulceration # streptococcal bacteremia underlying bilateral lymphedema and hyperkeratosis CT LE with contrast - no fluid collections, compatible with cellulitis especially of LLE Remains septic. however has improved. on the balance blood pressures have improved and tachycardia has improved, however, he is hypotensive at 88/53 currently and I ordered a 1 L saline bolus. Fever may have resolved Blood cultures positive for Streptococcus Continue pip-tazo and stop daptomycin. surface wound cultures without MRSA, these were taken 24 hours after he was already on antibiotics however. repeat urinalysis is negative Consult wound care #A. fib RVR Previously diagnosed however patient reports paroxysmal Continue anticoagulation with Eliquis 5mg PO BID continue holding metoprolol, BP remains low heart rate acceptable at less than 120 # nausea vomiting and an episode of diarrhea no abdominal pain, abdominal exam benign, LFTs are unremarkable - potentially had a gastroenteritis, ordered stool BioFire panel however he has not had any further stools today - continues to have no abdominal pain and abdomen is nontender. Eating solid food and no further emesis #Chronic HFpEF # mildly elevated high-sensitivity troponin trending peaked in 60s now downtrending, no evidence of acute coronary syndrome probably myocardial demand ischemia caused by sepsis diuretics held TTE was reassuring with normal EF, no significant valvular disease, no regional wall motion abnormalities #HTN Hold metoprolol, torsemide, losartan #Hyperlipidemia Hold rosuvastatin while on daptomycin hypomag - replaced and resolved albumin low, also low in 2019. 1+ proteinuria on UA suspect malnutrition macrocytosis depression B12, TSH, B1, folate. folate normal but B12 is low normal around 300 probably deficient, TSH was normal and B1 pending - replace B12 empirically with 1000 mg IM x 7 days, replace B1 empirically with 500 mg IV every 8 hours x 48 hours morbid obesity BMI 58 obstructive sleep apneahe says that he has this is not using CPAP has an appointment for sleep study this summer. At bedtime CPAP/BiPAP order VTE Prophylaxis - Jeromy will need PT OT when more stable, was too weak to stand on day of admission remains severely ill and significant risk of clinical decompensation Admission and Anticipated Discharge Date Admission Date: September 16, 2024 Subjective Clayton is definitely feeling better today he did have diarrhea overnight and early this morning but none since then and he ate some solid food for breakfast without nausea and vomiting. He does not have any abdominal pain. His legs are not particularly painful Physical Exam 2 Physical Exam: Last 24h vitals reviewed GEN: awake and alert looks better HEENT: pupils equal, sclerae anicteric, moist MM RESP: normal WOB, CTAB anteriorly CV: reg no mrg ABD: soft/nt/nd +BT : no penile/scrotal erythema SKIN: warm and dry, no generalized rashes, very red erythema to entirety of left leg - now darkening in color. Apparent on upper leg and thigh all the way up to the groin fold. Both lower legs with severe lymphedema hyperkeratosis. pus/drainage has resolved NEURO: AOx person, place, and situation. Face symmetric, speech normal, moves 4 ext spontaneously and equally Results & Data Results & Data Vital Signs (Past 12 Hours) Vital Signs Temp Pulse Pulse Resp BP Pulse Ox O2 Del Method 09/18/24 15:08 36.9 C 106 H 18 88/53 L 96 Room Air 09/18/24 14:32 116 H 09/18/24 10:30 36.7 C 119 H 18 104/63 98 Room Air 09/18/24 09:24 103 H 09/18/24 08:00 Room Air 09/18/24 07:28 36.7 C 107 H 18 96/73 L 98 Room Air Laboratory Results 09/18/24 06:39 09/18/24 06:39 troponin 51 which is downtrending, TSH 3.2, albumin 2.5 PG Care Time/CCT Total # of Minutes Spent Total Time Spent with Patient: Total time spent is greater than 50% in coordination of care (as documented) at patient's floor/unit and/or counseling patient: Coding Level of Care Code 58878 SUB INP/OBS CARE 3/50MIN Diagnoses Sepsis A41.9 Cellulitis L03.90 Atrial fibrillation with RVR I48.91
[2024-09-18] MEDS: SODIUM CHLORIDE 0.9% 1,000 ML IV ONE (15:56)
[2024-09-18] MEDS: POTASSIUM CHLORIDE CRTAB 20 MEQ TABCR PO ONE (16:31)
--- NOTE | 2024-09-18 18:33 | Communication Note ---
Date of Service: September 18, 2024 1L saline bolus this afternoon for mild hypotension. Had diarrhea overnight, may repeat liter bolus and/or start continuous fluids if remaining hypotensive.
--- NOTE | 2024-09-19 07:41 | Hospitalist Progress Note ---
Date of Service September 19, 2024 Assessment & Plan (1) Sepsis: (2) Cellulitis: (3) Atrial fibrillation with RVR: Plan 58 year old male with chronic lymphedema admitted with sepsis due to Streptococcus left leg cellulitis and bacteremia, bilateral lower extremity wound infections, a. fib RVR # Sepsis due to strep dysgalactiae bacteremia and LLE cellulitis, bilateral LE wound infections with strep dysgalactiae and probably polymicrobial # bilateral lymphedema and elephantiasis nostras verrucosa CT LE with contrast - no fluid collections, compatible with cellulitis especially of LLE. Sepsis is starting to resolve - tachycardia and hypotension improved, fever resolved. Daptomycin stopped 09/18 -continue pip-tazo - this will cover the strep -severe LLE cellulitis to the hip - appearance evolving as expected -consult ID regarding ongoing abx coverage for the wound infections, duration of strep treatment #A. fib RVR Previously diagnosed however patient reports paroxysmal Continue anticoagulation with Eliquis 5mg PO BID continue holding metoprolol, BP remains low heart rate acceptable at less than 120 - improving # nausea vomiting and an episode of diarrhea no abdominal pain, abdominal exam benign, LFTs are unremarkable - mild AST elevation. improved - potentially had a gastroenteritis, ordered stool BioFire panel however he has not had any further stools so not collected - continues to have no abdominal pain and abdomen is nontender. Eating solid food and no further emesis - probiotic #Chronic HFpEF #Myocardial demand ischemia due to sepsis - mildly elevated high-sensitivity troponin peaked in 60s now downtrending, no evidence of acute coronary syndrome - diuretics held - TTE was reassuring with normal EF, no significant valvular disease, no regional wall motion abnormalities #HTN Hold metoprolol, torsemide, losartan #Hyperlipidemia Held rosuvastatin while on daptomycin - resume tomorrow # nutritional / mood concerns albumin low, also low in 2020. 1+ proteinuria on UA suspect malnutrition prediabetes morbid obesity BMI 58 macrocytosis depression hypomag and hypokalemia - replaced and resolved B12, TSH, B1, folate. folate normal but B12 is low normal around 300 probably deficient, TSH was normal and B1 pending - replace B12 empirically with 1000 mg IM x 7 days, replace B1 empirically with 500 mg IV every 8 hours x 48 hours - consult RD - needs discussion about medication for mood disorder - has been increasingly withdrawn and depressed leading up to this. he has been very embarrassed about the appearance and odor of his legs which has been a barrier to him seeking care. # obstructive sleep apneahe says that he has this is not using CPAP has an appointment for sleep study this summer. At bedtime CPAP/BiPAP order VTE Prophylaxis - Eliquis ordered PT/OT, was too weak to stand on day of admission remains severely ill and At risk of clinical decompensation, though significantly improved since admission Admission and Anticipated Discharge Date Admission Date: September 16, 2024 Subjective Sepsis improved compared to yesterday GI symptoms have abated - no further vomiting or diarrhea, tolerating general diet Clayton does feel better, no shortness of breath chest pain or abdominal pain. Legs are not painful. Continues to have erythema of his left leg all the way up to his groin fold. lower extremities below the knee are no longer draining pus Physical Exam 2 Physical Exam: Last 24h vitals reviewed GEN: awake and working on bath with nursing staff HEENT: pupils equal, sclerae anicteric, moist MM RESP: normal WOB, CTAB anteriorly CV: reg no mrg ABD: soft/nt/nd +BT : no penile/scrotal erythema SKIN: warm and dry, no generalized rashes, very red erythema to entirety of left leg - now darkening in color with fading in the area between the knee and upper thigh. Both lower legs with severe lymphedema hyperkeratosis, verrucous appearing. pus/drainage has resolved NEURO: AOx person, place, and situation. Face symmetric, speech normal, moves 4 ext spontaneously and equally Results & Data Results & Data Vital Signs (Past 12 Hours) Vital Signs Temp Pulse Pulse Resp BP Pulse Ox O2 Del Method 09/19/24 06:00 36.7 C 106 H 18 112/72 97 Room Air 09/19/24 01:49 97 H 09/18/24 22:48 36.8 C 98 H 18 103/66 95 Room Air 09/18/24 20:46 Room Air 09/18/24 20:01 36.9 C 108 H 18 118/73 97 Room Air Laboratory Results 09/18/24 06:39 09/19/24 08:01 Micro - strep dysgalactiae bacteremia - also isolated from bilateral LE wound cultures PG Care Time/CCT Total # of Minutes Spent Total Time Spent with Patient: Total time spent is greater than 50% in coordination of care (as documented) at patient's floor/unit and/or counseling patient: Coding Level of Care Code 16663 SUB INP/OBS CARE 350MIN Diagnoses Sepsis A41.9 Cellulitis L03.90 Atrial fibrillation with RVR I48.91
[2024-09-19 08:47] LABS: BUN Creatinine Ratio 17.1 (10-20); Calcium 8.1 mg/dl (8.6-10.3); Creatinine Clr Calc Pharmacy 200.3 ml/min; Potassium 3.8 mmol/L (3.5-5.1)
--- NOTE | 2024-09-19 09:51 | Infectious Disease Consult ---
Date of Consultation September 19, 2024 Assessment & Plan (1) Cellulitis: (2) Lymphedema: Plan Problems: #Bilateral lower extremity chronic lymphedema c/b cellulitis #Strep dysgalactiae bacteremia Micro: 09/19 BCx x2: pending 09/17 LLE wound cx: Strep dysgalactiae, Alcaligenes faecalis 2 morphologies (S cefepime, TMP/SMX, pip-tazo. R tetra), moderate counts of probable skin sinai 09/17 RLE wound cx: Strep dysgalactiae, Alcaligenes faecalis 09/16 BCx x2: Strep dysgalactiae in 3/4 bottles (S amp, cefepime, cefotaxime, ceftriaxone, levo, penicillin, tetra, vanc. R clinda) Abx: Vanc 09/16 Dapto 09/16 - 09/17 Pip-tazo 09/16 - present 58 yo M with HTN, HLD, chronic BLE lymphedema who presented on 09/16 with fever, vomiting, generalized weakness, BLE swelling and erythema, drainage, admitted with BLE cellulitis c/b Strep dysgalactiae bacteremia. On presentation, pt was febrile to 38.8, HR 112, BP 99/50, 92% on 15 L. He was quickly weaned to room air. Labs showed WBC 12.49, Cr 1.08, lactate 2.6. RPP negative. BWas given vanc and pip-tazo in the ED. Vanc switched to dapto on admission. CT LLE with contrast showed diffuse skin/subcutaneous tissue edema and thickening suggestive of cellulitis, no localized fluid collection or absce ss formation. Similar and to a lesser extent, changes are noted in the visualized parts of the RLE. No osteomyelitis of underlying bone. Blood cultures grew Strep dysgalactiae in 3/4 bottles. A wound culture was obtained from BLE on 09/17, which grew Alcaligenes faecalis and Strep dysgalactiae. TTE on 09/17 without vegetations, although PV, MV, TV not well visualized. Pt was recently referred to the wound care clinic but pt did not show. Pt reports that he manages his chronic LE swelling with torsemide and compression. Discussion: Pt with Strep dysgalactiae bacteremia 2/2 bilateral lower extremity cellulitis. Strep dysgalactiae is less frequently a cause of endocarditis. Will follow-up repeat blood culture. Recommendations: - Can continue pip-tazo while inpatient to cover Strep dysgalactiae and Alcaligenes faecalis - If 09/19 blood cultures remain negative--on discharge, can transition to amox/clav 875 mg PO BID and TMP/SMX 2 DS tabs PO BID through 09/29 to complete a 14 day course Will follow peripherally for 5/ blood cultures Consultation Information Consultation was provided via telemedicine using two-way real-time interactive telecommunication between the patient and the telemedicine provider. For the duration of the visit, the provider was performing the assessment from a different facility than the patient. This includesuse of bluetooth stethoscope forauscultationperformed by the telepresenter that the telemedicine provider can hear if described in the physical exam. Corrugator Operator contact information: Please call [facility] [phone]. (Phone Number For Physician Use Only) After establishing a telemedicine visit, patient was: Patient was verified with two unique identifiers, Patient/authorized rep acknowledged consent and understanding and Gave permission to continue telehealth session Time Spent with Patient: Initial => 40 min History of Present Illness Reason for Consultation: Strep bacteremia, polymicrobial wound infection Attending Physician: Jackie Larson MD History of Present Illness 58 yo M with HTN, HLD, chronic BLE lymphedema who presented on 09/16 with fever, vomiting, generalized weakness, LLE swelling and erythema, drainage from bilateral LE. On presentation, pt was febrile to 38.8, HR 112, BP 99/50, 92% on 15 L. He was quickly weaned to room air. Labs showed WBC 12.49, CR 1.08, lactate 2.6. RPP negative. Bilateral tib/fib XR with diffuse soft tissue edema. Was given vanc and pip-tazo in the ED. Vanc switched to dapto on admission. CT LLE with contrast showed diffuse skin/subcutaneous tissue edema and thickening suggestive of cellulitis, no localized fluid collection or abscess formation. Similar and to a lesser extent, changes are noted in the visualized parts of the RLE. No osteomyelitis of underlying bone. Blood cultures grew Strep dysgalactiae in 3/4 bottles. A wound culture was obtained from BLE on 09/17, which grew Alcaligenes faecalis and Strep dysgalactiae. Pt was recently referred to the wound care clinic but pt did not show. Pt reports that he manages his chronic LE swelling with torsemide and compression. Allergies Allergy/AdvReac Type Severity Reaction Status Date / Time ondansetron [From Zofran] Allergy Intermediate Nausea Verified 09/16/24 22:19 Home Medications Medication Instructions Recorded Confirmed Type multivitamin 1 tab PO DAILY 08/17/24 09/16/24 History apixaban 5 mg tablet (Eliquis) 5 mg PO BID 90 days #180 tabs 08/30/24 09/16/24 Rx losartan 25 mg tablet 25 mg PO QAM 90 days #90 tabs 08/30/24 09/16/24 Rx metoprolol succinate 100 mg 100 mg PO QAM 90 days #90 tabs 08/30/24 09/16/24 Rx tablet,extended release 24 hr rosuvastatin 20 mg tablet 20 mg PO DAILY 90 days #90 tabs 08/30/24 09/16/24 Rx torsemide 100 mg tablet 100 mg PO DAILY 90 days #90 tabs 08/30/24 09/16/24 Rx Patient History Medical History Hypertension History of COVID-19 last year > not hospitalized History of kidney stones Diastolic heart failure Sleep apnea possible? getting test on May 12 Dyslipidemia Atrial fibrillation dx approx 2 -3 yrs ago > no pacer > Jantoven > follows with Dr. Paiz Surgical History Hx of tympanostomy tubes History of colonoscopy History of tonsillectomy H/O umbilical hernia repair S/P laparoscopic appendectomy H/O lithotripsy Family History Mother Breast cancer Heart disease Kidney disease Sister Breast cancer Father Stroke Social History Smoking Status: Never smoker Second Hand Exposure: No; Do You Dip or Chew Tobacco: No; Hx Alcohol Use: No Hx Substance Use: No Preferred Language: Armenian Communication Ability: Effective Machine Presser Required: No Beliefs That Will Affect Care: None Current Living Situation: Alone Feels Safe at Home: Yes Safety Concerns: Feels Safe At This Time Assistive Devices: Cane Review of System A complete ROS was performed and is negative except as mentioned in the HPI. Physical Exam Physical Exam: GEN: Well-appearing, in NAD. RESP: No increased work of breathing SKIN: bilateral lower extremities with chronic lymphedema with cobblestone like papules/nodules on shins. Erythema of bilateral shins. NEURO: Alert and oriented. Answers all questions appropriately. Speech not slurred. PSYCH: Normal mood, affect appropriate. Results & Data Vital Signs (Past 12 Hours) Vital Signs Temp Pulse Pulse Resp BP Pulse Ox O2 Del Method 09/19/24 07:31 36.7 C 103 H 18 117/70 99 Room Air 09/19/24 06:00 36.7 C 106 H 18 112/72 97 Room Air 09/19/24 01:49 97 H 09/18/24 22:48 36.8 C 98 H 18 103/66 95 Room Air Laboratory Results [facility] 09/19/24 08:01 Sodium 137 Potassium 3.8 Chloride 106 Carbon Dioxide 26 BUN 12 Creatinine 0.70 Glucose 107 H Calcium 8.1 L Diagnostic Findings Chest X-Ray 09/16/24 21:34 Exam(s): XR CXR 1 VIEW EXAM: XR Chest, 1 View CLINICAL HISTORY: Reason for exam: Sepsis. TECHNIQUE: Frontal view of the chest. COMPARISON: September 29, 2016 FINDINGS: Lungs: Unremarkable. No consolidation. Pleural space: Unremarkable. No pneumothorax. Heart: The cardiac silhouette is mildly enlarged, exaggerated by body habitus, portable technique, an expiratory chest. Mediastinum: Unremarkable. Normal mediastinal contour. Bones/joints: Unremarkable. No acute fracture. Upper abdomen: Unremarkable as visualized. No pneumoperitoneum under the diaphragm. IMPRESSION: The cardiac silhouette is mildly enlarged, exaggerated by body habitus, portable technique, an expiratory chest. Electronically signed by: Yury Vargas MD 09/17/24 00:55 AM Tibia/Fibula X-Ray 09/16/24 21:35 Exam(s): XR LEFT TIB/FIB, 2 views EXAM: XR Left Tibia and Fibula, 2 Views CLINICAL HISTORY: Reason for exam: leg swelling infection. TECHNIQUE: Frontal and lateral views of the left tibia and fibula. COMPARISON: No relevant prior studies available. FINDINGS: Bones/joints: Severe narrowing and mild osteophytosis of the medial joint space as well as mild narrowing and osteophytosis of the lateral joint space and patellofemoral joint space consistent with osteoarthritis of the left knee. Mild degenerative changes in the left ankle. No fracture or dislocation is seen. Soft tissues: There is diffuse soft tissue edema throughout the visualized left lower leg. No subcutaneous emphysema or foreign body is seen. IMPRESSION: There is diffuse soft tissue edema throughout the visualized left lower leg. No subcutaneous emphysema or foreign body is seen. Mild to moderate osteoarthritic changes of the left knee and ankle. No acute fracture or dislocation is seen. Electronically signed by: Yury Vargas MD 09/17/24 00:57 AM Tibia/Fibula X-Ray 09/16/24 21:35 Exam(s): XR RIGHT TIB/FIB, 2 views EXAM: XR Right Tibia and Fibula, 2 Views CLINICAL HISTORY: Reason for exam: leg swelling infection. TECHNIQUE: Frontal and lateral views of the right tibia and fibula. COMPARISON: No relevant prior studies available. FINDINGS: Bones/joints: Moderate lateral and severe medial knee joint space narrowing and osteophytosis consistent with osteoarthritis. No acute fracture. No dislocation. Soft tissues: Diffuse soft tissue edema throughout the right lower leg. No subcutaneous emphysema or foreign body is seen. IMPRESSION: 1. Diffuse soft tissue edema throughout the right lower leg. No subcutaneous emphysema or foreign body is seen. 2. Moderate lateral and severe medial knee joint space narrowing and osteophytosis consistent with osteoarthritis. There are also mild osteoarthritic changes of the right ankle. No acute fracture or dislocation is seen. Electronically signed by: Yury Vargas MD 09/17/24 00:[address] 09/17/24 00:31 EXAM: CT femur LT w con CLINICAL HISTORY: left leg swelling, cellulitis ?abscess TECHNIQUE: Multislice CT was performed for the left hip with contrast (119 ml opti 320) then multiplanar reconstruction in sagittal and coronal planes. Images were sent through PACs for interpretation. One of the following dose reduction techniques was utilized for this exam: Automated exposure control, adjustment of the mA and/or kV according to patient size, and use of iterative reconstruction. CTDI: mGy DLP: mGy*cm. COMPARISON: No prior images for comparison. FINDINGS: Soft Tissues: Diffuse subcutaneous fat swelling and edema of both thighs, mainly along the medial aspects with ill definitions of the epimuscular fascia. No loculated collections or intramusclar extensions however proper soft tissue assessment requires MRI. Bones: Normal alignment of the femoral heads, necks, and acetabula. Signs of chronic advanced knee osteoarthritic changes with genu vara. No fractures, lytic, or sclerotic lesions. No evidence of avascular necrosis of the femoral heads. No signs of hip septic arthritis or bony erosive changes. Vascular Structures: Normal opacification of the visualized arteries and veins. No evidence of aneurysm, thrombosis, or significant vascular abnormalities. Prominent left axillary lymph nodes. IMPRESSION: 1. Diffuse subcutaneous fat swelling and edema of both thighs, mainly along the medial aspects, likely due to inflammatory process (cellulitis), other differential is due to generalized body edema. For clinical correlations. 2. No localized collections. 3. Osteoarthritic changes of left knee joint. Electronically signed by Jose Maria Adams 09-17-2024 03:[address] 09/17/24 01:08 EXAM: CT tib/fib LT w con CLINICAL HISTORY: left leg cellulitis ?abscess TECHNIQUE: Thin axial images post contrast (119 ml opti 320) of the left tibia/fibula were obtained along with coronal and sagittal reconstructions. One of the following dose reduction techniques were utilized for this exam: Automated exposure control, adjustment of the mA and/or kV according to patient size, and use of iterative reconstruction. COMPARISON: None. FINDINGS: Bones: Normal alignment of the lower femur, tibia, fibula, and patella. No fractures or dislocations. No lytic or sclerotic lesions. No evidence of bone marrow edema. No osteomyelitis of the underlying bone. Joint Space: Narrowed knee joint space with marginal osteophytes and subchondral sclerosis denoting degenerative changes Soft Tissues: Diffuse skin / subcutaneous tissue edema and thickening of the left lower leg are suggestive of cellulitis, with no localized fluid collection or abscess formation. Similar and to a lesser extent, changes are noted in the visualized parts of the right leg. Patent venous blood flow and visualized vasculature. No thrombosis. IMPRESSION: 1. Diffuse skin / subcutaneous tissue edema and thickening of the left lower leg, suggestive of cellulitis, no localized fluid collection or abscess formation. 2. Similar and to a lesser extent, changes are noted in the visualized parts of the right leg. 3. No osteomyelitis of the underlying bone 4. Knee osteoarthritic changes Electronically signed by Jose Maria Adams 09-17-2024 03:57 AM Medications Administered Current Inpatient Medications Acetaminophen (Acetaminophen 500 Mg Tab) 1,000 mg PO Q8H PRN PRN Reason: Pain or Fever Stop: 10/17/24 03:13 Apixaban (Apixaban 5 Mg Tablet) 5 mg PO BID [facility] Stop: 10/17/24 08:59 Last Admin: 09/19/24 09:36 Dose: 5 mg Cyanocobalamin (Cyanocobalamin 1000 Mcg/Ml Vial) 1,000 mcg IM QAM [facility] Stop: 10/25/24 08:59 Last Admin: 09/19/24 09:36 Dose: 1,000 mcg Piperacillin Sod/Tazobactam Sod (Zosyn) 4.5 gm in 100 mls @ 25 mls/hr IV Q8H [facility]; Protocol Stop: 09/24/24 03:59 Last Admin: 09/19/24 13:38 Dose: 25 mls/hr Prochlorperazine 5 mg/ Syringe 5 mls @ 5 mls/min IV Q6H PRN PRN Reason: Nausea And Vomiting Stop: 10/17/24 03:13 Last Admin: 09/17/24 21:06 Dose: 5 mls/min Thiamine HCl 500 mg/ Sodium (Chloride) 55 mls @ 210 mls/hr IV Q8H [facility] Stop: 09/20/24 05:16 Last Infusion: 09/19/24 13:58 Dose: Infused Lactobacillus Acidophilus (Advanced Probiotic 625 Mg Capsule) 1,250 mg PO DAILY [facility] Stop: 10/18/24 08:59 Last Admin: 09/19/24 09:36 Dose: 1,250 mg
[2024-09-20 06:42] LABS: Hematocrit (blood only) 30.7 % (42.0-52.0); Hemoglobin 10.5 g/dl (14.0-18.0); Mean Corpuscular Hemoglobin 35.6 pg (25.0-34.0); Mean Corpuscular Hgb Conc 34.2 g/dL (32.0-36.0); Mean Corpuscular Volume 104.1 fL (80.0-100.0); Mean Platelet Volume 8.8 fL (9.4-12.4); Platelet Count 170 K/uL (130-400); RDW Coefficient of Variation 13.9 % (11.5-14.5); RDW Standard Deviation 53.3 fL (36.4-46.3); Red Blood Count 2.95 M/uL (4.70-6.10); White Blood Count 9.47 K/ul (4.8-10.8)
[2024-09-20 07:18] LABS: Albumin Level 2.6 gm/dl (3.4-5.0); Bilirubin,Total 0.6 mg/dl (0.2-1.0); Potassium 3.9 mmol/L (3.5-5.1)
[2024-09-20 07:24] LABS: Albumin Globulin Ratio 0.6 (0.9-2); BUN Creatinine Ratio 16.4 (10-20); Creatinine Clr Calc Pharmacy 230.1 ml/min; Globulin 4.1 gm/dl (2.5-4.0); Total Protein 6.7 gm/dl (6.0-8.3)
--- NOTE | 2024-09-20 07:24 | Hospitalist Progress Note ---
Date of Service September 20, 2024 Assessment & Plan (1) Sepsis: (2) Cellulitis: (3) Atrial fibrillation with RVR: Plan 58 year old male with chronic lymphedema admitted with sepsis due to Streptococcus left leg cellulitis and bacteremia, bilateral lower extremity wound infections, a. fib RVR # Sepsis-resolving, due to strep dysgalactiae bacteremia and LLE cellulitis, bilateral LE wound infections with strep dysgalactiae and probably polymicrobial contributed to by bilateral lymphedema and elephantiasis nostras verru[place] CT LE with contrast - no fluid collections, compatible with cellulitis especially of LLE. Daptomycin stopped 09/18 - ID consult recommends continue pip-tazo while inpatient to cover Strep dysgalactiae and Alcaligenes faecalis - If 09/19 blood cultures remain negative--on discharge, can transition to amox/clav 875 mg PO BID and TMP/SMX 2 DS tabs PO BID through 09/29 to complete a 14 day course #A. fib RVR Previously diagnosed however patient reports paroxysmal Continue anticoagulation with Eliquis 5mg PO BID restart low dose metoprolol heart rate acceptable at less than 120 - improving # nausea vomiting and an episode of diarrhea-resolved -gastroenteritis, ordered stool Bio[employer] panel however he has not had any further stools so not collected - Eating solid food and no further emesis - probiotic #Chronic HFpEF #Myocardial demand ischemia due to sepsis - mildly elevated high-sensitivity troponin peaked in 60s now downtrending, no evidence of acute coronary syndrome - diuretics held - TTE was reassuring with normal EF, no significant valvular disease, no regional wall motion abnormalities #HTN Hold metoprolol, torsemide, losartan #Hyperlipidemia Held rosuvastatin while on daptomycin - resume tomorrow # nutritional / mood concerns albumin low, also low in 2019. 1+ proteinuria on UA suspect malnutrition prediabetes morbid obesity BMI 58 macrocytosis depression hypomag and hypokalemia - replaced and resolved B12, TSH, B1, folate. folate normal but B12 is low normal around 300 probably deficient, TSH was normal and B1 pending - replace B12 empirically with 1000 mg IM x 7 days, replace B1 empirically with 500 mg IV every 8 hours x 48 hours - consult RD - pt not open to antidepressant at this time or speaking to councellor # obstructive sleep apneahe says that he has this is not using CPAP has an appointment for sleep study this summer. At bedtime CPAP/BiPAP order VTE Prophylaxis - Eliquis ordered PT/OT, was too weak to stand on day of admission Admission and Anticipated Discharge Date Admission Date: September 16, 2024 Subjective pt feels improved, still leg swelling and redness. discussed depression at this time does not want to speak to councellor or start meds Physical Exam Physical Exam: pleasant and unlabored cardiac is regular, no sanna lungs are clear but diminished at bases legs with bilateral lymphedema, redness to left leg to hip, slight warmth Results & Data Results & Data Vital Signs (Past 12 Hours) Vital Signs Temp Pulse Pulse Resp BP Pulse Ox O2 Del Method 09/20/24 07:01 98.1 F 112 H 18 108/65 95 Room Air 09/20/24 03:31 98.8 F 111 H 18 122/72 96 Room Air 09/19/24 23:24 98.6 F 109 H 18 124/67 94 Room Air 09/19/24 23:15 107 H 09/19/24 22:55 Room Air Laboratory Results review cbc review chemistry PG Care Time/CCT Total # of Minutes Spent Total Time Spent with Patient: Total time spent is greater than 50% in coordination of care (as documented) at patient's floor/unit and/or counseling patient: Coding Level of Care Code 89117 SUB INP/OBS CARE 3/50MIN Diagnoses Sepsis A41.9 Cellulitis L03.90 Atrial fibrillation with RVR I48.91
[2024-09-20] MEDS: METOPROLOL TARTRATE 25 MG TAB PO SCH (20:32)
[2024-09-21 07:28] LABS: Albumin Globulin Ratio 0.7 (0.9-2); Albumin Level 2.6 gm/dl (3.4-5.0); BUN Creatinine Ratio 18.5 (10-20); Bilirubin,Total 0.7 mg/dl (0.2-1.0); Calcium 7.9 mg/dl (8.6-10.3); Potassium 3.9 mmol/L (3.5-5.1); Total Protein 6.6 gm/dl (6.0-8.3)
--- NOTE | 2024-09-21 13:12 | Hospitalist Progress Note ---
Date of Service September 21, 2024 Assessment & Plan (1) Bacteremia: (2) Sepsis: (3) Cellulitis: (4) Atrial fibrillation with RVR: (5) Lymphedema: (6) Demand ischemia of myocardium: (7) Elevated troponin: (8) Morbid obesity with BMI of 50.0-59.9, adult: (9) Hypertension: (10) Dyslipidemia: Plan 58yo male with severe, b/l chronic LE lymphedema, permanent a.fib, and morbid obesity admitted with sepsis due to left leg cellulitis and bacteremia. #Sepsis / bacteremia - -resolving -bacteremia was 2nd strep dysgalactiae -source - LLE cellulitis, bilateral LE wound infections -repeat blood cx's 09/19 negative -appreciate ID consult - recs: -cont zosyn while inpatient; at discharge transition to PO augmentin 875mg BID + bactrim DS 2 tabs BID through 09/29 (this will complete 14 days of Rx) -of note - no obvious septic L hip, etc #LLE cellulitis - -slowly improving on zosyn - day #5 of such today -CT LLE - no fluid collections, abscess, or nec fasc findings -ID consult appreciated; recommending to continue pip-tazo while inpatient to cover Strep dysgalactiae and Alcaligenes faecalis -at d/c transition to amox/clav 875 mg PO BID and TMP/SMX 2 DS tabs PO BID through 09/29 to complete a 14 days of Rx #A. fib RVR - -improved rates; RVR likely due to sepsis at time of admission -cont meto tartrate 25mg BID -cont Eliquis 5mg BID -h/o PAF, but has been in fib most of this stay # nausea vomiting and an episode of diarrhea - -earlier in the admission; now resolved & no recurrence #Chronic HFpEF - compensated #Myocardial demand ischemia - -elevated troponin 2nd to such; no evidence of ACS -demand ischemia 2nd to sepsis -peak trop 60s -echo - normal EF, no LV WMAs #HTN - -cont metoprolol tartrate BID -holding losartan -holding torsemide #Hyperlipidemia - -statin on hold for now #hypoalbuminemia - -AST was also elevated at presentation -with morbid obesity at risk of fatty liver and/or cirrhosis -check liver u/s while here -check CPK to make sure AST elevation wasn't from rhabdo # nutritional / mood concerns - -B12 level low-normal; on replacement for now -B1 level pending -?depression - will explore this in more detail with him #prediabetes - -a1c 5.8% -litigation 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 #morbid obesity BMI 50s - -would benefit from referral to our weight loss clinic with [facility]; will talk with him about such #lymphedema - -will inquire with Dr Santos from cards/vascular about options in the community #obstructive sleep apnea - -noncompliant with CPAP -has sleep study this summer -refusing NIV while here unfortunately DVT proph - eliquis 5mg BID sent message to pt's sister in law with update (pt gave permission for such) Admission and Anticipated Discharge Date Admission Date: September 16, 2024 Subjective tele - a.fib, rates upper 90s and low 100s patient reports working with PT today and felt a little dizzy with standing was able to get out to the chair with PT assistance each day feels a little better appetite improving but still not normal had some diarrhea earlier in the stay now improved no abd pain or vomiting left thigh still erythematous and sore does have some mild left low back pain and left lateral hip pain but no left groin pain lymphedema - saw a specialist for such years ago - had manual therapy for it, but didn't do it long, and that person's clinic is closed agreeable to rehab Review of Systems Review of Systems: gen - no fevers or chills cv - no chest pain pulm - no dyspnea at rest or cough GI - no N/V Physical Exam Physical Exam: gen - morbidly obese, NAD, sitting in chair comfortably neck - no JVD mouth - MMM heart - irregularly irregular, s1 s2, rate <100 lungs - decreased BS bases, otherwise CTA b/l abd - soft NT ND BS+ ext - massive lymphedema/elephantiasis appearance of both legs; lymphedema extends to distal thighs; pulses b/l feet 2+ skin - severe stasis changes - dark brown skin - extending from feet to knees with crusty appearance/hyperkeratosis of all areas; erythematous skin proximal anterior L thigh extending laterally musculo - log rolling of L hip does not cause pain; active/passive flexion of L hip does not cause groin pain but does cause pain in his lateral left back and lateral left hip neuro - strength b/l legs 5/ Results & Data Results & Data Vital Signs (Past 12 Hours) Vital Signs Temp Pulse Pulse Resp BP BP Pulse Ox 09/21/24 11:14 36.8 C 96 H 18 134/75 95 09/21/24 10:06 09/21/24 07:45 36.7 C 94 H 19 137/72 96 09/21/24 07:24 82 09/21/24 07:21 36.8 C 98 H 20 113/70 94 O2 Del Method 09/21/24 11:14 Room Air 09/21/24 10:06 Room Air 09/21/24 07:45 Room Air 09/21/24 07:24 09/21/24 07:21 Room Air Laboratory Results Laboratory Results - last 24 hr 09/21/24 06:06 Sodium 135 L Potassium 3.9 Chloride 105 Carbon Dioxide 25 Anion Gap 5 BUN 10 Creatinine 0.54 L Est Cr Clr Drug Dosing 256.0 eGFR 115.51 BUN/Creatinine Ratio 18.5 Glucose 94 Calcium 7.9 L Total Bilirubin 0.7 AST 27 ALT 14 Alkaline Phosphatase 57 Total Protein 6.6 Albumin 2.6 L Globulin 4.0 Albumin/Globulin Ratio 0.7 L Diagnostic Findings Microbiology 09/19/24 10:28 Blood Aerobic Blood Culture - Preliminary No growth in Aerobic bottle after 48 hours. 09/19/24 10:28 Blood Anaerobic Blood Culture - Preliminary No growth in Anaerobic bottle after 48 hours. 09/19/24 10:39 Blood Aerobic Blood Culture - Preliminary No growth in Aerobic bottle after 48 hours. 09/19/24 10:39 Blood Anaerobic Blood Culture - Preliminary No growth in Anaerobic bottle after 48 hours. 09/17/24 13:25 Leg,Left Gram Stain - Final 09/17/24 13:25 Leg,Left Wound Culture - Final Alcaligenes faecalis#2 Alcaligenes faecalis Streptococcus dysgalactiae 09/17/24 13:25 Leg,Right Gram Stain - Final 09/17/24 13:25 Leg,Right Wound Culture - Final Alcaligenes faecalis Streptococcus dysgalactiae 09/16/24 21:45 Blood Aerobic Blood Culture - Final Streptococcus dysgalactiae 09/16/24 21:45 Blood Anaerobic Blood Culture - Final Streptococcus dysgalactiae 09/16/24 21:46 Blood Aerobic Blood Culture - Preliminary Streptococcus dysgalactiae 09/16/24 21:46 Blood Anaerobic Blood Culture - Preliminary No growth in Anaerobic bottle after 48 hours. PG Care Time/CCT Total # of Minutes Spent Total Time Spent with Patient: Total time spent is greater than 50% in coordination of care (as documented) at patient's floor/unit and/or counseling patient: Coding Level of Care Code 49863 SUB INP/OBS CARE 3/50MIN Diagnoses Bacteremia R78.81 Sepsis A41.9 Cellulitis L03.90 Atrial fibrillation with RVR I48.91 Lymphedema I89.0 Demand ischemia of myocardium I24.89 Elevated troponin R79.89 Morbid obesity with BMI of 50.0-59.9, adult E66.01; Z68.43 Hypertension I10 Dyslipidemia E78.5
[2024-09-22 07:09] LABS: BUN Creatinine Ratio 17.9 (10-20); Calcium 8.3 mg/dl (8.6-10.3); Creatinine Clr Calc Pharmacy 247.5 ml/min; Potassium 3.9 mmol/L (3.5-5.1)
--- NOTE | 2024-09-22 08:36 | Ultrasound Report ---
US liver CLINICAL HISTORY: hypoalbuminemia, abnl LFTs; cirrhosis? COMPARISON STUDY: CT of the abdomen and pelvis March 02, 2016. FINDINGS: This exam is moderately compromised by suboptimal penetration. There is coarsening of hepat ic echotexture liver and nodularity of the liver surface. No hepatic lesions are identified although sensitivity is significantly diminished on this exam. There is no biliary ductal dilatation. No galls tones are visualized. There is no gallbladder wall thickening. Pancreatic body is normal. Head and ta il are obscured. There is no right hydronephrosis. IMPRESSION: 1. Suspected cirrhosis. No hepatic lesions identified although sensitivity significantly diminished g iven suboptimal penetration. 2. No gallstones or biliary ductal dilatation. ACT 112: Negative or not required by law. Electronically signed by: Agus Servin M.D. 09/22/2024 8:35 AM
--- NOTE | 2024-09-22 17:08 | Hospitalist Progress Note ---
Date of Service September 22, 2024 Assessment & Plan (1) Bacteremia: (2) Sepsis: (3) Cellulitis: (4) Atrial fibrillation with RVR: (5) Lymphedema: (6) Demand ischemia of myocardium: (7) Elevated troponin: (8) Morbid obesity with BMI of 50.0-59.9, adult: (9) Hypertension: (10) Dyslipidemia: (11) Hypoalbuminemia: (12) Abnormal finding on imaging of liver: Plan 58yo male with severe, b/l chronic LE lymphedema, permanent a.fib, and morbid obesity admitted with sepsis due to left leg cellulitis and bacteremia. #Sepsis / bacteremia - -resolved -bacteremia was 2nd strep dysgalactiae -source - LLE cellulitis, bilateral LE wound infections -repeat blood cx's 09/19 negative -appreciate ID consult - recs: -cont zosyn while inpatient, day #6 today; at discharge transition to PO augmentin 875mg BID + bactrim DS 2 tabs BID through 09/29 (this will complete 14 days of Rx) -would change these abx to PO on 09/23/24 to ensure he can tolerate both -of note - no obvious septic L hip, etc #LLE cellulitis - -improving nicely on zosyn - day #6 of such today -CT LLE - no fluid collections, abscess, or nec fasc findings -ID consult appreciated; recommending to continue pip-tazo while inpatient to cover Strep dysgalactiae and Alcaligenes faecalis -transition to amox/clav 875 mg PO BID and TMP/SMX 2 DS tabs PO BID through 09/29 to complete a 14 days of Rx; consider doing this change on 09/23/24 #A. fib RVR - -improved rates; RVR likely due to sepsis at time of admission -cont meto tartrate 25mg BID -cont Eliquis 5mg BID -h/o PAF, but has been in fib most of this stay # nausea vomiting and an episode of diarrhea - -earlier in the admission; had resolved but now symptoms have returned -obtained CT a/p due to several months of stomach upset, stomach discomfort, etc -- negative for acute findings -check a c diff due to diarrhea and IV zosyn usage #Chronic HFpEF - compensated #Myocardial demand ischemia - -elevated troponin 2nd to such; no evidence of ACS -demand ischemia 2nd to sepsis -peak trop 60s -echo - normal EF, no LV WMAs #HTN - -cont metoprolol tartrate BID -holding losartan - resume tomorrow on 09/23? -holding torsemide #Hyperlipidemia - -statin on hold for now; resume 09/23? 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 #morbid obesity BMI 50s - -would benefit from referral to our weight loss clinic with [facility]; will talk with him about such #lymphedema - -inquire with Dr Santos from cards/vascular about options in the community - the following are options per Dr Santos: -[facility] (local in [place] - they do home visits) for manual Rx -[facility] ([facility]) - for manual Rx -[facility] - for manual Rx -compression pumps - [facility] out of [place] #obstructive sleep apnea - -noncompliant with CPAP -has sleep study this summer -refusing NIV while here unfortunately #?cirrhosis / abnormal liver u/s - -low albumin could be explained, in part, by early cirrhosis -is compensated from liver standpoint - no ascites, etc -if he has early cirrhosis suspect he has had long-standing fatty liver -send to GI post-d/c DVT proph - eliquis 5mg BID sent message to pt's sister in law with update once again today Dispo - [facility] - tomorrow? Thursday? Admission and Anticipated Discharge Date Admission Date: September 16, 2024 Subjective patient resting in bed comfortably had a little nausea earlier in the day appetite remains fair-poor at best no vomiting no GERD symptoms reports several months of off/on stomach discomfort - central abdomen, above the umbilicus he is uncertain about weight loss - he states that at his last office visit with [facility] he was told his weight was down 100 pounds? but the weights here at [facility] do not reflect that amount of weight loss with respect to depression he denies such he is disgusted with his health and "how things got this way" [with his health] he admits he is nervous to leave the hospital states he is comfortable here, and enjoys working with our PT department we discussed the differences between acute care hospital and acute rehab explained at the hospital he will get, at most, about 30 min of rehab time each day vs 3 hours at acute rehab feels like he might get rushed out of rehab once he is there discussed liver u/s results (?early cirrhosis) Review of Systems Review of Systems: gen - no fevers or chills cv - no chest pain, no orthopnea pulm - no dyspnea GI - ongoing diarrhea, mild dyspepsia Physical Exam Physical Exam: gen - morbidly obese, NAD, laying in bed comfortably, restricted affect neck - no JVD mouth - MMM heart - irregularly irregular, s1 s2, rate <100 lungs - CTA b/l abd - soft NT ND BS+ (hyperactive) ext - massive lymphedema/elephantiasis appearance of both legs; lymphedema extends to distal thighs; pulses b/l feet 2+ skin - severe stasis changes - dark brown skin - extending from feet to knees with crusty appearance/hyperkeratosis of all areas; erythematous skin proximal anterior L thigh extending laterally - IMPROVED Results & Data Results & Data Vital Signs (Past 12 Hours) Vital Signs Temp Pulse Resp BP Pulse Ox O2 Del Method 09/22/24 15:10 36.8 C 74 18 120/75 93 Room Air 09/22/24 11:54 Room Air 09/22/24 11:34 36.5 C 95 H 18 129/80 97 Room Air 09/22/24 07:27 36.5 C 91 H 18 121/68 96 Room Air Laboratory Results Laboratory Results - last 24 hr 09/22/24 06:23 Sodium 136 Potassium 3.9 Chloride 104 Carbon Dioxide 28 Anion Gap 4 BUN 10 Creatinine 0.56 L Est Cr Clr Drug Dosing 247.5 eGFR 114.25 BUN/Creatinine Ratio 17.9 Glucose 102 H Calcium 8.3 L Total Creatine Kinase 66 Diagnostic Findings Microbiology 09/16/24 21:46 Blood Aerobic Blood Culture - Preliminary Streptococcus dysgalactiae 09/16/24 21:46 Blood Anaerobic Blood Culture - Final No growth in Anaerobic bottle after 5 days. 09/19/24 10:28 Blood Aerobic Blood Culture - Preliminary No growth in Aerobic bottle after 48 hours. 09/19/24 10:28 Blood Anaerobic Blood Culture - Preliminary No growth in Anaerobic bottle after 48 hours. 09/19/24 10:39 Blood Aerobic Blood Culture - Preliminary No growth in Aerobic bottle after 48 hours. 09/19/24 10:39 Blood Anaerobic Blood Culture - Preliminary No growth in Anaerobic bottle after 48 hours. 09/17/24 13:25 Leg,Left Gram Stain - Final 09/17/24 13:25 Leg,Left Wound Culture - Final Alcaligenes faecalis#2 Alcaligenes faecalis Streptococcus dysgalactiae 09/17/24 13:25 Leg,Right Gram Stain - Final 09/17/24 13:25 Leg,Right Wound Culture - Final Alcaligenes faecalis Streptococcus dysgalactiae 09/16/24 21:45 Blood Aerobic Blood Culture - Final Streptococcus dysgalactiae 09/16/24 21:45 Blood Anaerobic Blood Culture - Final Streptococcus dysgalactiae Liver Ultrasound 09/22/24 06:23 US liver CLINICAL HISTORY: hypoalbuminemia, abnl LFTs; cirrhosis? COMPARISON STUDY: CT of the abdomen and pelvis March 02, 2016. FINDINGS: This exam is moderately compromised by suboptimal penetration. There is coarsening of hepatic echotexture liver and nodularity of the liver surface. No hepatic lesions are identified although sensitivity is significantly diminished on this exam. There is no biliary ductal dilatation. No gallstones are visualized. There is no gallbladder wall thickening. Pancreatic body is normal. Head and tail are obscured. There is no right hydronephrosis. IMPRESSION: 1. Suspected cirrhosis. No hepatic lesions identified although sensitivity significantly diminished given suboptimal penetration. 2. No gallstones or biliary ductal dilatation. ACT 112: Negative or not required by law. Electronically signed by: Agus Servin M.D. 09/22/2024 8:35 AM Abdomen/Pelvis CT 09/22/24 17:08 Exam(s): CT ABDOMEN + PELVIS With Contrast IV Amt: 115 ml optiray 320 EXAM: CT Abdomen and Pelvis With Intravenous Contrast CLINICAL HISTORY: Reason for exam: malnourished, central abd pain x 4 months. TECHNIQUE: Axial computed tomography images of the abdomen and pelvis with intravenous contrast. CTDI is 28.14 mGy and DLP is 1415.4 mGy-cm. Automated exposure control was utilized for the study. A dose lowering technique was utilized adhering to the principles of ALARA. CONTRAST: Patient received 115 ml optiray 320 of IV contrast COMPARISON: No relevant prior studies available. FINDINGS: Pleural space: Trace pleural effusions. ABDOMEN: Liver: Unremarkable. Gallbladder and bile ducts: Unremarkable. Pancreas: Unremarkable. Spleen: Unremarkable. Adrenals: Unremarkable. Kidneys and ureters: Unremarkable. No obstructing stones. No hydronephrosis. Stomach and bowel: No bowel obstruction. No inflammatory changes. Mild gaseous distention of the transverse colon. PELVIS: Appendix: No findings to suggest acute appendicitis. Bladder: Jerez catheter in the bladder. Reproductive: Unremarkable as visualized. ABDOMEN and PELVIS: Intraperitoneal space: Unremarkable. No free air. No significant fluid collection. Bones/joints: No acute fracture. Soft tissues: Unremarkable. Vasculature: Unremarkable. Lymph nodes: Unremarkable. IMPRESSION: 1. No acute abnormality in the abdomen or pelvis. 2. Trace pleural effusions. Electronically signed by: Mamadou Rosas MD 09/22/24 20:15 PM PG Care Time/CCT Total # of Minutes Spent Total Time Spent with Patient: Total time spent is greater than 50% in coordination of care (as documented) at patient's floor/unit and/or counseling patient: Coding Level of Care Code 85935 SUB INP/OBS CARE 3/50MIN Diagnoses Bacteremia R78.81 Sepsis A41.9 Cellulitis L03.90 Atrial fibrillation with RVR I48.91 Lymphedema I89.0 Demand ischemia of myocardium I24.89 Elevated troponin R79.89 Morbid obesity with BMI of 50.0-59.9, adult E66.01; Z68.43 Hypertension I10 Dyslipidemia E78.5 Hypoalbuminemia E88.09 Abnormal finding on imaging of liver R93.2
[2024-09-22] MEDS: OPTIRAY 320 125ml IV ONE (19:45)
--- NOTE | 2024-09-22 20:16 | CT Scan Report ---
Exam(s): CT ABDOMEN + PELVIS With Contrast IV Amt: 115 ml optiray 320 EXAM: CT Abdomen and Pelvis With Intravenous Contrast CLINICAL HISTORY: Reason for exam: malnourished, central abd pain x 4 months. TECHNIQUE: Axial computed tomography images of the abdomen and pelvis with intravenous contrast. CTDI is 28.14 mGy and DLP is 1415.4 mGy-cm. Automated exposure control was utilized for the study. A dose lowering technique was utilized adhering to the principles of ALARA. CONTRAST: Patient received 115 ml optiray 320 of IV contrast COMPARISON: No relevant prior studies available. FINDINGS: Pleural space: Trace pleural effusions. ABDOMEN: Liver: Unremarkable. Gallbladder and bile ducts: Unremarkable. Pancreas: Unremarkable. Spleen: Unremarkable. Adrenals: Unremarkable. Kidneys and ureters: Unremarkable. No obstructing stones. No hydronephrosis. Stomach and bowel: No bowel obstruction. No inflammatory changes. Mild gaseous distention of the transverse colon. PELVIS: Appendix: No findings to suggest acute appendicitis. Bladder: Jerez catheter in the bladder. Reproductive: Unremarkable as visualized. ABDOMEN and PELVIS: Intraperitoneal space: Unremarkable. No free air. No significant fluid collection. Bones/joints: No acute fracture. Soft tissues: Unremarkable. Vasculature: Unremarkable. Lymph nodes: Unremarkable. IMPRESSION: 1. No acute abnormality in the abdomen or pelvis. 2. Trace pleural effusions. Electronically signed by: Mamadou Rosas MD 09/22/24 20:15 PM
[2024-09-23] MEDS: AMMONIUM LACTATE 12% LOTION 225 GM BTL EXT PRN (05:07)
[2024-09-23 07:43] LABS: Hematocrit (blood only) 31.5 % (42.0-52.0); Hemoglobin 10.6 g/dl (14.0-18.0)
[2024-09-23 08:02] LABS: BUN Creatinine Ratio 14.3 (10-20); Calcium 8.3 mg/dl (8.6-10.3); Creatinine Clr Calc Pharmacy 245.8 ml/min; Potassium 3.8 mmol/L (3.5-5.1)
[2024-09-23] MEDS: METOPROLOL TARTRATE 25 MG TAB PO STA (09:00)
[2024-09-23] MEDS: TORSEMIDE 20 MG TAB PO SCH (11:31)
[2024-09-23] MEDS: ERGOCALCIFEROL 1250 MCG (50,000 UNITS) CAP PO ONE (11:31)
[2024-09-23] MEDS: AMOXICILLIN/CLAVULANATE 875 MG TAB PO SCH (13:58)
[2024-09-23] MEDS: SULFAMETHOXAZOLE/TRIMETHOPRIM DS 800/160MG TAB PO SCH (13:58)
[2024-09-23] MEDS: SUCRALFATE 1 GM/10 ML UDC PO SCH (17:44)
[2024-09-23] MEDS: FAMOTIDINE 20MG IV PUSH 20 MG/5 ML SYR IV STA (17:52)
[2024-09-23] MEDS: METOPROLOL TARTRATE 50 MG TAB PO SCH (20:48)
--- NOTE | 2024-09-23 21:33 | Hospitalist Progress Note ---
Date of Service September 23, 2024 Assessment & Plan (1) Bacteremia: (2) Sepsis: (3) Cellulitis: (4) Atrial fibrillation with RVR: (5) Lymphedema: (6) Demand ischemia of myocardium: (7) Elevated troponin: (8) Morbid obesity with BMI of 50.0-59.9, adult: (9) Hypertension: (10) Dyslipidemia: (11) Hypoalbuminemia: (12) Abnormal finding on imaging of liver: (13) Vitamin D deficiency: (14) Macrocytosis: Plan 58yo male with severe, b/l chronic LE lymphedema, permanent a.fib, and morbid obesity admitted with sepsis due to left leg cellulitis and bacteremia. #Sepsis / bacteremia - -resolved -bacteremia was 2nd strep dysgalactiae -source - LLE cellulitis, bilateral LE wound infections -repeat blood cx's 09/19 negative -appreciate ID consult - recs: -zosyn while inpatient, day #7 today; can stop IV zosyn today, change to PO augmentin 875mg BID + bactrim DS 2 tabs BID through 09/29 (this will complete 14 days of Rx) -of note - no obvious septic L hip, etc #LLE cellulitis - -improving nicely on zosyn - day #7 of such today; change to PO abx as noted above -CT LLE - no fluid collections, abscess, or nec fasc findings -ID consult appreciated; recommending to continue pip-tazo while inpatient to cover Strep dysgalactiae and Alcaligenes faecalis #A. fib RVR - -improved rates; RVR likely due to sepsis at time of admission -cont meto tartrate 25mg BID -cont Eliquis 5mg BID -h/o PAF, but has been in fib most of this stay # nausea, vomiting - -earlier in the admission; had resolved but now symptoms have returned -obtained CT a/p due to several months of stomach upset, stomach discomfort, etc -- negative for acute findings -check a c diff due to diarrhea and IV zosyn usage - c diff negative -gastritis? GERD? gastroparesis? other? -pepcid 20mg IV x 1 then carafate QID + PPI daily -if symptoms continue then GI consult for EGD? -can't exclude antibiotics contributing to N/V -check lipase & LFTs in am #Chronic HFpEF - compensated #Myocardial demand ischemia - -elevated troponin 2nd to such; no evidence of ACS -demand ischemia 2nd to sepsis -peak trop 60s -echo - normal EF, no LV WMAs #HTN - -cont metoprolol tartrate BID -holding losartan -resume torsemide today, 09/23 #Hyperlipidemia - -statin on hold for now; resume 09/24 #hypoalbuminemia - -AST was also elevated at presentation -AST now normal; CPK wnl -with morbid obesity at risk of fatty liver and/or cirrhosis -thus checked liver u/s - possible early cirrhotic changes -CT abd/pelvis without acute process that would explain low albumin or his stomach discomforts -consider GI referral post-d/c for EGD, following the liver issue, etc # nutritional / mood concerns - -B12 level low-normal; on replacement for now -B1 level pending -?depression - patient denies such but family believes he is indeed depressed -did discuss with him options for Rx for his moods -low vit D will make some of these symptoms worse #prediabetes - -a1c 5.8% -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 #morbid obesity BMI 50s - -would benefit from referral to our weight loss clinic with [facility]; will talk with him about such #lymphedema - -inquired with Dr Santos from cards/vascular about options in the community - the following are options per Dr Santos: -[facility] (local in [place] - they do home visits) for manual Rx -[facility] ([employer] Chloe Puri) - for manual Rx -[facility] - for manual Rx -compression pumps - [facility] out of [place] #obstructive sleep apnea - -noncompliant with CPAP -has sleep study this summer -refusing NIV while here unfortunately #?cirrhosis / abnormal liver u/s - -low albumin could be explained, in part, by early cirrhosis -is compensated from liver standpoint - no ascites, etc -if he has early cirrhosis suspect he has had long-standing fatty liver -send to GI post-d/c #macrocytosis - -folate wnl -TSH wnl -B12 level low-normal; replacing -sent copper level -liver disease contributing to macrocytosis?? #vitamin D def - -25 OH vit D level 9 -ergocalciferol 50,000 units qweekly x 8 weeks DVT proph - eliquis 5mg BID 15 min phone call with medical records custodian at pt's insurance co completing [id number] review process for request for acute rehab discussed with the medical records custodian that patient is excellent acute rehab candidate, was previously living independently at his home (alone), is motivated, and plans to return home following rehab; he is not interested in H/SNF status long-term -further discussed that I believe he would do poorly in a SNF given his fairly young age, severe morbid obesity, severe lymphedema, etc. -I expressed concerns that his extreme morbid obesity would make his care at a SNF very challenging and his needs would be best met in acute rehab setting -further expressed that it is often very difficult to find a SNF that can accommodate a bariatric patient -determination pending updated pt's sister & [id number] by phone Admission and Anticipated Discharge Date Admission Date: September 16, 2024 Subjective patient resting in bed during the visit I informed him that I completed the [id number] process with his insurance co today and that the final determination was still pending this was for request for acute rehab at [facility] explained that if the rehab request was denied we would have to look at [facility] SNF as back-up option remains in a.fib on tele was feeling ok this am, but sometime after working with PT this afternoon he had nausea followed by vomiting did not each much today denies any abd pain denies any LLE pain Review of Systems Review of Systems: gen - no fevers or chills cv - no chest pain pulm - no dyspnea or cough GI - still with mild loose stool; denies JOSE symptoms despite N/V Physical Exam Physical Exam: gen - morbidly obese, NAD, laying in bed comfortably, looks similar to yesterday neck - no JVD mouth - MMM heart - irregularly irregular, s1 s2, regular rate lungs - CTA b/l abd - soft NT ND BS+, no peritoneal signs ext - massive lymphedema/elephantiasis appearance of both legs; lymphedema extends to distal thighs; pulses b/l feet 2+ skin - severe stasis changes - dark brown skin - extending from feet to knees with crusty appearance/hyperkeratosis of all areas; erythematous skin proximal anterior L thigh extending laterally - IMPROVED/nearly resolved; nontender in this region Results & Data Results & Data Vital Signs (Past 12 Hours) Vital Signs Temp Pulse Resp BP BP Pulse Ox O2 Del Method 09/23/24 19:32 36.9 C 101 H 20 124/68 96 Room Air 09/23/24 16:24 36.6 C 106 H 18 113/73 93 Room Air 09/23/24 11:12 36.8 C 106 H 18 125/72 99 Room Air Laboratory Results Laboratory Results - last 24 hr 09/23/24 09/23/24 05:14 07:02 Hgb 10.6 L Hct 31.5 L Sodium 137 Potassium 3.8 Chloride 105 Carbon Dioxide 28 Anion Gap 4 BUN 8 Creatinine 0.56 L Est Cr Clr Drug Dosing 245.8 eGFR 114.25 BUN/Creatinine Ratio 14.3 Glucose 103 H Calcium 8.3 L Magnesium 2.0 25-OH Vitamin D Total 9.5 L Stl C. diff Tox B Gene Negative Cdiff Gene Serum Copper Pending PG Care Time/CCT Total # of Minutes Spent Total Time Spent with Patient: Total time spent is greater than 50% in coordination of care (as documented) at patient's floor/unit and/or counseling patient: Coding Level of Care Code 96270 SUB INP/OBS CARE 3/50MIN Diagnoses Bacteremia R78.81 Sepsis A41.9 Cellulitis L03.90 Atrial fibrillation with RVR I48.91 Lymphedema I89.0 Demand ischemia of myocardium I24.89 Elevated troponin R79.89 Morbid obesity with BMI of 50.0-59.9, adult E66.01; Z68.43 Hypertension I10 Dyslipidemia E78.5 Hypoalbuminemia E88.09 Abnormal finding on imaging of liver R93.2 Vitamin D deficiency E55.9 Macrocytosis D75.89
[2024-09-24 07:28] LABS: Albumin Level 2.6 gm/dl (3.4-5.0); BUN Creatinine Ratio 13.4 (10-20); Bilirubin Direct 0.1 mg/dl (0-0.2); Bilirubin,Total 0.5 mg/dl (0.2-1.0); Calcium 8.4 mg/dl (8.6-10.3); Magnesium 1.9 mg/dl (1.7-2.4); Potassium 3.5 mmol/L (3.5-5.1); Total Protein 7.4 gm/dl (6.0-8.3)
[2024-09-24] MEDS: PANTOprazole 40 MG TAB PO SCH (09:24)
--- NOTE | 2024-09-24 16:46 | Hospitalist Progress Note ---
Date of Service September 24, 2024 Assessment & Plan (1) Bacteremia: (2) Sepsis: (3) Cellulitis: (4) Atrial fibrillation with RVR: (5) Lymphedema: (6) Demand ischemia of myocardium: (7) Elevated troponin: (8) Morbid obesity with BMI of 50.0-59.9, adult: (9) Hypertension: (10) Dyslipidemia: (11) Hypoalbuminemia: (12) Abnormal finding on imaging of liver: (13) Vitamin D deficiency: (14) Macrocytosis: Plan 58yo male with severe, b/l chronic LE lymphedema, permanent a.fib, and morbid obesity admitted with sepsis due to left leg cellulitis and bacteremia. #Sepsis / bacteremia - -resolved -bacteremia was 2nd strep dysgalactiae -source - LLE cellulitis, bilateral LE wound infections -repeat blood cx's 09/19 negative -appreciate ID consult - recs: -completed 7 days of IV zosyn -changed to PO augmentin 875mg BID + bactrim DS 2 tabs BID on 09/23/24 -cont both PO abx through 09/29 (this will complete 14 days of IV/PO Rx) -of note - no obvious septic L hip, etc on examination #LLE cellulitis - -improving/resolving -Strep dysgalactiae and Alcaligenes faecalis grew from both leg wounds -see discussion re: abx above -CT LLE - no fluid collections, abscess, or nec fasc findings -ID consult appreciated #A. fib RVR - -improved rates; RVR likely due to sepsis at time of admission -cont meto tartrate 25mg BID -cont Eliquis 5mg BID -h/o PAF, but has been in a.fib continuously since admission; may have permanent a.fib at this point # nausea, vomiting - -earlier in the admission; had resolved but now symptoms have returned -obtained CT a/p due to several months of stomach upset, stomach discomfort, etc -- negative for acute findings -liver u/s - no gall bladder findings - no stones, etc. -checked a c diff due to diarrhea and IV zosyn usage - c diff negative -gastritis? GERD? gastroparesis? other? -pepcid 20mg IV x 1 then carafate QID + PPI daily given yesterday/today -symptoms seemed better, then had N/V at dinner tonight -will ask GI to consult on Thursday; need for EGD? -outpatient gastric emptying study? -reglan 5mg IV x 1 given this afternoon -then reglan prn thereafter -can't exclude antibiotics contributing to N/V -of note --> lipase & LFTs wnl today #Chronic HFpEF - compensated -cont BB -cont torsemide #Myocardial demand ischemia - -elevated troponin 2nd to such; no evidence of ACS -demand ischemia 2nd to sepsis -peak trop 60s -echo - normal EF, no LV WMAs #HTN - -cont metoprolol tartrate BID -holding losartan -cont torsemide albeit at lower dose of 40mg/day (was on 100mg/day at home) #Hyperlipidemia - -statin on hold but can resume; LFTs wnl #hypoalbuminemia - -AST was also elevated at presentation -AST now normal; CPK wnl -with morbid obesity at risk of fatty liver and/or cirrhosis -thus checked liver u/s - possible early cirrhotic changes -CT abd/pelvis without acute process that would explain low albumin or his stomach discomforts -consider GI referral post-d/c for EGD, following the liver issue, etc # nutritional / mood concerns - -B12 level low-normal; on replacement for now -B1 level pending -?depression - patient denies such but family believes he is indeed depressed -did discuss with him options for Rx for his moods -low vit D will make some of these symptoms worse #prediabetes - -a1c 5.8% -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 #morbid obesity BMI 50s - -would benefit from referral to our weight loss clinic with [facility]; will talk with him about such #lymphedema - -inquired with Dr Santos from cards/vascular about options in the community - the following are options per Dr Santos: -[facility] (local in [place] - they do home visits) for manual Rx -[facility] ([employer] [facility] Puri) - for manual Rx -[facility] - [place] - for manual Rx -compression pumps - [facility] OR [facility] out of [place] #obstructive sleep apnea - -noncompliant with CPAP -has sleep study this summer -refusing NIV while here unfortunately #?cirrhosis / abnormal liver u/s - -low albumin could be explained, in part, by early cirrhosis -is compensated from liver standpoint - no ascites, etc -if he has early cirrhosis suspect he has had long-standing fatty liver -send to GI post-d/c #macrocytosis - -folate wnl -TSH wnl -B12 level low-normal; s/p IM B12 x 7 days; will switch to PO B12 today; plan 4- 6 months of Rx -sent copper level; pending -liver disease contributing to macrocytosis?? #vitamin D def - -25 OH vit D level 9 -ergocalciferol 50,000 units qweekly x 8 weeks; first dose 09/23/24 DVT proph - eliquis 5mg BID awaiting final determination from insurance about acute rehab approval d/c tele, move to med/surg Admission and Anticipated Discharge Date Admission Date: September 16, 2024 Subjective tele - a.fib, rates about 100 or less sitting in chair for most of the day today minimal stomach upset since getting pepcid/protonix/carafate yesterday/today then, unfortunately about 5pm this evening he had multiple episodes of emesis he denied any new complaints today stools are forming did not hear from his insurance company today about approval or no approval for acute rehab Review of Systems Review of Systems: gen - no fevers or chills musculo - discomfort noted in his left calf muscle when he got up from the bed to the chair; this is new for him cv - no chest pain pulm - no dyspnea or cough GI - no pain Physical Exam Physical Exam: gen - morbidly obese, NAD, sitting in chair comfortably, best he has looked over the last few days neck - no JVD mouth - MMM heart - irregularly irregular, s1 s2, regular rate lungs - CTA b/l abd - soft NT ND BS+, no peritoneal signs ext - massive lymphedema/elephantiasis appearance of both legs; lymphedema extends to distal thighs; pulses b/l feet 2+; left calf is mildly warm to touch; right calf is normal temperature; the left calf has more firm edema/swelling in comparison to the right calf skin - severe stasis changes - dark brown skin - extending from feet to knees with crusty appearance/hyperkeratosis of all areas; erythematous skin proximal anterior L thigh extending laterally - IMPROVED/nearly resolved; nontender in this region Results & Data Results & Data Vital Signs (Past 12 Hours) Vital Signs Temp Pulse Resp BP Pulse Ox O2 Del Method 05/10/25 11:54 36.8 C 90 20 129/80 94 Room Air 09/24/24 08:30 Room Air 09/24/24 08:04 36.8 C 97 H 18 147/80 H 94 Room Air Laboratory Results Laboratory Results - last 24 hr 09/24/24 06:29 Sodium 136 Potassium 3.5 Chloride 102 Carbon Dioxide 29 Anion Gap 5 BUN 9 Creatinine 0.67 Est Cr Clr Drug Dosing 205.0 eGFR 108.23 BUN/Creatinine Ratio 13.4 Glucose 92 Calcium 8.4 L Magnesium 1.9 Total Bilirubin 0.5 Direct Bilirubin 0.1 AST 28 ALT 19 Alkaline Phosphatase 59 Total Protein 7.4 Albumin 2.6 L Lipase 14 PG Care Time/CCT Total # of Minutes Spent Total Time Spent with Patient: Total time spent is greater than 50% in coordination of care (as documented) at patient's floor/unit and/or counseling patient: Coding Level of Care Code 54245 SUB INP/OBS CARE 2/35MIN Diagnoses Bacteremia R78.81 Sepsis A41.9 Cellulitis L03.90 Atrial fibrillation with RVR I48.91 Lymphedema I89.0 Demand ischemia of myocardium I24.89 Elevated troponin R79.89 Morbid obesity with BMI of 50.0-59.9, adult E66.01; Z68.43 Hypertension I10 Dyslipidemia E78.5 Hypoalbuminemia E88.09 Abnormal finding on imaging of liver R93.2 Vitamin D deficiency E55.9 Macrocytosis D75.89
[2024-09-24] MEDS: METOCLOPRAMIDE HCL INJ 5 MG/ML 2 ML VIAL IV STA (18:29)
[2024-09-24] MEDS ORDERED: METOCLOPRAMIDE HCL INJ 5 MG/ML 2 ML VIAL IV PRN (23:00)
[2024-09-25 07:20] LABS: BUN Creatinine Ratio 12.5 (10-20); Calcium 8.4 mg/dl (8.6-10.3); Creatinine Clr Calc Pharmacy 190.8 ml/min; Potassium 3.5 mmol/L (3.5-5.1)
[2024-09-25] MEDS: CYANOCOBALAMIN (B-12) 500 MCG TABLET PO SCH (09:13)
[2024-09-25] MEDS: POTASSIUM CHLORIDE 10 MEQ TABCR PO SCH (09:19)
[2024-09-25] MEDS: ROSUVASTATIN CALCIUM 20 MG TAB PO SCH (10:17)
--- NOTE | 2024-09-25 12:04 | Gastrointestinal Consultation ---
Date of Consultation September 25, 2024 Assessment & Plan (1) Nausea and vomiting: Patient states symptoms began with onset of this current cellulitis. Prior to this he seems to have been well. I believe they are related. Symptoms may be systemic infection or related to medications. Patient spent most time in bed some delayed intestinal function probable. His emesis is predominantly of fluid. Not food. Typical gastric outlet obstruction or severe gastroparesis will be vomiting of previously eaten food. CT scan from 09/22/2024 did show some gaseous distention of the colon. Check an abdominal series to exclude an Haskins's type syndrome or ileus. Lets try Reglan chlorpropamide for 48 hours to decrease nausea and improve any delayed gastric emptying or ileus. Reviewed with patient agreeable to proceed. (2) Lymphedema: (3) Hypoalbuminemia: (4) Morbid obesity with BMI of 50.0-59.9, adult: History of Present Illness Reason for Consultation: Nausea and vomiting Attending Physician: Alon Collado MD History of Present Illness 58-year-old gentleman with chronic lymphedema. Comes in with worsening of this and cellulitis. Patient has had nearly daily nausea and vomiting. States is mainly of liquid material and not food. Describes it as small to moderate amount. He feels it is lessening. Today tolerated breakfast without issues. Patient states usually no problems with eating he denies frequent heartburn or indigestion he denies solid food dysphagia. CT scan from 09/22/2024 did not show ileus or gastric distention. Minimal distention of the transverse colon. Patient has been moving his bowels daily Patient states symptoms began with onset of his cellulitis, review of his home medications does not show regular use of aspirin or NSAIDs. No past history of peptic ulcer disease. Patient is not diabetic. Allergies Allergy/AdvReac Type Severity Reaction Status Date / Time ondansetron [From Zofran] Allergy Intermediate Nausea Verified 09/16/24 22:19 Home Medications Medication Instructions Recorded Confirmed Type multivitamin 1 tab PO DAILY 08/17/24 09/16/24 History apixaban 5 mg tablet (Eliquis) 5 mg PO BID 90 days #180 tabs 08/30/24 09/16/24 Rx losartan 25 mg tablet 25 mg PO QAM 90 days #90 tabs 08/30/24 09/16/24 Rx metoprolol succinate 100 mg 100 mg PO QAM 90 days #90 tabs 08/30/24 09/16/24 Rx tablet,extended release 24 hr rosuvastatin 20 mg tablet 20 mg PO DAILY 90 days #90 tabs 08/30/24 09/16/24 Rx torsemide 100 mg tablet 100 mg PO DAILY 90 days #90 tabs 08/30/24 09/16/24 Rx Patient History Medical History Hypertension History of COVID-19 last year > not hospitalized History of kidney stones Diastolic heart failure Sleep apnea possible? getting test on May 12 Dyslipidemia Atrial fibrillation dx approx 2 -3 yrs ago > no pacer > Jantoven > follows with Dr. Paiz Surgical History Hx of tympanostomy tubes History of colonoscopy History of tonsillectomy H/O umbilical hernia repair S/P laparoscopic appendectomy H/O lithotripsy Family History Mother Breast cancer Heart disease Kidney disease Sister Breast cancer Father Stroke Social History Smoking Status: Never smoker Second Hand Exposure: No; Do You Dip or Chew Tobacco: No; Hx Alcohol Use: No Hx Substance Use: No Preferred Language: Turkish Communication Ability: Effective Siding Installer Required: No Beliefs That Will Affect Care: None Current Living Situation: Alone Feels Safe at Home: Yes Safety Concerns: Feels Safe At This Time Assistive Devices: Cane Review of Systems Review of Systems: Patient denies weight loss Appetite good until recently. Review of systems otherwise per admitting H&P without change GI as noted above. Physical Exam Physical Exam: Malodorous smell in the room likely from a cellulitis Patient was alert and orientated x 3 in no acute distress Chest heart leg exam per hospitalist. Without change Abdomen is protuberant but benign. Bowel sounds are present. No guarding rebound or rigidity. 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 Skin no rash other than noted chronic lymphedema Exam otherwise negative Results & Data Vital Signs (Past 12 Hours) Vital Signs Temp Pulse Resp BP Pulse Ox O2 Del Method 09/25/24 08:00 36.9 C 101 H 20 116/69 93 Room Air PG Care Time/CCT Total # of Minutes Spent Total Time Spent with Patient: Total time spent is greater than 50% in coordination of care (as documented) at patient's floor/unit and/or counseling patient: Coding Level of Care Code 39884 INT INP/OBS CARE 2/55MIN Diagnoses Nausea and vomiting R11.2 Lymphedema I89.0 Hypoalbuminemia E88.09 Morbid obesity with BMI of 50.0-59.9, adult E66.01; Z68.43
[2024-09-25] MEDS: METOCLOPRAMIDE HCL INJ 5 MG/ML 2 ML VIAL IV SCH (12:25)
--- NOTE | 2024-09-25 14:06 | XRay Report ---
XR abdomen 2V w PA chest CLINICAL HISTORY: Nausea vomit COMPARISON STUDY: 09/16/2024 chest x-ray and abdominal CT of 09/22/2024 FINDINGS: Chest Stable mild cardiomegaly without pulmonary vascular congestion. No effusion, consolidation, or pneumothorax. ABDOMEN: There is grossly stable diffuse predominantly gaseous colonic distention measuring up to 13 cm diameter. No small bowel distention seen. No gross free air. IMPRESSION: 1. No acute findings seen in the chest. 2. Grossly stable colonic distention. ACT 112: Negative or not required by law. Electronically signed by: Oscar Marcos M.D. 09/25/2024 2:04 PM
--- NOTE | 2024-09-25 19:15 | Hospitalist Progress Note ---
Date of Service September 25, 2024 Assessment & Plan (1) Bacteremia: (2) Sepsis: (3) Cellulitis: (4) Atrial fibrillation with RVR: (5) Lymphedema: (6) Demand ischemia of myocardium: (7) Elevated troponin: (8) Morbid obesity with BMI of 50.0-59.9, adult: (9) Hypertension: (10) Dyslipidemia: (11) Hypoalbuminemia: (12) Abnormal finding on imaging of liver: (13) Vitamin D deficiency: (14) Macrocytosis: (15) Colon distention: Plan 58yo male with severe, b/l chronic LE lymphedema, permanent a.fib, and morbid obesity admitted with sepsis due to left leg cellulitis and bacteremia. #Sepsis / bacteremia - resolved -bacteremia was 2nd strep dysgalactiae -source - LLE cellulitis, bilateral LE wound infections -repeat blood cx's 09/19 negative -appreciate ID consult - recs: -completed 7 days of IV zosyn -changed to PO augmentin 875mg BID + bactrim DS 2 tabs BID on 09/23/24 -cont both PO abx through 09/29 (this will complete 14 days of IV/PO Rx) -of note - no obvious septic L hip, etc on examination #LLE cellulitis - -resolved -Strep dysgalactiae and Alcaligenes faecalis grew from both leg wounds -see discussion re: abx above -CT LLE - no fluid collections, abscess, or nec fasc findings -ID consult appreciated #A. fib RVR - -improved rates; RVR likely due to sepsis at time of admission -cont meto tartrate 50mg BID -cont Eliquis 5mg BID -h/o PAF, but has been in a.fib continuously since admission; may have permanent a.fib at this point # nausea, vomiting - -earlier in the admission; had resolved but then symptoms returned -obtained CT a/p due to several months of stomach upset, stomach discomfort, etc -- negative for acute findings -liver u/s - no gall bladder findings - no stones, etc. -lipase & LFTs wnl -checked a c diff due to diarrhea and IV zosyn usage - c diff negative -gastritis? GERD? gastroparesis? other? -pepcid 20mg IV x 1 then carafate QID + PPI daily -symptoms seemed better, then had N/V at dinner on 09/24/24 -asked GI to see in consult today -they advised abdominal x-ray series and trial of scheduled reglan -- 10mg IV q6h scheduled -x-rays returned with colonic dilatation -although recent c diff was negative, given ongoing loose stools in the midst of broad-spectrum abx, will recheck c diff 1 more time #Chronic HFpEF - compensated -cont BB -cont torsemide #Myocardial demand ischemia - -elevated troponin 2nd to such; no evidence of ACS -demand ischemia 2nd to sepsis -peak trop 60s -echo - normal EF, no LV WMAs #HTN - -cont metoprolol tartrate BID -holding losartan -cont torsemide albeit at lower dose of 40mg/day (was on 100mg/day at home) #Hyperlipidemia - -cont crestor -most recent LFTs were wnl #hypoalbuminemia - -AST was also elevated at presentation but then normalized -with morbid obesity at risk of fatty liver and/or cirrhosis -thus checked liver u/s - possible early cirrhotic changes -CT abd/pelvis without acute process that would explain low albumin or his stomach discomforts -GI consult today - need for EGD? 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 #morbid obesity BMI 50s - -would benefit from referral to our weight loss clinic with [facility]; will talk with him about such #lymphedema - -inquired with Dr Santos from cards/vascular about options in the community - the following are options per Dr Santos: -[facility] (local in [place] - they do home visits) for manual Rx -[facility] ([employer] [facility]) - for manual Rx -[facility] - [place] - for manual Rx -compression pumps - [facility] out of [place] #obstructive sleep apnea - -noncompliant with CPAP -has sleep study this summer -refusing NIV while here unfortunately #?cirrhosis / abnormal liver u/s - -low albumin could be explained, in part, by early cirrhosis -is compensated from liver standpoint - no ascites, etc -if he has early cirrhosis suspect he has had long-standing fatty liver -send to GI post-d/c #macrocytosis - -folate wnl -TSH wnl -B12 level low-normal; s/p IM B12 x 7 days then switched to PO B12; plan 4-6 months of Rx -sent copper level; pending -liver disease contributing to macrocytosis?? #vitamin D def - -25 [place] vit D level 9 -ergocalciferol 50,000 units qweekly x 8 weeks; first dose 09/23/24 DVT proph - eliquis 5mg BID awaiting final determination from insurance about acute rehab approval; hopefully will hear such on 09/26/24 AM Admission and Anticipated Discharge Date Admission Date: September 16, 2024 Subjective patient reports NO nausea/emesis today able to eat today and keep everything down no abd pain still having loose stools L calf pain that he had yesterday has resolved denies any new complaints Review of Systems Review of Systems: gen - no fevers or chills cv - no chest pain pulm - no dyspnea GI - no abd pain Physical Exam Physical Exam: gen - morbidly obese, NAD, laying in bed comfortably neck - no JVD mouth - MMM heart - irregularly irregular, s1 s2, regular rate lungs - CTA b/l abd - mildly distended, BS+ (hyperactive), nontender ext - massive lymphedema/elephantiasis appearance of both legs; lymphedema extends to distal thighs; pulses b/l feet 2+ skin - severe stasis changes - dark brown skin - extending from feet to knees with crusty appearance/hyperkeratosis of all areas; erythematous skin (cellulitis area) of the proximal anterior L thigh extending laterally - resolved Results & Data Results & Data Vital Signs (Past 12 Hours) Vital Signs Temp Pulse Resp BP Pulse Ox O2 Del Method 09/25/24 14:51 36.9 C 81 18 120/70 94 Room Air 09/25/24 08:00 36.9 C 101 H 20 116/69 93 Room Air Laboratory Results Laboratory Results - last 24 hr 09/25/24 06:23 Sodium 135 L Potassium 3.5 Chloride 101 Carbon Dioxide 29 Anion Gap 5 BUN 9 Creatinine 0.72 Est Cr Clr Drug Dosing 190.8 eGFR 105.90 BUN/Creatinine Ratio 12.5 Glucose 94 Calcium 8.4 L Diagnostic Findings Chest/Abdomen X-ray 09/25/24 12:04 XR abdomen 2V w PA chest CLINICAL HISTORY: Nausea vomit COMPARISON STUDY: 09/16/2024 chest x-ray and abdominal CT of 09/22/2024 FINDINGS: Chest Stable mild cardiomegaly without pulmonary vascular congestion. No effusion, consolidation, or pneumothorax. ABDOMEN: There is grossly stable diffuse predominantly gaseous colonic distention measuring up to 13 cm diameter. No small bowel distention seen. No gross free air. IMPRESSION: 1. No acute findings seen in the chest. 2. Grossly stable colonic distention. ACT 112: Negative or not required by law. Electronically signed by: Oscar Marcos M.D. 09/25/2024 2:04 PM PG Care Time/CCT Total # of Minutes Spent Total Time Spent with Patient: Total time spent is greater than 50% in coordination of care (as documented) at patient's floor/unit and/or counseling patient: Coding Level of Care Code 49619 SUB INP/OBS CARE 2/35MIN Diagnoses Bacteremia R78.81 Sepsis A41.9 Cellulitis L03.90 Atrial fibrillation with RVR I48.91 Lymphedema I89.0 Demand ischemia of myocardium I24.89 Elevated troponin R79.89 Morbid obesity with BMI of 50.0-59.9, adult E66.01; Z68.43 Hypertension I10 Dyslipidemia E78.5 Hypoalbuminemia E88.09 Abnormal finding on imaging of liver R93.2 Vitamin D deficiency E55.9 Macrocytosis D75.89 Colon distention K63.89
--- NOTE | 2024-09-26 11:30 | Gastroenterology Progress Note ---
Date of Service September 26, 2024 Assessment & Plan (1) Nausea and vomiting: Plan: Patient feels significantly better with the addition of reglan. - continue with reglan 10gm IV every 6 hours. - continue with protonix 40mg once daily. Admission and Anticipated Discharge Date Admission Date: September 16, 2024 Supervising Physician Co-Signing Physician Notes Better Subjective Patient has not had any further nausea or vomiting since starting reglan. he is moving his bowels and passing gas. The remainder of the GI ROS was unremarkable. Review of Systems Review of Systems: All systems reviewed & are unremarkable except as noted in HPI & below Physical Exam Constitutional: WD/WN, vitals as above Respiratory: normal respiratory effort, lungs clear to auscultation Cardiovascular: Rate/Rhythm: regular rate and regular rhythm Gastrointestinal (Abdomen): normal bowel sounds, soft, nontender, no hepatosplenomegaly Psychiatric: Orientation: alert and oriented x 3 Affect: euthymic affect Results & Data Results & Data Vital Signs (Past 12 Hours) Vital Signs Temp Pulse Resp BP Pulse Ox O2 Del Method 09/26/24 09:03 Room Air 09/26/24 07:33 98.2 F 89 16 117/71 95 Room Air Coding Level of Care Code 49143 SUB INP/OBS CARE 06/11MIN Diagnoses Nausea and vomiting R11.2
--- NOTE | 2024-09-26 19:51 | Hospitalist Progress Note ---
Date of Service September 26, 2024 Assessment & Plan (1) Bacteremia: (2) Sepsis: (3) Cellulitis: (4) Atrial fibrillation with RVR: (5) Lymphedema: (6) Demand ischemia of myocardium: (7) Elevated troponin: (8) Morbid obesity with BMI of 50.0-59.9, adult: (9) Hypertension: (10) Dyslipidemia: (11) Hypoalbuminemia: (12) Abnormal finding on imaging of liver: (13) Vitamin D deficiency: (14) Macrocytosis: (15) Colon distention: Plan 58yo male with severe, b/l chronic LE lymphedema, permanent a.fib, and morbid obesity admitted with sepsis due to left leg cellulitis and bacteremia. #Sepsis / bacteremia - resolved -bacteremia was 2nd strep dysgalactiae -source - LLE cellulitis, bilateral LE wound infections -repeat blood cx's 09/19 negative -appreciate ID consult - recs: -completed 7 days of IV zosyn -changed to PO augmentin 875mg BID + bactrim DS 2 tabs BID on 09/23/24 -cont both PO abx through 09/29 (this will complete 14 days of IV/PO Rx) -of note - no obvious septic L hip, etc on examination #LLE cellulitis - resolved -Strep dysgalactiae and Alcaligenes faecalis grew from both leg wounds -see discussion re: abx above -CT LLE - no fluid collections, abscess, or nec fasc findings -ID consult appreciated #A. fib RVR - -improved rates; RVR likely due to sepsis at time of admission -cont meto tartrate 50mg BID; consider increasing to 75mg BID as rates are sometimes borderline at rest but leave for now -cont Eliquis 5mg BID -h/o PAF, but has been in a.fib continuously since admission; may have permanent a.fib at this point # nausea, vomiting - -earlier in the admission; had resolved but then symptoms returned -obtained CT a/p due to several months of stomach upset, stomach discomfort, etc -- negative for acute findings -liver u/s - no gall bladder findings - no stones, etc. -lipase & LFTs wnl -checked a c diff due to diarrhea and IV zosyn usage - c diff negative x 2 -gastritis? GERD? gastroparesis? mild ileus (as seen on recent abd x-rays)? -cont carafate QID + PPI daily -symptoms seemed better, then had N/V at dinner on 09/24/24 -asked GI to see in consult -they advised abdominal x-ray series and trial of scheduled reglan -- 10mg IV q6h scheduled -x-rays returned with colonic dilatation -repeat cdiff negative -today his GI symptoms are fully resolved, he is eating well, and he feels well -will need to check with GI about how long to keep reglan on board - I'm assuming short term #Chronic HFpEF - compensated -cont BB -cont torsemide at lower dose of 40mg/day; he is diuresing very well with the lower dose (as opposed to the 100mg he was on at home) -not sure his BPs could support the 100mg dose at this time #Myocardial demand ischemia - -elevated troponin 2nd to such; no evidence of ACS -demand ischemia 2nd to sepsis -peak trop 60s -echo - normal EF, no LV WMAs #HTN - -cont metoprolol tartrate BID -holding losartan -cont torsemide albeit at lower dose of 40mg/day (was on 100mg/day at home) #Hyperlipidemia - -cont crestor -most recent LFTs were wnl #hypoalbuminemia - -AST was also elevated at presentation but then normalized -with morbid obesity at risk of fatty liver and/or cirrhosis -thus checked liver u/s - possible early cirrhotic changes -CT abd/pelvis without acute process that would explain low albumin or his stomach discomforts -GI consult appreciated # nutritional / mood concerns - -B12 level low-normal; on replacement for now -B1 level returned normal -copper level returned normal -?depression - patient denies such but family believes he is indeed depressed -did discuss with him options for Rx for his moods -low vit D will make some of these symptoms worse #prediabetes - -a1c 5.8% #morbid obesity BMI 50s - -would benefit from referral to our weight loss clinic with [facility] #lymphedema - -inquired with Dr Santos from cards/vascular about options in the community - the following are options per Dr Santos: -[facility] (local in [place] - they do home visits) for manual Rx -[facility] ([employer]) - for manual Rx -[facility] - [place] - for manual Rx -compression pumps - [facility] OR [facility] out of [place] #obstructive sleep apnea - -noncompliant with CPAP -has sleep study this summer -refusing NIV while here unfortunately #?cirrhosis / abnormal liver u/s - -low albumin could be explained, in part, by early cirrhosis -is compensated from liver standpoint - no ascites, etc -if he has early cirrhosis suspect he has had long-standing fatty liver -send to GI post-d/c #macrocytosis - -folate wnl -TSH wnl -B12 level low-normal; s/p IM B12 x 7 days then switched to PO B12; plan 4-6 months of Rx -copper level wnl -liver disease could be contributing to macrocytosis #vitamin D def - -25 [place] vit D level 9 -ergocalciferol 50,000 units qweekly x 8 weeks; first dose 09/23/24 DVT proph - eliquis 5mg BID awaiting final determination from insurance about acute rehab approval vs SNF for rehab approval Admission and Anticipated Discharge Date Admission Date: September 16, 2024 Subjective no events overnight no nausea/emesis/abd pain "feels great" denies any leg or calf pain no dyspnea voiding w/o difficulty I updated him on the status of the insurance approving/not approving rehab reported to him that the insurance hired a 3rd green party to find a SNF within a 50 mile radius that could accommodate his needs thus dispo is uncertain Review of Systems Review of Systems: CV - no orthopnea, no chest pain pulm - no dyspnea or [facility] - still with loose stool but c diff negative Physical Exam Physical Exam: gen - morbidly obese, NAD, laying in bed comfortably neck - no JVD mouth - MMM heart - irregularly irregular, s1 s2, regular rate lungs - CTA b/l abd - distension improved, BS+, nontender, no obvious HSM ext - massive lymphedema/elephantiasis appearance of both legs; lymphedema extends to distal thighs; pulses b/l feet 2+; his edema is actually modestly better than last week especially in his feet skin - severe stasis changes - dark brown skin - extending from feet to knees with crusty appearance/hyperkeratosis of all areas; cellulitis area of the proximal anterior L thigh extending laterally - fully resolved Results & Data Results & Data Vital Signs (Past 12 Hours) Vital Signs Temp Pulse Pulse Resp BP Pulse Ox O2 Del Method 09/26/24 15:08 36.6 C 95 H 18 138/80 95 Room Air 09/26/24 12:25 37 C 78 78 16 119/67 95 Room Air 09/26/24 09:03 Room Air Laboratory Results Laboratory Results - last 24 hr 09/17/24 09/23/24 09/26/24 07:53 07:02 01:51 Whole Bld Vitamin B1 113 Stl C. diff Tox B Gene Negative Cdiff Gene Serum Copper 167 PG Care Time/CCT Total # of Minutes Spent Total Time Spent with Patient: Total time spent is greater than 50% in coordination of care (as documented) at patient's floor/unit and/or counseling patient: Coding Level of Care Code 56984 SUB INP/OBS CARE 2/35MIN Diagnoses Bacteremia R78.81 Sepsis A41.9 Cellulitis L03.90 Atrial fibrillation with RVR I48.91 Lymphedema I89.0 Demand ischemia of myocardium I24.89 Elevated troponin R79.89 Morbid obesity with BMI of 50.0-59.9, adult E66.01; Z68.43 Hypertension I10 Dyslipidemia E78.5 Hypoalbuminemia E88.09 Abnormal finding on imaging of liver R93.2 Vitamin D deficiency E55.9 Macrocytosis D75.89 Colon distention K63.89
--- NOTE | 2024-09-27 08:30 | Hospitalist Progress Note ---
Date of Service September 27, 2024 Assessment & Plan (1) Bacteremia: (2) Sepsis: (3) Cellulitis: (4) Atrial fibrillation with RVR: (5) Lymphedema: (6) Demand ischemia of myocardium: (7) Elevated troponin: (8) Morbid obesity with BMI of 50.0-59.9, adult: (9) Hypertension: (10) Dyslipidemia: (11) Hypoalbuminemia: (12) Abnormal finding on imaging of liver: (13) Vitamin D deficiency: (14) Macrocytosis: (15) Colon distention: Plan 58yo male with severe, b/l chronic LE lymphedema, permanent a.fib, and morbid obesity admitted with sepsis due to left leg cellulitis and bacteremia. #Sepsis / bacteremia - resolved Bacteremia, 2nd strep dysgalactiae. Source- LLE cellulitis with b/l LE wound infections WBC normalized, repeat blood cultures NGTD x 5 days. Initial blood cx w/ Strep dysgalactiae (grew w/ alcaligenes faecalis on leg wounds) ID consulted, completed 7 days IV Zosyn --> Transitioned to Augmentin 875mg PO BID + Bactrim DS PO BID on 09/23 and to be continued through 09/29 for 14 day course IV/PO. Of note, no obvious septic L hip/etc on exam #LLE cellulitis - resolved Source for sepsis/bacteremia above. Cx w/ strep dysgalactiae and Alcaligenes faecalis grew from both leg wounds CT LLE - no fluid collections, abscess, or nec fasc findings ID consult appreciated and abx as outlined Torsemide for edema/volume management below Wound RN on consult/following Amlactin cream changed to BID as was prn and last admin on 09/23. Will need ongoing wound care/lymphedema care in f/u #A. fib RVR - in afib w/ RVR on admission likely 2nd to sepsis above Continues on metoprolol 50mg BID, eliquis 5mg BID. Prior hx PAF but had been in continuously and suspect now permanent afib (untreated MARILY as well below) #Chronic HFpEF - hx lower EF but improved on recent ECHO and EF wnl. Continues on metoprolol 50mg PO BID, torsemide 40mg daily (prior provider reporting ~5L output w/ lower dose and lower BP and suspect non-compliance at home) -Had been REFUSING TORSEMIDE LAST 3 days --> AGREED to 40mg PO x 1 today 09/27 and will -Suspect refusing since gleason removed and encouraged possible condom cath/urinal and compliance w/ use Monitor weight/volume status on repeat exam # nutritional / mood concerns - suspect large component of depression regarding overall health/mobility leading to current presentation and inability to care for himself at home due to progression of above #Vitamin D deficiency #B12 deficiency B12 low normal (IM x 7 doses provided, continues on PO replacement for now) B1 sent and not low. TSH wnl Vitamin D VERY LOW 9.5 -->Ergocalciferol 34591 units WEEKLY x 8 weeks recommended. First dose was 09/23 and have added for 09/30 to ensure continued at dc but should be continued x 2 months and repeat level w/ PCP in follow up for continued use Ongoing discussion regarding possible start cymbalta/gabapentin or other SSRI if agreeable. Continued support #lymphedema - chronic/progressive w/ cellulitis/sepsis on admission. Prior seen by lymphedema specialist but lost to follow up. Recent switch to insurance and to see [employer] Prior provider reached out to Dr Santos about options in community as follows: -[facility] (local in [place] - they do home visits) for manual Rx -[facility] - for manual Rx -[facility] [place] - for manual Rx -compression pumps - [facility] out of [place] Continue wound care, elevation, diuretics above #Nausea, vomiting - improved/resolved Occurred earlier in admission, resolved but then returned. CTAP obtained, negative for acute findings. Liver US w/o GB findings (mild cirrhosis?). Lipase/LFTS wnl. Cdiff checked on abx - negative. Pepcid 20mg IV and carafate added + PPI daily and improved but n/v during dinner 09/24 GI consulted, xray series obtained and noted colonic dilatation and although recent cdiff negative repeat cdiff 09/26 obtained and again negative Placed on reglan 10mg IV q6h and tolerating diet. Continue PPI once daily, carafate QID. Continue reglan but hopefully able to dc (?anxiety component about dispo) Notable had been refusing his torsemide and agreeable today. Monitor w/ response #obstructive sleep apnea - reports sleep study this summer (?if was ever done) . Trial CPAP inpatient but did not tolerate. Should be discussed in f/u and consideration alternative mask. Suspect cause for permanent afib 2nd to untreated MARILY #abnormal liver u/s , ?cirrhosis #hypoalbuminemia AST was also elevated but normalized. No alcohol use. CTAP w/o acute process and GI consulted and no EGD planned. ?morbid obesity w/ progressive fatty liver, possible early cirrhotic changes Rec outp f/u GI for possible EGD/c-scope for screening purposes and for fatty liver disease #HTN, #Hyperlipidemia Continues on metoprolol 50mg PO BID. Also typically on losartan which has been held w/ continued diuretic use and compliance w/ torsemide recommended/encouraged Monitor/adj as needed #prediabetes, morbid obesity w/ BMI in 50s - A1c 5.8, no prior hx DM Did discuss A1c and counseling at [facility]. Suspected benefit from weight loss clinic w/ [facility] at [facility], consideration for ozempic/mounjaro for weight loss and will have ongoing discussion #Myocardial demand ischemia -elevated troponin 2nd to such; no evidence of ACS and demand ischemia suspected 2nd to sepsis. Peaked troponin to 60s. ECHO w/o wma, normal EF DVT proph - eliquis 5mg BID continued Dispo: continued inpatient stay on abx/need for rehab/SNF prior to returning home. Awaiting final determination from insurance about acute rehab approval -->per CM note 09/27, awaiting determination from [facility] - does not want to go far away for rehab, also sent referral to [facility] Admission and Anticipated Discharge Date Admission Date: September 16, 2024 Supervising Physician Co-Signing Physician Notes The patient was not seen by me. The chart was reviewed. Case discussed with HARSHAL Acharya. Agree with assessment and plan Subjective Eval this morning, sitting up in chair eating lunch. Improvement in nausea on reglan, no vomiting. Some loose stools but no abd pain/significant diarrhea. Wound care following, amlactin cream changed to scheduled BID to prevent missing doses. Working on insurance/rehab, discussed some pain to posterior L calf. Will order additional torsemide for edema small dose this afternoon. Did discuss consideration for gabapentin vs cymbalta for pain/mood and will revisit in AM. No CP/palpitations. No increased SOB. Unable to tolerate CPAP mask but encouraged outpt f/u discussion for alternative masks. Questions/concerns addressed at this time. Physical Exam Physical Exam: gen - 58 yo male sitting up in recliner chair, morbidly obese, appears improved, reports feeling better HEENT: head atraumatic, +facial hair, trachea midline, mmm Resp: even/unlabored but diminished in the bases, no wheezing/rales, able to speak in complete sentences, occ nonproductive cough, on room air 92% CV: irregularly irregular, rates 80s, b/l lymphedema/elephantiasis, 2+ pitting edema GI: +BS, slight distension but soft, nontender no gleason MSK/Neuro:generalized weakness but nonfocal, not confused, answering questions appropriately Skin: severe stasis changes, dark brown skin with cracking/crusting appearance/hyperkeratosis of all areas. cellulitis MUCH improved proximal anterior L thigh laterally -- full resolved * massive lymphedema/elephantiasis appearance of both legs; lymphedema extends to distal thighs; pulses b/l feet 2+; his edema is actually modestly better than last week especially in his feet but remains unchanged from day prior Psych: alert/oriented, pleasant/cooperative but flat affect/depressed at times Results & Data Results & Data Vital Signs (Past 12 Hours) Vital Signs Temp Pulse Resp BP Pulse Ox O2 Del Method 09/27/24 07:33 36.8 C 87 22 112/68 92 Room Air 09/26/24 21:30 36.8 C 92 H 18 125/73 93 Room Air Laboratory Results 09/27/24 09/23/24 Range/Units 09:26 07:02 Sodium 133 L (136-145) mmol/L Potassium 3.6 (3.5-5.1) mmol/L Chloride 104 (98-107) mmol/L Carbon Dioxide 23 (21-32) mmol/L Anion Gap 6 (3-11) BUN 8 (6-23) mg/dl Creatinine 0.66 (0.6-1.4) mg/dl Est Cr Clr Drug Dosing 208.1 ml/min eGFR 108.72 BUN/Creatinine Ratio 12.1 (10-20) Glucose 99 (70-99(Fasting)) mg/dl Calcium 8.6 (8.6-10.3) mg/dl Magnesium 1.9 (1.7-2.4) mg/dl B-Natriuretic Peptide 189 H (0-100) pg/ml Serum Copper 167 (70-175) mcg/dL PG Care Time/CCT Total # of Minutes Spent Total Time Spent with Patient: Total time spent is greater than 50% in coordination of care (as documented) at patient's floor/unit and/or counseling patient: Coding Level of Care Code 24158 SUB INP/OBS CARE 3/50MIN Diagnoses Bacteremia R78.81 Sepsis A41.9 Cellulitis L03.90 Atrial fibrillation with RVR I48.91 Lymphedema I89.0 Demand ischemia of myocardium I24.89 Elevated troponin R79.89 Morbid obesity with BMI of 50.0-59.9, adult E66.01; Z68.43 Hypertension I10 Dyslipidemia E78.5 Hypoalbuminemia E88.09 Abnormal finding on imaging of liver R93.2 Vitamin D deficiency E55.9 Macrocytosis D75.89 Colon distention K63.89
[2024-09-27] MEDS ORDERED: CHOLECALCIFEROL 125 MCG (5,000 UNITS) TAB PO SCH (09:00)
[2024-09-27] MEDS: AMMONIUM LACTATE 12% LOTION 225 GM BTL EXT SCH (11:02)
[2024-09-27 11:21] LABS: BUN Creatinine Ratio 12.1 (10-20); Calcium 8.6 mg/dl (8.6-10.3); Creatinine Clr Calc Pharmacy 208.1 ml/min; Magnesium 1.9 mg/dl (1.7-2.4); Potassium 3.6 mmol/L (3.5-5.1)
[2024-09-27] MEDS: TORSEMIDE 20 MG TAB PO ONE (13:05)
[2024-09-27] MEDS ORDERED: TORSEMIDE 20 MG TAB PO ONE (14:00)
[2024-09-27] MEDS: METOCLOPRAMIDE HCL INJ 5 MG/ML 2 ML VIAL IV SCH (17:46)
[2024-09-27] MEDS: LORazepam 0.5 MG TAB PO STA (17:46)
[2024-09-27] MEDS: METOPROLOL SUCC 50MG EXT REL TAB PO SCH (21:25)
[2024-09-28 08:26] LABS: Hematocrit (blood only) 36.4 % (42.0-52.0); Hemoglobin 12.6 g/dl (14.0-18.0); Mean Corpuscular Hemoglobin 35.2 pg (25.0-34.0); Mean Corpuscular Hgb Conc 34.6 g/dL (32.0-36.0); Mean Corpuscular Volume 101.7 fL (80.0-100.0); Platelet Count 343 K/uL (130-400); RDW Coefficient of Variation 14.1 % (11.5-14.5); RDW Standard Deviation 52.1 fL (36.4-46.3); Red Blood Count 3.58 M/uL (4.70-6.10)
--- NOTE | 2024-09-28 08:48 | Hospitalist Progress Note ---
Date of Service September 28, 2024 Assessment & Plan (1) Bacteremia: (2) Sepsis: (3) Cellulitis: (4) Atrial fibrillation with RVR: (5) Lymphedema: (6) Demand ischemia of myocardium: (7) Elevated troponin: (8) Morbid obesity with BMI of 50.0-59.9, adult: (9) Hypertension: (10) Dyslipidemia: (11) Hypoalbuminemia: (12) Abnormal finding on imaging of liver: (13) Vitamin D deficiency: (14) Macrocytosis: (15) Colon distention: Plan 58yo male with severe b/l chronic LE lymphedema, permanent a.fib, CHF, morbid obesity from home (disheveled/unkept/not well nourished) with SEPSIS 2nd to left leg cellulitis and found to be bacteremic. Blood cultures with strep dysgalactiae (cx from legs with strep + alcaligenes faecalis) and ID consulted and completed course Zosyn x 7 days and converted to Augmentin 875mg PO BID + Bactrim DS PO BID on 09/23 and to be continued through 09/29 for 14 day course IV/PO. Ongoing inpatient stay for wound care and need for rehab/insurance issues #Sepsis / bacteremia - resolved, completing course 14 days (EOT 09/29) with Au gmentin/Bactrim for 14 day course per ID. Of note, no obvious septic L hip/etc on exam #LLE cellulitis - resolved, source for sepsis, cellulitis on CT (no fluid collections, abscess or nec fasc). Torsemide as outlined, elevation #Lymphedema - chronic/progressive w/ cellulitis/sepsis on admission. Prior seen by lymphedema specialist but lost to follow up. Recent switch to insurance and to see [facility] Cards Prior provider reached out to Dr Santos about options in community as follows: [facility] (local in [place] - they do home visits) for manual Rx, [facility] ([email or web address] [place]) - for manual Rx. [facility] - for manual Rx. compression pumps - [facility] OR [facility] out of [place]. Continue wound care, Amlactin changed to BID SCHEDULED. Continue elevation, diuretics as agreeable for assistance w/ edema/CHF Will need ongoing wound care/lymphedema care in f/u #A. fib RVR - in afib w/ RVR on admission likely 2nd to sepsis above. Continued on metoprolol which was resumed 25mg BID (on 100mg succinate daily) and increased to 50mg BID 09/23 however given borderline BP and needing more for HR control converted to metoprolol SUCCINATE 50mg BID evening 09/27 and consider switching back to 100mg daily for AM if BP tolerates or in next 2-3 days. Also rec tx MARILY/CPAP as agreeable but did not tolerate mask in house. Suspect given continuous in afib on monitor is now permanent (prior paroxysmal reported) Remains on eliquis 5mg BID #Chronic HFpEF - hx lower EF but improved on recent ECHO and EF wnl. Continues on metoprolol BID but switched to SUCCINATE Torsemide 40mg daily (outpatient to be on 100mg but suspect was not compliant) Took 40mg torsemide 09/23, 09/24 but refused 09/25-09/27 but had improvement in edema/volume status and was agreeable to dose in afternoon 09/27 (UOP 2.2L for net negative 1.7L) --> Suspect without catheter is embarrassed to ask for help and declined dose for today 09/28 however as discussed his n/v and +JVD on hepatojugular reflux indicating possibly related to hepatic congestion and would rec compliance (also cannot r/o anxiety/depression contributing) however does have some dizziness w/ standing and will check orthostatic VS/adj diuretics accordingly, ?maybe ok w/ 20mg dose if better compliance now that EF improved? Monitor volume status in AM #Nausea, vomiting - intermittent/waxin and waning. CTAP obtained and negative acute findings, Liver US w/ ?mild cirrhosis but normal lipase/LFTs. Cdiff negative x 2 and GI consulted and KUB w/ colonic dilatation Reglan IV scheduled and continued on ppi once daily, carafate but reglan stopped and has repeat episode but moving bowels, ?unclear cause, ?hepatic congestion, ?vertigo w/ dizziness Notable did have some RUQ pain but ?hepatic congestion vs MSK from vomiting. ?other Reglan changed to 5mg PO AC/HS, protonix increased to BID given reflux sx and orthostatic VS ordered to see if orthostatic hypotension/dizziness contributing # Nutritional deficiencies (Vit D, B12), Mood concerns/suspected depression/a nxiety- suspect large component of depression regarding overall health/mobility leading to current presentation and inability to care for himself at home due to progression of above. TSH wnl, B1 wnl s/p IM B12 x 7 doses, continues on PO - rx at [facility]. Vitamin D VERY LOW 9.5 -->Ergocalciferol 63594 units WEEKLY x 8 weeks recommended. First dose was 09/23 and have added for 09/30 to ensure continued at ut but should be continued x 2 months and repeat level w/ PCP in follow up for continued use. Ongoing discussion regarding possible start cymbalta/gabapentin or other SSRI if agreeable. Continued support and agreed to U consult 09/28 and has been placed #obstructive sleep apnea - reports sleep study this summer (?if was ever done) . Trial CPAP inpatient but did not tolerate but encouraged f/u discussion PCP about another mask/encourage use if agreeable #abnormal liver u/s , ?cirrhosis, #Hypoalbuminemia AST was also elevated but normalized. No alcohol use. CTAP w/o acute process and GI consulted and no EGD planned. ?morbid obesity w/ progressive fatty liver, possible early cirrhotic changes Rec outp f/u GI for possible EGD/c-scope for screening purposes and for fatty liver disease #HTN, #Hyperlipidemia - stable at present. Metoprolol changed to succinate. Losartan held given borderline BP and checking orthostatics given dizziness w/ standing Continues on statin #prediabetes, morbid obesity w/ BMI in 50s - A1c 5.8, no prior hx DM. Discussed w/ patient and will need counseling at [facility]. Rec f/u [facility] weight loss clininc/co nsider injectable for weight loss/fatty liver as well #Myocardial demand ischemia --elevated troponin 2nd to such; no evidence of ACS and demand ischemia suspected 2nd to sepsis. Peaked troponin to 60s. ECHO w/o wma, normal EF DVT proph - eliquis 5mg BID Dispo: continued inpatient stay, completion 14d abx 09/29. Adj to reflux meds as above, monitoring orthostatic VS. CM working on ref for [facility], possibly to accept 09/29., U liasion for support Will need ongoing wound care/lymphedema care at [facility] New rx for metoprolol adjustment, torsemide, B12, Vit D and close f/u with PCP at [facility] Admission and Anticipated Discharge Date Admission Date: September 16, 2024 Supervising Physician Co-Signing Physician Notes The patient was not seen by me. The chart was reviewed. Case discussed with HARSHAL Acharya. Agree with assessment and plan Subjective Eval this morning around 11am, just vomited about 30 minutes ago. Reports was food, felt like reflux with some burning but also had some dizziness w/ ambulation. Declined torsemide this morning but edema to legs improved. Discussed use today even lower dosing but he wants to hold off. Discussed still with JVD and could have aspect of nausea related to volume but did also endorse component of anxiety related to dispo/health. Agreeable to [facility] consult for supportive care, consideration for Cymbalta discussed again. Does have some RUQ discomfort on exam. Possible acceptance to [facility] for rehab tomorrow as discussed if improvement in nausea. Changing PPI to BID, and adding bentyl for possible biliary colic. Physical Exam Physical Exam: gen - 58 yo male laying in bed, just getting cleaned up from diarrhea/working wi th therapy, NAD but flat affect, appears depressed HEENT: head atraumatic, +facial hair, trachea midline, mmm Resp: even/unlabored but diminished in the bases, no wheezing/rales, able to speak in complete sentences, occ nonproductive cough, on room air 93% CV: irregularly irregular, rates 80s, b/l lymphedema/elephantiasis, 2+ pitting edema (improved today following diuretics yesterday) GI: +BS, slight distension but soft, no overt tenderness but mild discomfort RUQ/costal margin no gleason MSK/Neuro:generalized weakness but nonfocal, not confused, answering questions appropriately, worked with therapy and reports walked in the halls today Skin: severe stasis changes, dark brown skin with cracking/crusting appearance/hyperkeratosis of all areas. cellulitis MUCH improved proximal anterior L thigh laterally -- full resolved * massive lymphedema/elephantiasis appearance of both legs; lymphedema extends to distal thighs; pulses b/l feet 2+; his edema is actually modestly better than last week especially in his feet but remains unchanged from day prior Psych: alert/oriented, pleasant/cooperative but flat affect/depressed at times (worse today) Results & Data Results & Data Vital Signs (Past 12 Hours) Vital Signs Temp Pulse Resp BP Pulse Ox O2 Del Method 05/14/25 07:22 36.8 C 95 H 16 119/77 93 Room Air 09/27/24 21:22 36.6 C 106 H 16 125/71 96 Room Air 09/27/24 21:15 Room Air PG Care Time/CCT Total # of Minutes Spent Total Time Spent with Patient: Total time spent is greater than 50% in coordination of care (as documented) at patient's floor/unit and/or counseling patient: Coding Level of Care Code 94926 SUB INP/OBS CARE 3/50MIN Diagnoses Bacteremia R78.81 Sepsis A41.9 Cellulitis L03.90 Atrial fibrillation with RVR I48.91 Lymphedema I89.0 Demand ischemia of myocardium I24.89 Elevated troponin R79.89 Morbid obesity with BMI of 50.0-59.9, adult E66.01; Z68.43 Hypertension I10 Dyslipidemia E78.5 Hypoalbuminemia E88.09 Abnormal finding on imaging of liver R93.2 Vitamin D deficiency E55.9 Macrocytosis D75.89 Colon distention K63.89
[2024-09-28 08:49] LABS: BUN Creatinine Ratio 12.4 (10-20); Calcium 8.8 mg/dl (8.6-10.3); Creatinine Clr Calc Pharmacy 154.3 ml/min; Magnesium 1.9 mg/dl (1.7-2.4); Potassium 3.5 mmol/L (3.5-5.1)
[2024-09-28] MEDS: POTASSIUM CHLORIDE 10 MEQ TABCR PO STA (09:18)
[2024-09-28] MEDS ORDERED: METOCLOPRAMIDE HCL INJ 5 MG/ML 2 ML VIAL IV SCH (12:00)
[2024-09-28] MEDS: METOCLOPRAMIDE HCL 5 MG TABLET PO SCH (12:39)
[2024-09-28] MEDS: PANTOprazole 40 MG TAB PO SCH (21:54)
[2024-09-28] MEDS: ACETAMINOPHEN 500 MG TAB PO PRN (21:59)
[2024-09-29 07:05] LABS: Hematocrit (blood only) 35.9 % (42.0-52.0); Mean Corpuscular Hemoglobin 35.1 pg (25.0-34.0); Mean Corpuscular Hgb Conc 33.4 g/dL (32.0-36.0); Mean Platelet Volume 9.2 fL (9.4-12.4); Platelet Count 284 K/uL (130-400); RDW Coefficient of Variation 14.3 % (11.5-14.5); RDW Standard Deviation 55.1 fL (36.4-46.3); Red Blood Count 3.42 M/uL (4.70-6.10); White Blood Count 5.06 K/ul (4.8-10.8)
[2024-09-29 07:22] LABS: BUN Creatinine Ratio 12.5 (10-20); Bilirubin Direct 0.1 mg/dl (0-0.2); Bilirubin,Total 0.4 mg/dl (0.2-1.0); Calcium 8.7 mg/dl (8.6-10.3); Creatinine Clr Calc Pharmacy 146.9 ml/min; Magnesium 1.9 mg/dl (1.7-2.4); Potassium 3.4 mmol/L (3.5-5.1); Total Protein 8.4 gm/dl (6.0-8.3)
[2024-09-29] MEDS: TORSEMIDE 20 MG TAB PO SCH (07:38)
[2024-09-29] MEDS: POTASSIUM CHLORIDE CRTAB 20 MEQ TABCR PO STA (07:48)
--- NOTE | 2024-09-29 08:32 | Hospitalist Progress Note ---
Date of Service September 29, 2024 Assessment & Plan (1) Bacteremia: (2) Sepsis: (3) Cellulitis: (4) Atrial fibrillation with RVR: (5) Lymphedema: (6) Demand ischemia of myocardium: (7) Elevated troponin: (8) Morbid obesity with BMI of 50.0-59.9, adult: (9) Hypertension: (10) Dyslipidemia: (11) Hypoalbuminemia: (12) Abnormal finding on imaging of liver: (13) Vitamin D deficiency: (14) Macrocytosis: (15) Colon distention: Plan 58yo male with severe b/l chronic LE lymphedema, permanent a.fib, CHF, morbid obesity from home (disheveled/unkept/not well nourished) with SEPSIS 2nd to left leg cellulitis and found to be bacteremic. Blood cultures with strep dysgalactiae (cx from legs with strep + alcaligenes faecalis) and ID consulted and completed course Zosyn x 7 days and converted to Augmentin 875mg PO BID + Bactrim DS 2 tablets PO BID on 09/23 and to be continued through 09/29 for 14 day course IV/PO. Ongoing inpatient stay for wound care and need for rehab/insurance issues #Sepsis / bacteremia - resolved, completing course 14 days (EOT 09/29) with Augmentin/Bactrim for 14 day course per ID. Of note, no obvious septic L hip/etc on exam #LLE cellulitis - resolved, source for sepsis, cellulitis on CT (no fluid col lections, abscess or nec fasc). Torsemide as outlined, elevation. Procal to 0.26 on repeat from 14.7 #Lymphedema - chronic/progressive w/ cellulitis/sepsis on admission. Prior seen by lymphedema specialist but lost to follow up, w recent switch to insurance and to see [facility]. Continue wound care, Amlactin BID SCHEDULED. Elevation, diuretics (decreased dosing as below), will need ongoing wound/lymphedema care at [place] Prior provider reached out to Dr Santos about options in community as follows: [facility] (local in [place] - they do home visits) for manual Rx, [facility] ([employer]) - for manual Rx. [facility] - for manual Rx. compression pumps - [facility] OR [facility] out of [place]. #A. fib RVR - in afib w/ RVR on admission likely 2nd to sepsis above. Prior paroxysmal but had been consistent on telemetry and suspect w/ untreated MARILY now permanent Metoprolol initially held and resumed at 25mg BID and eventual increase to 50mg BID but suspecting needing better HR control and on tartrate w/ prior succinate use -->Converted metoprolol to succinate 50mg BID 09/27 and HR appears improved -if BP tolerates can convert to 100mg daily in next day or so (or at rehab) K replacement today for K 3.4 likely from taking the torsemide use, will aim to keep mag/K replete Cont eliquis 5mg BID #Chronic HFpEF - hx lower EF but improved on recent ECHO and EF wnl. 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 (suspect non-compliance, did endorse taking 1/2 tablet daily) --> had taken 09/23, 09/24 but refused 09/25- 09/27 following gleason removal but agreed to dose afternoon 09/27 *Reported dizziness w/ standing 09/28 and orthostatic VS obtained and were POSITIVE 09/28--> held off torsemide 09/28 -->Resumed torsemide at lower dose, 20mg daily ->No further dizziness --> Have asked for sign for standing scale weight only --> Weight DOWN 167.3kg and suspect prior inaccurate but has had diuresis w/ IV/PO as above Losartan on HOLD for BP, monitor to resume Monitor weights/volume status #Nausea, vomiting - intermittent/waxing and waning. Repeat emesis 09/28 but ?2nd to dizziness/orthostatic hypotension working w/ PT? CTAP obtained prior, neg acute finding. Liver US ?mild cirrhosis, ?2nd to fatty liver. Moving bowels, diarrhea --> cdiff negative x 2. GI consulted (see prior note) Reglan IV scheduled but suspect contributing to issues/fatigue --> changed to 5mg AC/HS and continued on PPI BID/carafate and improvement in PO intake without further n/v 09/29 reported and CXR w/o PNA --> Continue PPI BID, carafate for now and reglan 5mg AC/HS but suspect able to wean off the reglan # Nutritional deficiencies (Vit D, B12), Mood concerns/suspected depression/anxiety - suspect large component of depression regarding overall health/mobility leading to current presentation and inability to care for himself at home due to progression of above. TSH wnl, B1 wnl s/p IM B12 x 7 doses, continues on PO - rx at [place]n. Vitamin D VERY LOW 9.5 -Ergocalciferol 51372 units WEEKLY x 8 weeks recommended. -First dose was 09/23 and have added for 09/30 to ensure continued at tn but should be continued x 2 months and repeat level w/ PCP in follow up for continued use. Continued support and agreed to [facility] consult 09/28 and has been placed and felt was helpful. Encouraged f/u outpatient for counseling/support, consideration to start meds if agreeable #MARILY - reports sleep study this summer (?if was ever done) . Trial CPAP inpatient but did not tolerate but encouraged f/u discussion PCP about another mask/encourage use if agreeable #Abnormal liver u/s ?cirrhosis, #Hypoalbuminemia AST was also elevated but normalized. No alcohol use. CTAP w/o acute process and GI consulted and no EGD planned. ?morbid obesity w/ progressive fatty liver, possible early cirrhotic changes Rec outp f/u GI for possible EGD/c-scope for screening purposes and for fatty liver disease #HTN #Hyperlipidemia - stable at present. Metoprolol changed to succinate above and BPs stable. Torsemide adj as outlined, reduced for +orthostatic VS. Losartan on hold given borderline BP prior and EF normalized and will hold off given orthoVS and can resume in f/u outpatient if needed Continues on statin #Prediabetes, morbid obesity w/ BMI 50 - A1c 5.8, no prior hx DM. Discussed w/ patient and will need counseling at [place]. Rec f/u [facility] weight [facility]/consider injectable for weight loss/fatty liver as well #Myocardial demand ischemia --elevated troponin 2nd to such; no evidence of ACS and demand ischemia suspected 2nd to sepsis. Peaked troponin to 60s. ECHO w/o wma, normal EF #DVT proph - eliquis 5mg BID continued Dispo: continued inpatient stay and completing abx this evening. Did have temp 38.1C overnight but WBC wnl/UA not appearing infected and CXR without acute finding. ?viral vs medication/abx related. Decision to continue to completion this evening and will monitor. If no further fevers and no infectious sx present themselves can plan for dc to [facility] 09/30 Will need rx for metoprolol adj, torsemide. New rx B12, Vit D CLOSE f/u PCP, wound/lymphedema clinic as well as cards, counseling Admission and Anticipated Discharge Date Admission Date: September 16, 2024 Supervising Physician Co-Signing Physician Notes The patient was not seen by me. The chart was reviewed. Case discussed with HARSHAL Acharya. Agree with assessment and plan Subjective Eval this morning, no further nausea/vomiting. Did report some chills and n otable recorded fever overnight up to 38.1C. Urinary frequency from diuretics but no burning/dysuria but checking UA and CXR given prior vomiting. Discussed could be medication related- does have slight pink rash to R flank but non-itchy and only 1 more dose abx this evening and will monitor but rec to complete. No increased shortness of breath, no CP. Took torsemide 20mg today, no further lightheaded/dizziness with standing. Did admit to taking 1/2 tablet at home but will continue lower dose. Standing scale weight down significantly and edema stable. Amlactin continued to legs. If no infectious etiology found and no further temps/feeling ok overnight plan for [facility] tomorrow. Questions/concerns addressed at this time. Physical Exam Physical Exam: gen - 58 yo male laying in bed, just getting cleaned up from diarrhea/working with therapy, NAD but flat affect, appears depressed HEENT: head atraumatic, +facial hair, trachea midline, mmm Resp: even/unlabored but diminished in the bases, no wheezing/rales, able to speak in complete sentences, occ nonproductive cough, on room air 93% CV: irregularly irregular, rates 80s, b/l lymphedema/elephantiasis, 2+ pitting edema (improved today following diuretics yesterday) GI: +BS, slight distension but soft, no overt tenderness but mild discomfort RUQ/costal margin no gleason MSK/Neuro:generalized weakness but nonfocal, not confused, answering questions appropriately, worked with therapy and reports walked in the halls today Skin: severe stasis changes, dark brown skin with cracking/crusting appearance/hyperkeratosis of all areas. cellulitis MUCH improved proximal anterior L thigh laterally -- full resolved * massive lymphedema/elephantiasis appearance of both legs; lymphedema extends to distal thighs; pulses b/l feet 2+; his edema is actually modestly better than last week especially in his feet but remains unchanged from day prior Psych: alert/oriented, pleasant/cooperative but flat affect/depressed at times (worse today) Results & Data Results & Data Vital Signs (Past 12 Hours) Vital Signs Temp Pulse Resp BP Pulse Ox O2 Del Method 09/29/24 07:39 37.2 C 82 16 117/78 93 Room Air 09/29/24 00:40 37.2 C 09/28/24 21:57 38.1 C H 09/28/24 20:39 37.7 C H 88 17 124/67 94 Room Air PG Care Time/CCT Total # of Minutes Spent Total Time Spent with Patient: Total time spent is greater than 50% in coordination of care (as documented) at patient's floor/unit and/or counseling patient: Coding Level of Care Code 68237 SUB INP/OBS CARE 3/50MIN Diagnoses Bacteremia R78.81 Sepsis A41.9 Cellulitis L03.90 Atrial fibrillation with RVR I48.91 Lymphedema I89.0 Demand ischemia of myocardium I24.89 Elevated troponin R79.89 Morbid obesity with BMI of 50.0-59.9, adult E66.01; Z68.43 Hypertension I10 Dyslipidemia E78.5 Hypoalbuminemia E88.09 Abnormal finding on imaging of liver R93.2 Vitamin D deficiency E55.9 Macrocytosis D75.89 Colon distention K63.89
--- NOTE | 2024-09-29 09:14 | XRay Report ---
XR chest 1V portable CLINICAL HISTORY: fever COMPARISON STUDY: 09/25/2024 FINDINGS: Single view portable chest unchanged allowing for technical differences. No definite air sp georgie opacity or pleural effusion. There is no pneumothorax or atelectasis. The heart remains mildly en larged. Pulmonary vascularity is unremarkable. Right diaphragm remains elevated most likely on a spice cleaner emily basis. Left diaphragm is obscured but this is likely technical due to lordotic positioning. IMPRESSION: Stable exam; no acute process identified. ACT 112: Negative or not required by law. Electronically signed by: Erica Mcneal M.D. 09/29/2024 9:12 AM
[2024-09-29 11:37] LABS: Appearance Urine Clear (Clear); Bilirubin Urine Negative (Negative); Blood Urine Negative (Negative); Color Urine Yellow; Glucose Urine UA Negative (Negative); Ketones Urine Negative (Negative); Leukocyte Esterase Urine Negative (Negative); Nitrite Urine Negative (Negative); Protein Urine Negative (Negative); Specific Gravity Urine 1.017 (1.000-1.030); Urobilinogen Urine Negative (Negative)
[2024-09-29] MEDS ORDERED: ALUMINUM/MAGNESIUM SUSP 30 ML UDC PO PRN (15:01)
[2024-09-30 07:25] LABS: Hematocrit (blood only) 35.1 % (42.0-52.0); Hemoglobin 11.7 g/dl (14.0-18.0); Mean Corpuscular Hemoglobin 34.8 pg (25.0-34.0); Mean Corpuscular Hgb Conc 33.3 g/dL (32.0-36.0); Mean Corpuscular Volume 104.5 fL (80.0-100.0); Mean Platelet Volume 9.1 fL (9.4-12.4); Platelet Count 260 K/uL (130-400); RDW Coefficient of Variation 14.4 % (11.5-14.5); RDW Standard Deviation 54.9 fL (36.4-46.3); Red Blood Count 3.36 M/uL (4.70-6.10); White Blood Count 4.29 K/ul (4.8-10.8)
[2024-09-30 07:43] LABS: Albumin Globulin Ratio 0.6 (0.9-2); Albumin Level 2.9 gm/dl (3.4-5.0); BUN Creatinine Ratio 14.3 (10-20); Bilirubin,Total 0.4 mg/dl (0.2-1.0); Calcium 8.5 mg/dl (8.6-10.3); Creatinine Clr Calc Pharmacy 152.8 ml/min; Globulin 5.2 gm/dl (2.5-4.0); Magnesium 1.9 mg/dl (1.7-2.4); Potassium 3.4 mmol/L (3.5-5.1); Total Protein 8.1 gm/dl (6.0-8.3)
[2024-09-30 07:47] VITALS: BP 111/68; PULSE 87; RESP 18; TEMP 97.7; O2SAT 98
[2024-09-30 08:29] LABS: ALC (manual) 1.93 K/uL (1.2-3.4); ANC (manual) 1.54 K/uL (1.4-6.5); Eosinophils # (manual) 0.47 K/uL (0-0.50); Eosinophils % (manual) 11 %; Large Granular Lymph % (manual) 21 %; Lymphocytes # (manual) 0.99 K/uL (1.2-3.4); Lymphocytes % (manual) 23 %; Metamyelocytes # (manual) 0.04 K/uL (0-0); Metamyelocytes % (manual) 1 %; Monocytes % (manual) 7 %; Neutrophils # (manual) 1.54 K/uL (1.40-6.50); Neutrophils % (manual) 36 %; Plasma Cells # (manual) 0.04 K/uL (0-0); Plasma Cells % (manual) 1 %
[2024-09-30] MEDS: ERGOCALCIFEROL 1250 MCG (50,000 UNITS) CAP PO SCH (08:40)
--- NOTE | 2024-09-30 08:49 | Hospitalist Progress Note ---
Date of Service September 30, 2024 Assessment & Plan (1) Bacteremia: (2) Sepsis: (3) Cellulitis: (4) Atrial fibrillation with RVR: (5) Lymphedema: (6) Demand ischemia of myocardium: (7) Elevated troponin: (8) Morbid obesity with BMI of 50.0-59.9, adult: (9) Hypertension: (10) Dyslipidemia: (11) Hypoalbuminemia: (12) Abnormal finding on imaging of liver: (13) Vitamin D deficiency: (14) Macrocytosis: (15) Colon distention: Plan 58yo male with severe b/l chronic LE lymphedema, permanent a.fib, CHF, morbid obesity from home (disheveled/unkept/not well nourished) with SEPSIS 2nd to left leg cellulitis and found to be bacteremic. Blood cultures with strep dysgalactiae (cx from legs with strep + alcaligenes faecalis) and ID consulted and completed course Zosyn x 7 days and converted to Augmentin 875mg PO BID + Bactrim DS 2 tablets PO BID on 09/23 and to be continued through 09/29 for 14 day course IV/PO. Ongoing inpatient stay for wound care and need for rehab/insurance issues #Sepsis / bacteremia - resolved, completing course 14 days (EOT 09/29) with Augmentin/Bactrim for 14 day course per ID. Of note, no obvious septic L hip/etc on exam Note temp 38C x 2 evenings, did have slight pink rash to R flank. ?drug reaction. CBC w/ diff today w/ WBC low 4.2, notable eosinophils to 0.47 and suspect related to medications on bactrim/augmentin but have been completed. If otherwise feeling well, CXR no pna, cdiff neg on repeat and UA crystal clear without further n/v and moving his bowels and would rec weekly CBC and monitoring until resolved. Monitor for any infectious sx/return if occurs #LLE cellulitis - resolved, source for sepsis, cellulitis on CT (no fluid collections, abscess or nec fasc). Torsemide as outlined, elevation. Procal to 0.26 on repeat from 14.7 #Lymphedema - chronic/progressive w/ cellulitis/sepsis on admission. Prior seen by lymphedema specialist but lost to follow up, w recent switch to insurance and to see [employer] [facility]. Continue wound care, Amlactin BID SCHEDULED. Elevation, diuretics (decreased dosing as below), will need ongoing wound/lymphedema care at [place] Prior provider reached out to Dr Santos about options in community as follows: [facility] (local in [place] - they do home visits) for manual Rx, [facility] ([facility]) - for manual Rx. [facility] - for manual Rx. compression pumps - [facility] OR [facility] out of [place]. #A. fib RVR - in afib w/ RVR on admission likely 2nd to sepsis above. Prior paroxysmal but had been consistent on telemetry and suspect w/ untreated MARILY now permanent Metoprolol initially held and resumed at 25mg BID and eventual increase to 50mg BID but suspecting needing better HR control and on tartrate w/ prior succinate use -->Converted metoprolol to succinate 50mg BID 09/27 and HR appears improved -if BP tolerates can convert to 100mg daily in next day or so (or at rehab) K replacement today for K 3.4 likely from taking the torsemide use, will aim to keep mag/K replete Cont eliquis 5mg BID #Chronic HFpEF - hx lower EF but improved on recent ECHO and EF wnl. 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 (suspect non-compliance, did endorse taking 1/2 tablet daily) --> had taken 09/23, 09/24 but refused 09/25- 09/27 following gleason removal but agreed to dose afternoon 09/27 *Reported dizziness w/ standing 09/28 and orthostatic VS obtained and were POSITIVE 09/28--> held off torsemide 09/28 -->Resumed torsemide at lower dose, 20mg daily ->No further dizziness --> Have asked for sign for standing scale weight only --> Weight DOWN 167.3kg and suspect prior inaccurate but has had diuresis w/ IV/PO as above Losartan on HOLD for BP, monitor to resume Monitor weights/volume status #Nausea, vomiting - intermittent/waxing and waning. Repeat emesis 09/28 but ?2nd to dizziness/orthostatic hypotension working w/ PT? CTAP obtained prior, neg acute finding. Liver US ?mild cirrhosis, ?2nd to fatty liver. Moving bowels, diarrhea --> cdiff negative x 2. GI consulted (see prior note) Reglan IV scheduled but suspect contributing to issues/fatigue --> changed to 5mg AC/HS and continued on PPI BID/carafate and improvement in PO intake without further n/v 09/29 reported and CXR w/o PNA --> Continue PPI BID, carafate for now and reglan 5mg AC/HS but suspect able to wean off the reglan # Nutritional deficiencies (Vit D, B12), Mood concerns/suspected depress ion/anxiety - suspect large component of depression regarding overall health/mobility leading to current presentation and inability to care for himself at home due to progression of above. TSH wnl, B1 wnl s/p IM B12 x 7 doses, continues on PO - rx at id. Vitamin D VERY LOW 9.5 -Ergocalciferol 18905 units WEEKLY x 8 weeks recommended. -First dose was 09/23 and have added for 09/30 to ensure continued at [place] but should be continued x 2 months and repeat level w/ PCP in follow up for continued use. Continued support and agreed to [facility] consult 09/28 and has been placed and felt was helpful. Encouraged f/u outpatient for counseling/support, consideration to start meds if agreeable #MARILY - reports sleep study this summer (?if was ever done) . Trial CPAP inpatient but did not tolerate but encouraged f/u discussion PCP about another mask/encourage use if agreeable #Abnormal liver u/s ?cirrhosis, #Hypoalbuminemia AST was also elevated but normalized. No alcohol use. CTAP w/o acute process and GI consulted and no EGD planned. ?morbid obesity w/ progressive fatty liver, possible early cirrhotic changes Rec outp f/u GI for possible EGD/c-scope for screening purposes and for fatty liver disease #HTN #Hyperlipidemia - stable at present. Metoprolol changed to succinate above and BPs stable. Torsemide adj as outlined, reduced for +orthostatic VS. Losartan on hold given borderline BP prior and EF normalized and will hold off given orthoVS and can resume in f/u outpatient if needed Continues on statin #Prediabetes, morbid obesity w/ BMI 50 - A1c 5.8, no prior hx DM. Discussed w/ patient and will need counseling at [place]. Rec f/u [facility] weight loss [facility]/consider injectable for weight loss/fatty liver as well #Myocardial demand ischemia --elevated troponin 2nd to such; no evidence of ACS and demand ischemia suspected 2nd to sepsis. Peaked troponin to 60s. ECHO w/o wma, normal EF #DVT proph - eliquis 5mg BID continued Dispo: continued inpatient stay and completing abx this evening. Did have temp 38.1C overnight but WBC wnl/UA not appearing infected and CXR without acute finding. ?viral vs medication/abx related. Decision to continue to completion this evening and will monitor. If no further fevers and no infectious sx present themselves can plan for dc to [facility] 09/30 Will need rx for metoprolol adj, torsemide. New rx B12, Vit D CLOSE f/u PCP, wound/lymphedema clinic as well as cards, counseling Admission and Anticipated Discharge Date Admission Date: September 16, 2024 Results & Data Results & Data Vital Signs (Past 12 Hours) Vital Signs Temp Pulse Resp BP Pulse Ox O2 Del Method 09/30/24 07:45 36.5 C 87 18 111/68 98 Room Air 09/30/24 02:12 36.6 C 09/29/24 21:01 37.4 C 09/29/24 20:49 38 C H PG Care Time/CCT Total # of Minutes Spent Total Time Spent with Patient: Total time spent is greater than 50% in coordination of care (as documented) at patient's floor/unit and/or counseling patient: Coding Diagnoses Bacteremia R78.81 Sepsis A41.9 Cellulitis L03.90 Atrial fibrillation with RVR I48.91 Lymphedema I89.0 Demand ischemia of myocardium I24.89 Elevated troponin R79.89 Morbid obesity with BMI of 50.0-59.9, adult E66.01; Z68.43 Hypertension I10 Dyslipidemia E78.5 Hypoalbuminemia E88.09 Abnormal finding on imaging of liver R93.2 Vitamin D deficiency E55.9 Macrocytosis D75.89 Colon distention K63.89
[2024-09-30] MEDS: POTASSIUM CHLORIDE CRTAB 20 MEQ TABCR PO STA (09:27)
--- NOTE | 2024-09-30 10:26 | Discharge Summary ---
Discharge Summary Date of Service September 30, 2024 Principal Dx & Hospital Course #1 = Principal Diagnosis (1) Bacteremia: (2) Sepsis: (3) Cellulitis: (4) Atrial fibrillation with RVR: (5) Lymphedema: (6) Demand ischemia of myocardium: (7) Elevated troponin: (8) Morbid obesity with BMI of 50.0-59.9, adult: (9) Hypertension: (10) Dyslipidemia: (11) Hypoalbuminemia: (12) Abnormal finding on imaging of liver: (13) Vitamin D deficiency: (14) Macrocytosis: (15) Colon distention: [facility] 58yo male with severe b/l chronic LE lymphedema, permanent a.fib, CHF, morbid obesity from home presented with fever, vomiting, generalized weakness, LLE swelling/erythema with hypoxia and evidence for sepsis on admission with elevated lactic 2.6, procal 13.4, WBC 12.4k and temp 38.9C on admission. EKG w/ afib w RVR, elevated troponin suspected 2nd to infection (no wma on echo) CT imaging LLE with Diffuse subcutaneous fat swelling, edema b/l thighs, medial aspect, cellulitis +/- generalized body edema. BP hypotensive and IVF bolus provided but cautious w/ hx CHF and almost required pressors/ICU however did respond to treatment without need for ICU transfer. Blood cultures resulted with strep dysgalactiae from 09/16. Cx from L leg drainage w/ strep + alcaligenes faecalis and ID was consulted. ECHO did not show any vegetation, EF actually improved from prior and 60-65% Patient was placed on Dapto/Zosyn on admission and de-escalated to Zosyn and completed 7 days IV therapy and eventually converted to Augmentin 875mg PO BID + Bactrim DS 2 tablets PO BID on 09/23 and completed 14 day course on 09/29. Repeat procal improved to 0.26 prior to discharge. Has been evaluated by wound care and to continue amlactin BID and lymphedema therapy/cardiology follow up recommended at sd. Preference for [facility] for lymphedema therapy at discharge as they do home visits and hopefully will be able to improve compliance in follow up. LLE cellulitis resolved, WBC wnl but do note did have temp 38C x 2 however repeat UA crystal clear. Did have episode of nausea/vomiting prior and CXR w/o evidence for pneumonia, has not been hypoxic and had been continued on eliquis BID on admission. Cdiff negative x 3. Did have faint rash to R flank (did not appear like shingles) but did note elevated plasma cells/metamyelocytes on differential as well as eosinophils and suspect related to medication (possibly bactrim) however LFTs wnl and feeling well otherwise and did complete course of antibiotics. Peripheral smear sent prior to dc and no rouleoux formation or findings consistent w/ myeloma and rec to continue to monitor for any worsening rash/fever and rec to monitor CBC weekly to ensure resolution. Also consulted [facility] liasion for support/depression as suspect large component of how got to be septic due to depression/lack of social interaction and progressive lymphedema. [place] very helpful to talk with someone. No SI/HI and encouraged continued followup at discharge for counseling and can consider SSRI/other if agreeable. Do note had changed metoprolol to 50mg BID at discharge and decreased his torsemide to 20mg daily (not compliant w/ prior 100mg dose) given was provided 40mg 3 days ago (after skipping 2-3 days) and reported dizziness with + orthostatic VS and no further sx with reduction and has had stable kidney function and weights continued to decrease. Weight on admission listed at 193kg (425lb) and was 195kg at PCP office in August so could have been close to accurate if PCP w/ standing scale as well. Weight down to 165.4kg prior to discharge and had significant improvement in leg edema and ability for ambulation. Also discussed +JVD prior which has improved and suspect some of his prior n/v from hepatic congestion in patient w/ possible fatty liver vs early cirrhosis on imaging without alcohol use history. Therapy was consulted and undertaken and recommendations for inpatient rehab/skilled prior to returning home and also encouraged such to improve outcomes and get stronger prior to returning home with home health services to improve overall health/prevent readmission. Updated provider at [facility] regarding case and CM arranged for transport this afternoon. Problems: #Sepsis, Bacteremia, LLE Cellulitis - completed 14day course abx as outlined above. Repeat blood cx NGTD x 5 days. Fever as outlined above suspected drug related and should monitor now that completed abx #Lymphedema - chronic, progressive, severe w/ cellulitis and sepsis 2nd to such on admission. Wound RN consulted, to continue amlactin BID (scheduled), elevation and diuretics as adjusted below Prior provider spoke w/ Dr Santos (pt to switching to [employer] cards) and recs for lymphedema treatment options at sd in the [facility] (local in [place] - they do home visits) for manual Rx, [facility] ([facility]) - for manual Rx. [facility] - for manual Rx. compression pumps - [facility] OR [facility] out of [place]. --> Patient pref [facility] at [facility] from rehab if able to arrange for HOME visits please #Afib w RVR - on admission 2nd to sepsis/above. Suspected now PERMANENT, should have f/u re: sleep study/CPAP. Metoprolol resumed as held initially w/ hypotension/sepsis and increased to 50mg BID but needing for HR control and tartrate switched to succinate and HR much better controlled and improvement in BP. Consider switching to once daily in next 1-2 days if BPs continue to tolerate. Remained on eliquis 5mg BID #Chronic HFpEF - hx lower EF but improved on recent ECHO and EF wnl. 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 Could consider adding low dose spironolactone if needed but in meantime increased PO KCl supplementation> Losartan to remain on hold at sd given prior +orthostatic VS and improvement in EF but can discuss reumption in f/u with cardiology. Weight 193kg--> 165.4kg at sd. Consider SGLT2 vs ozempic in f/u for additiaonl weight loss benefit in patient w/ new dx "pre-DM" #N/v, intermittent/waxing and waning. GI consulted, CTAP obtained neg for acute finding. Liver US unremarkable but maybe mild cirrhosis? ?2nd to fatty liver. Cdiff negative x 3. PPI BID, carafate continued at sd, short rx reglan 5mg AC/HS and tolerating diet withtout further n/v x 48hr. CXR neg for PNA. F/u GI as below # Nutritional deficiencies (Vit D, B12), Mood concerns/suspected depression/anxiety- suspect large component of depression regarding overall health/mobility leading to current presentation and inability to care for himself at home due to progression of above. TSH wnl, B1 wnl. s/p IM B12 x 7 doses, continued on PO and rx'd at sd. Vitamin D VERY LOW@9.5 -->Ergocalciferol 04600 units WEEKLY x 8 weeks recommended and provided 2 doses here (last dose 09/30). Repeat level w/ PCP in f/u. Support provided, BHU and outpt f/u to consider meds if needed/agreeable #MARILY - did not tolerate CPAP inpatient and needs to have repeat study outpt if not done and ask about another mask. Encouraged f/u and start CPAP #Abnormal liver u/s ?cirrhosis, #Hypoalbuminemia-AST was elevated on admit but normalized, low albumin. No etoh. CTAP no acute process, GI consulted and no EGD planned. ?obesity w/ progressive fatty liver, possible early cirrhotic changes. Torsemide continued as outlined at lower dose and can consider spironolactone if needed but no ascites and should have f/u GI for EGD/scope in follow up #HTN, #Hyperlipidemia - adjustments as outlined and back on 100mg (50+50mg) metorpolol for HR control w/ stable rates. Torsemide adj and OFF losartan at sd for now until f/u cards. Remains on statin #Prediabetes, morbid obesity w/ BMI 50- A1c 5.8, no prior hx DM. Discussed w/ patient and will need counseling in follow up. Consider ref to [facility] weight loss clinic/consider ozempic/etc? #Myocardial demand ischemia --elevated troponin 2nd to such; no evidence of ACS and demand ischemia suspected 2nd to sepsis. Peaked troponin to 60s. ECHO w/o wma, normal EF #DVT proph - eliquis 5mg BID Dispo: discharged to [facility] for ongoing rehab. Completed course abx and monitor for any more fevers now after completed abx. Ongoing wound care/lymphedema clinic, PCP, Cardiology, GI follow up at discharge recommended as well as counseling/psych as needed Notes For Next Care Provider Ensure lymphedema follow up, follow up on CPAP device if testing already completed but otherwise needs done/arranged Transition to once daily metoprolol as outlined if BP tolerates and ensure f/u Dr Santos from [facility] cardiology and Lymphedema w/ [facility] for home visits please Continued emotional/mental support- consideration to start medication if patient agreeable but has declined for now Did have temp 38C x 2 but as discussed with supervising provider, felt related to medication w/ slight rash to R flank/face (not worse since completed) but should monitor for any issues. WBC NOT elevated and procal <0.5 w/ normal UA and CXR without abdominal pain and repeat cdiff negative and LFTs wnl but did have elevated eosinophils Medication Changes From Visit Metoprolol changed to 50mg BID Torsemide decreased to 20mg daily Potassium chloride increased 20meq daily Protonix 40mg BID Carafate AC/HS x 2 wks Reglan AC/HS x 2 wks (can stop sooner if no further issues) Ergocalciferol 10457 weekly x 6 weeks (next dose 10/07) Admission HPI Per Admitting Provider Jose De Jesus Bay is a 58 year old male who presents to the ER with fever, vomiting, generalized weakness, left leg swelling and erythema. He has chronic lymphedema but reports worsening leg swelling and erythema for the last 1.5 weeks. He reports nausea and vomiting for the last 2 days with fever, chills, left leg erythema, swelling and pain. No abdominal pain, change in bowels, hematemesis, melena or hematochezia. EMS reported that the patient was hypoxic on room air 82% however he denies any shortness of breath, cough or chest pain. No urinary symptoms. Some concern for obstructive sleep apnea however he is yet to undergo testing for this. Admission Exam Per Admitting Provider Constitutional: well developed; + not well nourished and no acute distress Eyes: + anicteric sclerae; normal pupil size ENMT: Mouth: + dry oral mucous membranes Respiratory: normal respiratory effort, lungs clear to auscultation Cardiovascular: Rate/Rhythm: + tachycardic and + irregularly irregular Heart Sounds: + murmur (MARIE 3/6 LUSB) Extremities: normal capillary refill and + pedal edema Gastrointestinal (Abdomen): normal bowel sounds, soft, nontender, no hepatosplenomegaly Skin: Left leg erythema and swelling from chronic venous ulcers to groinRight lower extremity with venous ulcerations with weeping ulcers Neurologic: moves all extremities and awake; not confused Psychiatric: A+Ox3, euthymic affect Discharge Exam gen - 58 yo morbidly obese male laying sitting up in chair, improved spirits today, NAD HEENT: head atraumatic, +facial hair, trachea midline, mmm Resp: even/unlabored but diminished bases, no wheezing/rales, able to speak in complete sentences, occ nonproductive cough, on room air 93% CV: irregularly irregular, rates 80s, b/l lymphedema/elephantiasis, b/l LE edema improving (lymphedema/skin as below), sensation intact but some neuropathy GI: +BS, obese, soft/no overt tenderness/guarding/rebound no gleason, voiding in urinal MSK/Neuro:generalized weakness improving daily, nonfocal, moves all extremities, not confused, answering questions appropriately Skin: severe stasis changes, dark brown skin with cracking/crusting appearance/hyperkeratosis of all areas (much improved). cellulitis MUCH improved proximal anterior L thigh laterally -- full resolved * massive lymphedema/elephantiasis appearance of both legs; lymphedema extends to distal thighs; pulses b/l feet 2+; his edema is actually modestly better than last week especially in his feet and today to upper thighs Psych:AOx3, cooperative/pleasant during encounter, less depressed today/improved mood. No SI/HI, tearful/thankful for care Discharge Plan Discharge Items Patient Disposition: Transfer [facility] Reason For Visit: SEPSIS Discharge Diagnosis: Sepsis, Bacteremia, Cellulitis Condition on Discharge: Critical Goals: You have been hospitalized for an acute medical problem. During your stay at [facility], we have made an effort to correct the problem that brought you to the hospital while keeping you as comfortable as possible. Medications were used to bring your condition under control and your discharge instructions will include directions for any medications you should take after leaving the hospital. Please make sure you see your Primary Care Provider as part of your follow up plan. Activity: As commented below Non-emergency contact: Primary Care Provider, Back Shoe Operator and Gastroenterologis t Call non-emergency contact if: you have any medication questions, your symptoms worsen, your pain is concerning for you and you have a fever Follow-up/Referrals: Lul Basilio DO [Physician] - Walter Santos MD [Physician] - Melody Jones MD [Primary Care Provider] - Diet: Heart Healthy Addtl Attending Provider Instructions: You have been hospitalized for sepsis which was likely due to cellulitis from the legs. Infectious disease was consulted and you completed TWO WEEKS of antibiotics. I suspect the fever was related to medications and should have repeat blood counts weekly and monitoring for any return of infectious origin. You metoprolol has been adjusted to 50mg by mouth twice daily and your torsemide has been reduced to 20mg daily for now. You will need ongoing follow up with cardiology for adjustments but have your lisinopril on HOLD for now. Please continue amlactin cream twice daily to the legs. You should discuss lymphedema clinic/options in follow up at discharge as well. You also have been started on protonix twice daily and carafate to help with reflux. You should also have follow up for EGD/colonoscopy with GI in the future for possible early cirrhosis which could be related to fatty liver disease. Your B12 and Vitamin D were low and you have been continued on replacement. Your A1c was also slightly elevated and you have "pre-diabetes" which will need followed up. Please continued to follow up with primary care in the next 7-10 days. Cardiology, wound care, lymphedema clinic as well as GI for findings on imaging. Please return to the ER with any repeat/worsening fever, rash, redness/drainage/pain, chest pain, shortness of breath, worsening abdominal pain /nausea/vomiting or for any other symptoms concerning for you. Take care! Pending Studies at Discharge: No Stand-Alone Forms: [facility] Skilled Items Patient informed of condition?: Yes DNR: No Discharge Level of Care: Acute rehab Communicable Disease: No Discharge Prognosis: Stable Lines: None Urinary Catheter: No Medications and DC Order Prescriptions: New torsemide 20 mg Tablet 20 mg PO QAM Qty: 30 0RF metoprolol succinate 50 mg Tablet Extended Release 24 Hr 50 mg PO BID Qty: 60 0RF sucralfate 100 mg/mL Suspension 1 g PO QID 14 Days Qty: 560 0RF metoclopramide HCl 5 mg Tablet 5 mg PO ACHS Qty: 28 0RF pantoprazole 40 mg Tablet,Delayed Release (Dr/Ec) 40 mg PO BID Qty: 60 0RF Lac-Hydrin Five 5 % Lotion 1 applic EXT BID Qty: 226 0RF cyanocobalamin (vitamin B-12) 500 mcg Tablet 1,000 mcg PO QAM Qty: 30 0RF ergocalciferol (vitamin D2) 1,250 mcg (50,000 unit) Capsule 1,250 mcg PO Q7D Qty: 6 0RF potassium chloride 20 mEq tablet extended release 20 meq PO DAILY Qty: 30 0RF Continued multivitamin Tablet 1 tab PO DAILY Eliquis 5 mg tablet 5 mg PO BID 90 Days Qty: 180 2RF rosuvastatin 20 mg tablet 20 mg PO DAILY 90 Days Qty: 90 4RF Held losartan 25 mg tablet 25 mg PO QAM 90 Days Qty: 90 3RF Hold Instructions: until seen in follow up Discontinued metoprolol succinate 100 mg tablet extended release 24 hr 100 mg PO QAM 90 Days Qty: 90 3RF torsemide 100 mg tablet 100 mg PO DAILY 90 Days Qty: 90 2RF Discharge Orders: Discharge Order (Routine); Ordered 09/30/24 Ordered By: Mary Jane Mcdowell Admission Data Admit Date/Time: 09/16/24 23:58 Attending Provider: Shashi White Admit Provider: Alon Casey Primary Care Provider: Melody Jones Other Providers: [facility]; Alon Casey; Reynold Finn; Bren Jiang [facility]; [facility] Other Interventions: Discharge Summary Assessment (RN) Last Done: 09/30/24 11:13 Hospital Stay Data Consultations 09/17/24 00:41 ED Decision to Admit Stat 09/19/24 07:22 Consult Infectious Diseases Routine 09/25/24 08:45 Consult Gastroenterology Routine 09/28/24 11:13 Consult Behavioral Health Liaison Routine Diagnostic Imagining Performed Chest X-Ray 09/16/24 21:34 Exam(s): XR CXR 1 VIEW EXAM: XR Chest, 1 View CLINICAL HISTORY: Reason for exam: Sepsis. TECHNIQUE: Frontal view of the chest. COMPARISON: September 29, 2016 FINDINGS: Lungs: Unremarkable. No consolidation. Pleural space: Unremarkable. No pneumothorax. Heart: The cardiac silhouette is mildly enlarged, exaggerated by body habitus, portable technique, an expiratory chest. Mediastinum: Unremarkable. Normal mediastinal contour. Bones/joints: Unremarkable. No acute fracture. Upper abdomen: Unremarkable as visualized. No pneumoperitoneum under the diaphragm. IMPRESSION: The cardiac silhouette is mildly enlarged, exaggerated by body habitus, portable technique, an expiratory chest. Electronically signed by: Yury Vargas MD 09/17/24 00:55 AM Tibia/Fibula X-Ray 09/16/24 21:35 Exam(s): XR LEFT TIB/FIB, 2 views EXAM: XR Left Tibia and Fibula, 2 Views CLINICAL HISTORY: Reason for exam: leg swelling infection. TECHNIQUE: Frontal and lateral views of the left tibia and fibula. COMPARISON: No relevant prior studies available. FINDINGS: Bones/joints: Severe narrowing and mild osteophytosis of the medial joint space as well as mild narrowing and osteophytosis of the lateral joint space and patellofemoral joint space consistent with osteoarthritis of the left knee. Mild degenerative changes in the left ankle. No fracture or dislocation is seen. Soft tissues: There is diffuse soft tissue edema throughout the visualized left lower leg. No subcutaneous emphysema or foreign body is seen. IMPRESSION: There is diffuse soft tissue edema throughout the visualized left lower leg. No subcutaneous emphysema or foreign body is seen. Mild to moderate osteoarthritic changes of the left knee and ankle. No acute fracture or dislocation is seen. Electronically signed by: Yury Vargas MD 09/17/24 00:57 AM Tibia/Fibula X-Ray 09/16/24 21:35 Exam(s): XR RIGHT TIB/FIB, 2 views EXAM: XR Right Tibia and Fibula, 2 Views CLINICAL HISTORY: Reason for exam: leg swelling infection. TECHNIQUE: Frontal and lateral views of the right tibia and fibula. COMPARISON: No relevant prior studies available. FINDINGS: Bones/joints: Moderate lateral and severe medial knee joint space narrowing and osteophytosis consistent with osteoarthritis. No acute fracture. No dislocation. Soft tissues: Diffuse soft tissue edema throughout the right lower leg. No subcutaneous emphysema or foreign body is seen. IMPRESSION: 1. Diffuse soft tissue edema throughout the right lower leg. No subcutaneous emphysema or foreign body is seen. 2. Moderate lateral and severe medial knee joint space narrowing and osteophytosis consistent with osteoarthritis. There are also mild osteoarthritic changes of the right ankle. No acute fracture or dislocation is seen. Electronically signed by: Yury Vargas MD 09/17/24 00:[address] 09/17/24 00:31 EXAM: CT femur LT w con CLINICAL HISTORY: left leg swelling, cellulitis ?abscess TECHNIQUE: Multislice CT was performed for the left hip with contrast (119 ml opti 320) then multiplanar reconstruction in sagittal and coronal planes. Images were sent through PACs for interpretation. One of the following dose reduction techniques was utilized for this exam: Automated exposure control, adjustment of the mA and/or kV according to patient size, and use of iterative reconstruction. CTDI: mGy DLP: mGy*cm. COMPARISON: No prior images for comparison. FINDINGS: Soft Tissues: Diffuse subcutaneous fat swelling and edema of both thighs, mainly along the medial aspects with ill definitions of the epimuscular fascia. No loculated collections or intramusclar extensions however proper soft tissue assessment requires MRI. Bones: Normal alignment of the femoral heads, necks, and acetabula. Signs of chronic advanced knee osteoarthritic changes with genu vara. No fractures, lytic, or sclerotic lesions. No evidence of avascular necrosis of the femoral heads. No signs of hip septic arthritis or bony erosive changes. Vascular Structures: Normal opacification of the visualized arteries and veins. No evidence of aneurysm, thrombosis, or significant vascular abnormalities. Prominent left axillary lymph nodes. IMPRESSION: 1. Diffuse subcutaneous fat swelling and edema of both thighs, mainly along the medial aspects, likely due to inflammatory process (cellulitis), other differential is due to generalized body edema. For clinical correlations. 2. No localized collections. 3. Osteoarthritic changes of left knee joint. Electronically signed by Jose Maria Adams 09-17-2024 03:[address] 09/17/24 01:08 EXAM: CT tib/fib LT w con CLINICAL HISTORY: left leg cellulitis ?abscess TECHNIQUE: Thin axial images post contrast (119 ml opti 320) of the left tibia/fibula were obtained along with coronal and sagittal reconstructions. One of the following dose reduction techniques were utilized for this exam: Automated exposure control, adjustment of the mA and/or kV according to patient size, and use of iterative reconstruction. COMPARISON: None. FINDINGS: Bones: Normal alignment of the lower femur, tibia, fibula, and patella. No fractures or dislocations. No lytic or sclerotic lesions. No evidence of bone marrow edema. No osteomyelitis of the underlying bone. Joint Space: Narrowed knee joint space with marginal osteophytes and subchondral sclerosis denoting degenerative changes Soft Tissues: Diffuse skin / subcutaneous tissue edema and thickening of the left lower leg are suggestive of cellulitis, with no localized fluid collection or abscess formation. Similar and to a lesser extent, changes are noted in the visualized parts of the right leg. Patent venous blood flow and visualized vasculature. No thrombosis. IMPRESSION: 1. Diffuse skin / subcutaneous tissue edema and thickening of the left lower leg, suggestive of cellulitis, no localized fluid collection or abscess formation. 2. Similar and to a lesser extent, changes are noted in the visualized parts of the right leg. 3. No osteomyelitis of the underlying bone 4. Knee osteoarthritic changes Electronically signed by Jose Maria Adams 09-17-2024 03:57 AM Liver Ultrasound 09/22/24 06:23 US liver CLINICAL HISTORY: hypoalbuminemia, abnl LFTs; cirrhosis? COMPARISON STUDY: CT of the abdomen and pelvis March 02, 2016. FINDINGS: This exam is moderately compromised by suboptimal penetration. There is coarsening of hepatic echotexture liver and nodularity of the liver surface. No hepatic lesions are identified although sensitivity is significantly diminished on this exam. There is no biliary ductal dilatation. No gallstones are visualized. There is no gallbladder wall thickening. Pancreatic body is normal. Head and tail are obscured. There is no right hydronephrosis. IMPRESSION: 1. Suspected cirrhosis. No hepatic lesions identified although sensitivity significantly diminished given suboptimal penetration. 2. No gallstones or biliary ductal dilatation. ACT 112: Negative or not required by law. Electronically signed by: Agus Servin M.D. 09/22/2024 8:35 AM Abdomen/Pelvis CT 09/22/24 17:08 Exam(s): CT ABDOMEN + PELVIS With Contrast IV Amt: 115 ml optiray 320 EXAM: CT Abdomen and Pelvis With Intravenous Contrast CLINICAL HISTORY: Reason for exam: malnourished, central abd pain x 4 months. TECHNIQUE: Axial computed tomography images of the abdomen and pelvis with intravenous contrast. CTDI is 28.14 mGy and DLP is 1415.4 mGy-cm. Automated exposure control was utilized for the study. A dose lowering technique was utilized adhering to the principles of ALARA. CONTRAST: Patient received 115 ml optiray 320 of IV contrast COMPARISON: No relevant prior studies available. FINDINGS: Pleural space: Trace pleural effusions. ABDOMEN: Liver: Unremarkable. Gallbladder and bile ducts: Unremarkable. Pancreas: Unremarkable. Spleen: Unremarkable. Adrenals: Unremarkable. Kidneys and ureters: Unremarkable. No obstructing stones. No hydronephrosis. Stomach and bowel: No bowel obstruction. No inflammatory changes. Mild gaseous distention of the transverse colon. PELVIS: Appendix: No findings to suggest acute appendicitis. Bladder: Gleason catheter in the bladder. Reproductive: Unremarkable as visualized. ABDOMEN and PELVIS: Intraperitoneal space: Unremarkable. No free air. No significant fluid collection. Bones/joints: No acute fracture. Soft tissues: Unremarkable. Vasculature: Unremarkable. Lymph nodes: Unremarkable. IMPRESSION: 1. No acute abnormality in the abdomen or pelvis. 2. Trace pleural effusions. Electronically signed by: Mamadou Rosas MD 09/22/24 20:15 PM Chest/Abdomen X-ray 09/25/24 12:04 XR abdomen 2V w PA chest CLINICAL HISTORY: Nausea vomit COMPARISON STUDY: 09/16/2024 chest x-ray and abdominal CT of 09/22/2024 FINDINGS: Chest Stable mild cardiomegaly without pulmonary vascular congestion. No effusion, consolidation, or pneumothorax. ABDOMEN: There is grossly stable diffuse predominantly gaseous colonic distention measuring up to 13 cm diameter. No small bowel distention seen. No gross free air. IMPRESSION: 1. No acute findings seen in the chest. 2. Grossly stable colonic distention. ACT 112: Negative or not required by law. Electronically signed by: Oscar Marcos M.D. 09/25/2024 2:04 PM Chest X-Ray 09/29/24 07:37 XR chest 1V portable CLINICAL HISTORY: fever COMPARISON STUDY: 09/25/2024 FINDINGS: Single view portable chest unchanged allowing for technical differences. No definite air space opacity or pleural effusion. There is no pneumothorax or atelectasis. The heart remains mildly enlarged. Pulmonary vascularity is unremarkable. Right diaphragm remains elevated most likely on a chronic basis. Left diaphragm is obscured but this is likely technical due to lordotic positioning. IMPRESSION: Stable exam; no acute process identified. ACT 112: Negative or not required by law. Electronically signed by: Erica Mcneal M.D. 09/29/2024 9:12 AM ECHOCARDIOGRAM 09/17/24 The left ventricle is normal in size There is mild concentric left ventricular hypertrophy The left ventricular ejection fraction is normal. Left ventricular ejection fraction 60-65% The right ventricle is borderline dilated The left atrial size is normal Grade I diastolic dysfunction (abnormal relaxation pattern) Discharge Instructions Given to Patient (Per Discharging Provider) You have been hospitalized for sepsis which was likely due to cellulitis from the legs. Infectious disease was consulted and you completed TWO WEEKS of antibiotics. I suspect the fever was related to medications and should have repeat blood counts weekly and monitoring for any return of infectious origin. You metoprolol has been adjusted to 50mg by mouth twice daily and your torsemide has been reduced to 20mg daily for now. You will need ongoing follow up with cardiology for adjustments but have your lisinopril on HOLD for now. Please continue amlactin cream twice daily to the legs. You should discuss lymphedema clinic/options in follow up at discharge as well. You also have been started on protonix twice daily and carafate to help with reflux. You should also have follow up for EGD/colonoscopy with GI in the future for possible early cirrhosis which could be related to fatty liver disease. Your B12 and Vitamin D were low and you have been continued on replacement. Your A1c was also slightly elevated and you have "pre-diabetes" which will need followed up. Please continued to follow up with primary care in the next 7-10 days. Cardiology, wound care, lymphedema clinic as well as GI for findings on imaging. Please return to the ER with any repeat/worsening fever, rash, redness/drai nage/pain, chest pain, shortness of breath, worsening abdominal pain/nausea/vomiting or for any other symptoms concerning for you. Take care! Supervising Physician Co-Signing Physician Notes The patient was not seen by me. The chart was reviewed. Case discussed with HARSHAL Acharya. Agree with assessment and plan Total Time Total Time Spent Total Time Spent (In Minutes): 120 Coding Level of Care Code 18586 INP/OBS DISCH >30 MIN Diagnoses Bacteremia R78.81 Sepsis A41.9 Cellulitis L03.90 Atrial fibrillation with RVR I48.91 Lymphedema I89.0 Demand ischemia of myocardium I24.89 Elevated troponin R79.89 Morbid obesity with BMI of 50.0-59.9, adult E66.01; Z68.43 Hypertension I10 Dyslipidemia E78.5 Hypoalbuminemia E88.09 Abnormal finding on imaging of liver R93.2 Vitamin D deficiency E55.9 Macrocytosis D75.89 Colon distention K63.89
== END 2024-09-30 14:21 | DRG 872 ==
LOC: SUATTDRO → ED 21:26 → 2S 23:58 → SUATTDRO 23:58 → 2S 09-17 02:45 → 3W 09-24 21:20